=== PATIENT | male | born 1955 | race Caucasian/White ===

== ENCOUNTER 2019-10-12 15:25 | Observation (INO) | payer OTHER, SELFPAY ==
--- NOTE | ~2019-10-12 | US_ITS ---
EXAMINATION: US renal BI DATE: 10/13/2019 16:32 INDICATION: Urinary retention. Indeterminate left renal lesion on prior CT. TECHNIQUE: Multiple ultrasound grayscale images of the kidneys were obtained. COMPARISON: CT dated 10/12/2019 FINDINGS: The right kidney measures 12.6 x 5.8 x 6.0 cm. The left kidney measures 12.2 x 5.2 x 5.7 cm. The kidn eys demonstrate normal echogenicity. The left renal lesion of concern corresponds to a 2.0 cm simple appearing anechoic cyst. There is no hydronephrosis in either kidney. No stones identified. The blad segundo is clearly visualized, likely decompressed around a Wu catheter.. IMPRESSION: 1. Left renal lesion of concern corresponds to a 2.0 cm anechoic cyst. Otherwise normal kidneys with out hydronephrosis. Reviewed, dictated and finalized at location A. UNICATIONS DEPARTMENT CHAIRPERSON IMPRESSION: 1. Left renal lesion of concern corresponds to a 2.0 cm anechoic cyst. Otherwi se normal kidneys without hydronephrosis.
--- NOTE | ~2019-10-12 | CT_ITS ---
EXAMINATION: CT abdomen pelvis w con DATE: 10/12/2019 19:53 INDICATION: Right flank pain TECHNIQUE: Computed tomography (CT) of the abdomen and pelvis was performed with 100 mL Omnipaque-350 intravenous contrast. Automated exposure control and iterative reconstruction technique were employe d. The dose-length product was 811.91 mGy-cm. COMPARISON: None FINDINGS: Lung bases are clear. Heart size is normal. No pericardial or pleural effusion. Small sliding-type hi atal hernia. Liver, gallbladder, spleen, pancreas and bilateral adrenal glands are normal. A couple s ubcentimeter low-attenuation likely cyst in the right kidney which are too small to definitively bright acterize. 2.1 cm exophytic lesion at the interpolar region of the left kidney most likely proteinaceo us/hemorrhagic cyst although solid neoplasm cannot be absolutely excluded. Bladder is normal. Prostat omegaly. There are few scattered colonic diverticula predominantly along the proximal sigmoid colon w ithout adjacent inflammatory change to suggest diverticulitis. Small bowel and appendix are normal. B ilateral small fat-containing inguinal hernias. No free intraperitoneal gas or fluid. No pathological ly enlarged abdominal or pelvic lymphadenopathy. Moderate lower lumbar spondylosis. IMPRESSION: 1. No acute intra-abdominal/pelvic process. 2. 2.1 cm indeterminate exophytic left renal lesion most likely proteinaceous/hemorrhagic cyst althou gh solid neoplasm cannot be excluded. Could consider further evaluation with either ultrasound or pre and postcontrast CT or MRI. 3. Bilateral small fat-containing inguinal hernias. 4. Prostatomegaly. 5. Small sliding-type hiatal hernia. Reviewed, dictated and finalized at location A. OMER EXPERIENCE MANAGER IMPRESSION: 1. No acute intra-abdominal/pelvic process. 2. 2.1 cm indeterminate exophytic left renal lesion most likely proteinaceous/h emorrhagic cyst although solid neoplasm cannot be excluded. Could consider furt her evaluation with either ultrasound or pre and postcontrast CT or MRI. 3. Bilateral small fat-containing inguinal hernias. 4. Prostatomegaly. 5. Small sliding-type hiatal hernia.
[2019-10-12 15:52] VITALS: BP 152/81; PULSE 104; RESP 18; TEMP 37.9; O2SAT 95
[2019-10-12 16:11] LABS: Basophils Percent Auto 0.2 % (0.2-1.2); Eosinophils Absolute Auto 0.1 K/mm3 (0-0.3); Eosinophils Percent Auto 0.4 % (0-4.4); Hematocrit 46.3 % (42.0-52.0); Hemoglobin 15.5 g/dL (14.0-18.0); Immature Granulocyte Absolute 0.05 K/mm3 (0.00-0.031); Immature Granulocyte Percent A 0.3 % (0-0.5); Lymphocytes Absolute Auto 1.68 K/mm3 (0.9-3.2); Lymphocytes Percent Auto 10.8 % (18.3-44.2); Mean Corpuscular HGB Conc 33.5 g/dl (32-36); Mean Corpuscular Hemoglobin 30.3 pg (26-34); Mean Corpuscular Volume 90.6 fl (80-100); Mean Platelet Volume 9.4 fl (7.4-10.4); Monocytes Absolute Auto 1.5 K/mm3 (0.1-0.6); Monocytes Percent Auto 9.6 % (2.6-8.5); Neutrophils Absolute Auto 12.3 K/mm3 (1.3-6.7); Neutrophils Percent Auto 78.7 % (45.5-73.1); Platelet Count Result 312 k/mm3 (150-375); Red Blood Count 5.11 M/mm3 (4.6-6.20); Red Cell Distribution Width 12.3 % (11.5-14.5); White Blood Count 15.6 K/mm3 (4.5-10.0)
[2019-10-12 16:24] LABS: Blood Urea Nitrogen 18 mg/dL (9-20); Calcium 9.2 mg/dL (8.4-10.2); Carbon Dioxide 28 mmol/L (22-30); Chloride 97 mmol/L (98-107); Estimated CRCL calculation 71 ml/min; Estimated Glomerular Filt Rate > 60; Glucose 103 mg/dL (75-110); Potassium 4.3 mmol/L (3.4-5.0); Sodium 135 mmol/L (137-145)
[2019-10-12 16:31] LABS: Add Urine Microscopic? YES; Appearance Urine Clear (Clear); Bacteria Urine Trace /hpf; Bilirubin Urine Negative (Negative); Blood Urine 1+ (Negative); Color Urine Yellow (Yellow); Glucose Urine UA Negative (Negative); Ketones Urine Trace mg/dL (Negative); Leukocyte Esterase Ur 2+ LEU/UL (Negative); Mucus Urine Moderate /lpf; Nitrate Urine Negative (Negative); Protein Urine 1+ mg/dL (Negative); Specific Grav Ur 1.016 (1.001-1.035); WBC Urine >75 /hpf
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
[2019-10-12 18:03] LABS: Lactic Acid Reflex 1.2 mmol/L (0.7-2.1)
[2019-10-12] MEDS: SODIUM CHLORIDE 0.9% IV 1,000 ML 999 ML IV CONT (19:02)
[2019-10-12 20:15] VITALS: BP 138/63; PULSE 118; RESP 20; TEMP 38.2; O2SAT 99; BMI 26.7
[2019-10-12 20:53] VITALS: BMI 27.0
--- NOTE | 2019-10-12 20:57 | ADMGEN ---
This patient, Varghese Wild, was admitted to [facility] Surg Room 323-01. Patient/family oriented to hospital policies and general routines including ID bracelet, bed and alarms, visiting hours, pain management, procedures, bathroom and other care routines, personal items, smoking policy, room service/diet, and visiting hours. Valuables list has been completed. Information on how to activate the Rapid Response Team has been discussed. Patient/Family are encouraged to report perceived risks to care and to ask questions if they do not understand what they are told or what they should do.
[2019-10-13] VITALS (7 sets, daily range): BP systolic 109–118; BP diastolic 49–71; PULSE 88–136; RESP 18–20; TEMP 36.6–37.4; O2SAT 95–98
[2019-10-13] MEDS: SODIUM CHLORIDE 0.9% IV 1,000 ML 125 ML IV CONT ×3 (05:27→21:57)
--- NOTE | 2019-10-13 07:58 | ECG_ITS ---
Measurements Intervals [place] Rate: 136 P: 232 IA: 139 QRS: 78 QRSD: 95 T: 38 QT: 287 QTc: 433 Interpretive Statements SINUS TACHYCARDIA BORDERLINE R WAVE PROGRESSION, ANTERIOR LEADS BASELINE ARTIFACT- V4, V6 ABNORMAL ECG Electronically Signed On 10-13-2019 9:32:53 WIRE ROPE FABRICATION SUPERVISOR by Pedro Brenner D.O.
[2019-10-13] MEDS: CHOLECALCIFEROL 1,000 UNIT TABLET 5000 UNITS PO (08:00)
[2019-10-13] MEDS: FOLIC ACID 0.4 MG TABLET PO (08:11)
[2019-10-13] MEDS: METOPROLOL SUCCINATE EXT REL 25 MG TABCR PO (08:12)
[2019-10-13] MEDS: CYANOCOBALAMIN 500 MCG TABLET PO (08:12)
[2019-10-13] MEDS: THIAMINE HCL 100 MG TABLET PO (08:13)
[2019-10-13] MEDS: ASPIRIN 325 MG TABLET PO (08:13)
[2019-10-13] MEDS: ENOXAPARIN 40 MG/0.4 ML SYRINGE SUB-Q (08:13)
[2019-10-13 08:42] LABS: Troponin I < 0.012 ng/mL (0.000-0.034)
[2019-10-13] MEDS: TAMSULOSIN HCL 0.4 MG CAPSULE PO (10:34)
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
[2019-10-13] MEDS: DILTIAZEM HCL 30 MG TABLET PO ×3 (14:22→23:49)
[2019-10-13 15:43] LABS: Basophils Percent Auto 0.2 % (0.2-1.2); Eosinophils Absolute Auto 0.1 K/mm3 (0-0.3); Eosinophils Percent Auto 0.7 % (0-4.4); Hematocrit 39.5 % (42.0-52.0); Hemoglobin 12.8 g/dL (14.0-18.0); Immature Granulocyte Absolute 0.04 K/mm3 (0.00-0.031); Immature Granulocyte Percent A 0.3 % (0-0.5); Lymphocytes Percent Auto 15.4 % (18.3-44.2); Mean Corpuscular HGB Conc 32.4 g/dl (32-36); Mean Corpuscular Hemoglobin 29.8 pg (26-34); Mean Corpuscular Volume 92.1 fl (80-100); Mean Platelet Volume 9.3 fl (7.4-10.4); Monocytes Absolute Auto 1.4 K/mm3 (0.1-0.6); Monocytes Percent Auto 10.8 % (2.6-8.5); Neutrophils Absolute Auto 9.4 K/mm3 (1.3-6.7); Neutrophils Percent Auto 72.6 % (45.5-73.1); Platelet Count Result 236 k/mm3 (150-375); Red Blood Count 4.29 M/mm3 (4.6-6.20); Red Cell Distribution Width 12.4 % (11.5-14.5)
[2019-10-13 16:06] LABS: Blood Urea Nitrogen 11 mg/dL (9-20); Calcium 6.9 mg/dL (8.4-10.2); Carbon Dioxide 23 mmol/L (22-30); Chloride 111 mmol/L (98-107); Estimated CRCL calculation 114 ml/min; Estimated Glomerular Filt Rate > 60; Glucose 81 mg/dL (75-110); Potassium 3.4 mmol/L (3.4-5.0); Sodium 140 mmol/L (137-145)
[2019-10-13] MEDS: ACETAMINOPHEN 325 MG TABLET 650 MG PO (23:52)
[2019-10-14] VITALS: PULSE 86
[2019-10-14 04:00] VITALS: PULSE 72
[2019-10-14] MEDS: SODIUM CHLORIDE 0.9% IV 1,000 ML 80 ML IV CONT (05:20)
[2019-10-14 05:48] VITALS: BP 106/66; PULSE 77; RESP 16; TEMP 36.5; O2SAT 96
--- NOTE | 2019-10-14 05:58 | PC.NURSE ---
Blood cultures drawn at this time by causticiser. Will administer ordered antibiotic now.
[2019-10-14] MEDS: DILTIAZEM HCL 30 MG TABLET PO ×2 (06:04→11:45)
[2019-10-14] MEDS: AMPICILLIN 1 GM/NS 50 ML 1 GM/50 ML BAG IVPB ×2 (06:04→11:48)
[2019-10-14 06:33] LABS: Basophils Percent Auto 0.2 % (0.2-1.2); Eosinophils Absolute Auto 0.2 K/mm3 (0-0.3); Eosinophils Percent Auto 1.3 % (0-4.4); Hematocrit 39.5 % (42.0-52.0); Immature Granulocyte Absolute 0.06 K/mm3 (0.00-0.031); Immature Granulocyte Percent A 0.5 % (0-0.5); Lymphocytes Absolute Auto 1.82 K/mm3 (0.9-3.2); Lymphocytes Percent Auto 14.2 % (18.3-44.2); Mean Corpuscular HGB Conc 32.9 g/dl (32-36); Mean Corpuscular Hemoglobin 30.2 pg (26-34); Mean Corpuscular Volume 91.6 fl (80-100); Mean Platelet Volume 9.6 fl (7.4-10.4); Monocytes Absolute Auto 1.4 K/mm3 (0.1-0.6); Monocytes Percent Auto 11.3 % (2.6-8.5); Neutrophils Absolute Auto 9.3 K/mm3 (1.3-6.7); Neutrophils Percent Auto 72.5 % (45.5-73.1); Platelet Count Result 279 k/mm3 (150-375); Red Blood Count 4.31 M/mm3 (4.6-6.20); Red Cell Distribution Width 12.3 % (11.5-14.5); White Blood Count 12.8 K/mm3 (4.5-10.0)
[2019-10-14 06:46] LABS: Blood Urea Nitrogen 16 mg/dL (9-20); Calcium 8.6 mg/dL (8.4-10.2); Carbon Dioxide 23 mmol/L (22-30); Chloride 105 mmol/L (98-107); Estimated CRCL calculation 88 ml/min; Estimated Glomerular Filt Rate > 60; Glucose 99 mg/dL (75-110); Potassium 3.9 mmol/L (3.4-5.0); Sodium 138 mmol/L (137-145)
[2019-10-14 08:00] VITALS: PULSE 77; PULSE 81; RESP 16; O2SAT 96
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
[2019-10-14] MEDS: FOLIC ACID 0.4 MG TABLET PO (09:19)
[2019-10-14] MEDS: ASPIRIN 325 MG TABLET PO (09:19)
[2019-10-14] MEDS: CHOLECALCIFEROL 1,000 UNIT TABLET 5000 UNITS PO (09:19)
[2019-10-14] MEDS: ENOXAPARIN 40 MG/0.4 ML SYRINGE SUB-Q (09:20)
[2019-10-14] MEDS: CYANOCOBALAMIN 500 MCG TABLET PO (09:20)
[2019-10-14] MEDS: METOPROLOL SUCCINATE EXT REL 25 MG TABCR PO (09:21)
[2019-10-14] MEDS: TAMSULOSIN HCL 0.4 MG CAPSULE PO (09:21)
[2019-10-14] MEDS: THIAMINE HCL 100 MG TABLET PO (09:22)
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
--- NOTE | 2019-10-14 11:26 | PM.DS ---
DS: Diagnosis Admitting Diagnosis Admitting Diagnosis: Sepsis, unspecified organism Discharge Diagnosis (1) Sepsis: Qualifiers: Sepsis acute organ dysfunction status: unspecified Sepsis type: sepsis due to unspecified organism Qualified Code(s): A41.9 - Sepsis, unspecified organism Code(s): A41.9 - Sepsis, unspecified organism Status: Acute Assessment and Plan: The patient meets criteria for sepsis with tachycardia, low-grade fever, leukocytosis, and source of infection is a urinary tract infection. The patient was started on IV fluids, IV antibiotics for UTI. Today the patient's vitals are much improved. He has not had any more fever since yesterday, blood pressure is normal, heart rate is in the 70s, respiratory rate and oxygenation is normal on room air. Continue on antibiotics for UTI. (2) UTI (urinary tract infection): Qualifiers: Hematuria presence: without hematuria Urinary tract infection type: site unspecified Qualified Code(s): N39.0 - Urinary tract infection, site not specified Code(s): N39.0 - Urinary tract infection, site not specified Status: Acute Assessment and Plan: UTI as shown by urine analysis on arrival. Most likely secondary to BPH. This morning the patient's urine culture came back positive for Enterococcus species. It was zhang sensitive to both ampicillin and Macrobid. The patient was initially started on IV ampicillin this morning before sensitivities was back. Will continue the patient on oral antibiotics for Enterococcus UTI, with Macrobid 100 mg q.12hr for 7 days. Recommend a probiotic. Wu catheter was placed for urinary retention and have him follow-up with urology as an outpatient. (3) Prostatitis: Qualifiers: Prostatitis type: unspecified Qualified Code(s): N41.9 - Inflammatory disease of prostate, unspecified Code(s): N41.9 - Inflammatory disease of prostate, unspecified Status: Acute Assessment and Plan: On CT abdomen pelvis it showed prostatomegaly. Most likely releated to BPH. Started the patient on Flomax Urology was consulted and he will follow up with them as an outpatient. (4) Sinus tachycardia: Code(s): R00.0 - Tachycardia, unspecified Status: Acute Assessment and Plan: Could be secondary to acute infection with UTI, urinary retention or possible atrial flutter. Yesterday morning, he reported feeling palpitations and his heart rate was found to be in the 130s. He was placed on telemetry and an EKG was taken which showed sinus tachycardia heart rate 136 b. p.m. with no acute ST T-wave changes. The patient receive his metoprolol succinate 25 mg and was started on Cardizem 30 mg q6hrs of cardizem. Today, his Telemetry shows NSR, rate 76 bpm with few PVCs with one episode of sinus tachycardia >126 for almost 4 seconds then converted back to normal. Troponin was negative. Dr. Smiley evaluated the patient and recommended starting him on Cardizem 120 mg daily and follow up in his office in 1 week for furhter evaluation and medication changes if necessary. Explained to the patient about risk of bradycardia once UTI is treated correctly and to discontinue medication, Cardizem if his HR is below 60 bpm or if he is symptomatic after taking the medication and immediately call Dr. Cabrera office at that time for further evaluation. He understands and agrees with the plan. All questions answered. (5) History of atrial flutter: Code(s): Z86.79 - Personal history of other diseases of the circulatory system Status: Chronic Assessment and Plan: The patient recently had a cardioversion completed by Dr. Fredo HARDY coil assembler at [facility] July 2019 Since his cardio
--- NOTE | 2019-10-22 14:09 | PC.NURSE ---
Blood cx are negative.
== END 2019-10-14 13:30 | disposition home or self-care (01) ==
LOC: ANHED 18:51 → ANH3MEDSUR 18:59
PROVIDERS: Physician Assistant; Admitting Provider Internal Medicine; Emergency Provider Emergency Medicine; PCP Family Medicine; Visit Provider Internal Medicine
DX: A41.9 Sepsis, unspecified organism (principal); N39.0 Urinary tract infection, site not specified; B95.2 Enterococcus as the cause of diseases classified elsewhere; N41.9 Inflammatory disease of prostate, unspecified; N28.1 Cyst of kidney, acquired; Z79.82 Long term (current) use of aspirin; Z79.899 Other long term (current) drug therapy; Z86.79 Personal history of other diseases of the circulatory system; Z87.891 Personal history of nicotine dependence
CPT/HCPCS: 36415; 74177; 76775; 80048; 81001; 83605; 84484; 85025; 87040; 87077; 87086; 87088; 87186; 93005; 96360; 96361; 96365; 96372; 96374; 96376; 99285; A9270; G0378; J0290; J0696; J1650; J7030; Q9967

== ENCOUNTER 2022-02-11 09:19 | Outpatient (CLI) | payer OTHER, SELFPAY ==
--- NOTE | ~2022-02-11 | MR_ITS ---
EXAMINATION: MR pelvis wo/w con DATE: 02/11/2022 10:25 INDICATION: Malignant neoplasm of prostate. TECHNIQUE: Magnetic resonance imaging (MRI) of the pelvis was performed without and with 18 mL MultiH ance intravenous contrast. COMPARISON: CT abdomen and pelvis 10/12/2019 FINDINGS: The prostate is mildly enlarged. There is a 2.7 x 2.0 cm fluid collection between the rectum and pros posada, likely a hematoma. There are bilateral inguinal hernias containing fat. There are no pathologic ally enlarged lymph nodes. There is no free intraperitoneal fluid. There is no osseous malignancy. IMPRESSION: 1. Mildly enlarged prostate. No evidence of metastatic disease. Reviewed, dictated and finalized at location A.
[2022-02-11 09:46] LABS: Estimated Glomerular Filt Rate > 60
== END 2022-02-11 09:20 | disposition home or self-care (01) ==
LOC: ANHIMG 09:21
PROVIDERS: PCP Family Medicine; Visit Provider Radiology Radiation Oncology
DX: C61 Malignant neoplasm of prostate (principal)
CPT/HCPCS: 72197; A9577

== ENCOUNTER 2022-05-24 08:44 | Outpatient (CLI) | payer OTHER, SELFPAY ==
--- NOTE | ~2022-05-24 | US_ITS ---
EXAMINATION: US aorta [facility] DATE: 05/24/2022 09:33 CDT INDICATION: Screening for cardiovascular disease. Hypertension. Smoking history. High cholesterol. TECHNIQUE: Grayscale, color Doppler, and pulsed Doppler images of the aorta and common iliac arteries were obtained. COMPARISON: CT dated 10/12/2019. FINDINGS: The proximal aorta measures 2.8 cm greatest sagittal dimension. The mid aorta measures 2.2 cm greates t sagittal dimension. The distal aorta measures 1.8 cm greatest sagittal dimension. The right common internal iliac artery measures 1.3 cm. The left common iliac artery measures 1.3 cm. IMPRESSION: 1. Normal caliber aorta without evidence for aneurysm. Reviewed, dictated and finalized at location A.
== END 2022-05-24 08:45 | disposition home or self-care (01) ==
PROVIDERS: PCP Family Medicine; Visit Provider Physician Assistant
DX: Z13.6 Encounter for screening for cardiovascular disorders (principal)
CPT/HCPCS: 76706

== ENCOUNTER 2022-12-01 01:27 | Day surgery (SDC) | payer OTHER, SELFPAY ==
[2022-11-19 13:22] VITALS: BMI 27.9
--- NOTE | 2022-11-30 17:51 | PM.HPGS ---
History of Present Illness History of Present Illness Consent: Risks, benefits, and alternatives have been discussed and questions answered. Patient agrees to proceed with procedure. Chief complaint: neoplasm screening Narrative: Varghese Wild is a 67 year old male referred for colon cancer screening. Review of Systems Review of Systems: All systems reviewed & are unremarkable except as noted in HPI and below PMFSH Past Medical History Medical History BPH (benign prostatic hyperplasia) History of atrial flutter s/p ablation 07/2019 Overweight (BMI 25.0-29.9) Pre-diabetes Prostate cancer Sebaceous cyst Right upper shoulder Shingles about 5 years ago to left upper back, without residual issues Surgical History Surgical History History of tonsillectomy S/P ablation of atrial flutter 07/2019 [facility] S/P colonoscopy Status post radiation therapy Family History Family History Mother Patient's mother is Family history of lung cancer Father Patient's father is Heart attack 40's Heart disease Hypertension Social History Social History Social History: The patient had 2 sons and 1 in a motor vehicle accident. His Mirian Wild is his durable power privacy attorney for healthcare. The patient wishes to be a full code. 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 Patient started smoking when he was 12 years old and smoked for about 30 years. Smoking packs per day: 1 Smoking cigarettes per day: 20.0 Years smoked: 20 Smoking pack-years: 20.00 Smoking status: Former smoker Tobacco type: cigarettes Second hand tobacco smoke exposure: Yes Smoking end date: 09/05/90 Alcohol intake: current Alcohol use details: 2-3 drinks per month Substance use: never Substance use type: does not use Lack of Transportation: No Lack of Food: Never True Current Housing: I Have Housing Concerned About Future Housing: No Difficulty Paying Gas/Electric Bills: No Difficulty Paying for Meds: No Currently Unemployed: No Education: High School Diploma/GED Difficulty w/ Childcare or Family Care: No Living arrangements: with family Occupation/Education: retired Gender identity (if verbalized by the patient): Male Spiritual care concerns: No Agree to blood products: Yes Meds Home Medications and Allergies Home Medications Medication Instructions Recorded Confirmed Type cholecalciferol (vitamin D3) 125 5,000 unit PO DAILY 07/25/19 12/01/22 History mcg (5,000 unit) capsule cyanocobalamin (vitamin B-12) 500 500 mcg PO DAILY 07/25/19 12/01/22 History mcg tablet folic acid 400 mcg tablet 0.4 mg PO DAILY 07/25/19 12/01/22 History thiamine HCl (vitamin B1) 100 mg 100 mg PO DAILY 07/25/19 12/01/22 History tablet aspirin 325 mg tablet 325 mg PO DAILY 10/12/19 12/01/22 History diltiazem HCl 120 mg 120 mg PO DAILY #30 caps 10/14/19 12/01/22 Rx capsule,extended release 24 hr (Cardizem CD) metoprolol succinate 25 mg 25 mg PO DAILY #90 tabs 09/30/22 12/01/22 Rx tablet,extended release 24 hr rosuvastatin 5 mg tablet 5 mg PO DAILY 11/08/22 12/01/22 History tamsulosin 0.4 mg capsule 0.4 mg PO DAILY 11/19/22 12/01/22 History Allergies Allergy/AdvReac Type Severity Reaction Status Date / Time No Known Allergies Allergy Verified 12/01/22 07:47 Exam Const: General: alert Orientation/consciousness: patient oriented x3 Resp: Auscultation: clear to auscultation bilaterally Cardio: Rhythm: regular rhythm GI: GI Palp: Yes Soft to palpation and No Tenderness to palpation present (GI) Neuro: General: patient oriented x3 Assessment and Plan Assessment a
[2022-12-01 07:48] VITALS: BP 140/77; PULSE 78; RESP 16; TEMP 36.4; O2SAT 96; BMI 27.9
[2022-12-01] MEDS: LACTATED RINGERS 1,000 ML 150 ML IV CONT (07:57)
--- NOTE | 2022-12-01 08:30 | WPDANESEPPF ---
Anes - Initial Pre Proc Eval Procedure: Operation Date: 12/01/22 09:00 Proposed Procedures p Screening Colonoscopy - Randy Cazares MD Date/Time: 12/01/22 08:30 Surgeon: Randy Cazares MD Pre Op Diagnosis: neoplasm screening Patient Data Age: 67 Gender: M Height: 1.8 m Weight: 91 kg Last Vital Signs Temp 97.6 F 12/01/22 07:48 Pulse 78 12/01/22 07:48 Resp 16 12/01/22 07:48 BP 140/77 12/01/22 07:48 Pulse Ox 96 12/01/22 07:48 O2 Del Method Room Air 12/01/22 07:48 Allergies Allergy/AdvReac Type Severity Reaction Status Date / Time No Known Allergies Allergy Verified 12/01/22 07:47 Home Medications Medication Instructions Recorded Confirmed Type cholecalciferol (vitamin D3) 125 5,000 unit PO DAILY 07/25/19 12/01/22 History mcg (5,000 unit) capsule cyanocobalamin (vitamin B-12) 500 500 mcg PO DAILY 07/25/19 12/01/22 History mcg tablet folic acid 400 mcg tablet 0.4 mg PO DAILY 07/25/19 12/01/22 History thiamine HCl (vitamin B1) 100 mg 100 mg PO DAILY 07/25/19 12/01/22 History tablet aspirin 325 mg tablet 325 mg PO DAILY 10/12/19 12/01/22 History diltiazem HCl 120 mg 120 mg PO DAILY #30 caps 10/14/19 12/01/22 Rx capsule,extended release 24 hr (Cardizem CD) metoprolol succinate 25 mg 25 mg PO DAILY #90 tabs 09/30/22 12/01/22 Rx tablet,extended release 24 hr rosuvastatin 5 mg tablet 5 mg PO DAILY 11/08/22 12/01/22 History tamsulosin 0.4 mg capsule 0.4 mg PO DAILY 11/19/22 12/01/22 History Patient hx anesthesia problems: none Family hx anesthesia problems: none Results Review: All pre-operative results and documents have been reviewed as part of the pre-operative evaluation. [facility] Past Medical History Medical History BPH (benign prostatic hyperplasia) History of atrial flutter s/p ablation 07/2019 Overweight (BMI 25.0-29.9) Pre-diabetes Prostate cancer Sebaceous cyst Right upper shoulder Shingles about 5 years ago to left upper back, without residual issues Surgical History Surgical History History of tonsillectomy S/P ablation of atrial flutter 07/2019 by [facility] S/P colonoscopy Status post radiation therapy Family History Family History Mother Patient's mother is Family history of lung cancer Father Patient's father is Heart attack 40's Heart disease Hypertension Social History Social History Social History: The patient had 2 sons and 1 in a motor vehicle accident. His Mirian Wild is his durable power state's attorney for healthcare. The patient wishes to be a full code. 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 Patient started smoking when he was 12 years old and smoked for about 30 years. Smoking packs per day: 1 Smoking cigarettes per day: 20.0 Years smoked: 20 Smoking pack-years: 20.00 Smoking status: Former smoker Tobacco type: cigarettes Second hand tobacco smoke exposure: Yes Smoking end date: 09/05/90 Alcohol intake: current Alcohol use details: 2-3 drinks per month Substance use: never Substance use type: does not use Lack of Transportation: No Lack of Food: Never True Current Housing: I Have Housing Concerned About Future Housing: No Difficulty Paying Gas/Electric Bills: No Difficulty Paying for Meds: No Currently Unemployed: No Education: High School Diploma/GED Difficulty w/ Childcare or Family Care: No Living arrangements: with family Occupation/Education: retired Gender identity (if verbalized by the patient): Male Spiritual care concerns: No Agree to blood products: Yes Anes - Eval Final PreProcedure Day of Procedure 12/01/22 0
[2022-12-01 09:11] VITALS: BP 119/68; PULSE 74; RESP 14; O2SAT 92
[2022-12-01 09:21] VITALS: BP 120/76; PULSE 76; RESP 16; O2SAT 96
[2022-12-01 09:31] VITALS: BP 155/82; PULSE 70; RESP 20; O2SAT 98
== END 2022-12-01 09:42 | disposition home or self-care (01) ==
PROVIDERS: PCP Family Medicine; Visit Provider Internal Medicine Gastroenterology
PROC: 0DJD8ZZ Inspection of Lower Intestinal Tract, Via Natural or Artificial Opening Endoscopic (ICD-10-PCS; CPT 45378; principal; 2022-12-01 09:00)
DX: Z12.11 Encounter for screening for malignant neoplasm of colon (principal); K64.8 Other hemorrhoids; N40.0 Benign prostatic hyperplasia without lower urinary tract symptoms; Z79.82 Long term (current) use of aspirin; Z85.46 Personal history of malignant neoplasm of prostate; Z92.3 Personal history of irradiation; Z87.891 Personal history of nicotine dependence; E66.9 Obesity, unspecified; Z68.28 Body mass index [BMI] 28.0-28.9, adult
CPT/HCPCS: G0121; J2704; J7120

== ENCOUNTER 2023-03-25 08:07 | Outpatient (CLI) | payer OTHER, SELFPAY ==
[2023-03-29 08:48] LABS: Testosterone Total 480 ng/dL (250-1100)
== END 2023-03-25 08:08 | disposition home or self-care (01) ==
LOC: ANHGOSHLAB 08:09
PROVIDERS: PCP Family Medicine; Visit Provider Urology
DX: C61 Malignant neoplasm of prostate (principal)
CPT/HCPCS: 36415; 84153; 84403

== ENCOUNTER 2023-07-04 07:56 | Outpatient (CLI) | payer OTHER, SELFPAY ==
[2023-07-04 13:30] LABS: Alanine Aminotransferase 23 U/L (6-50); Albumin Level 4.3 g/dL (3.5-5.1); Alkaline Phosphatase 62 U/L (38-126); Anion Gap 3 mmol/L (8-16); Aspartate Amino Transferase 26 U/L (17-59); Bilirubin,Total 0.5 mg/dL (0.2-1.3); Blood Urea Nitrogen 20 mg/dL (9-20); Calcium 9.8 mg/dL (8.4-10.2); Carbon Dioxide 31 mmol/L (22-30); Chloride 102 mmol/L (98-107); Cholesterol 162 mg/dL (0-200); Estimated Glomerular Filt Rate > 60; Glucose 97 mg/dL (65-110); HDL Direct 58 mg/dL; Potassium 4.2 mmol/L (3.4-5.0); Sodium 136 mmol/L (137-145); Triglycerides 85 mg/dL (<150)
[2023-07-04 13:47] LABS: Hemoglobin A1C 5.4 % (<5.7)
[2023-07-04 13:49] LABS: LDL Cholesterol Direct 77 mg/dL
== END 2023-07-04 07:57 | disposition home or self-care (01) ==
PROVIDERS: PCP Family Medicine; Visit Provider Family Medicine
DX: E11.9 Type 2 diabetes mellitus without complications (principal); E78.5 Hyperlipidemia, unspecified
CPT/HCPCS: 36415; 80053; 80061; 83036

== ENCOUNTER 2023-09-27 07:55 | Outpatient (CLI) | payer OTHER, SELFPAY ==
[2023-09-27 14:54] LABS: Alanine Aminotransferase 17 U/L (6-50); Albumin Level 4.2 g/dL (3.5-5.1); Alkaline Phosphatase 65 U/L (38-126); Anion Gap 4 mmol/L (8-16); Aspartate Amino Transferase 50 U/L (17-59); Bilirubin,Total 0.7 mg/dL (0.2-1.3); Blood Urea Nitrogen 17 mg/dL (9-20); Calcium 9.6 mg/dL (8.4-10.2); Carbon Dioxide 33 mmol/L (22-30); Chloride 102 mmol/L (98-107); Cholesterol 149 mg/dL (0-200); Estimated Glomerular Filt Rate > 60; Glucose 76 mg/dL (65-110); HDL Direct 52 mg/dL; Potassium 4.4 mmol/L (3.4-5.0); Sodium 139 mmol/L (137-145); Triglycerides 99 mg/dL (<150)
[2023-09-27 15:06] LABS: LDL Cholesterol Direct 72 mg/dL
[2023-09-27 15:25] LABS: Prostate Specific Antigen 1.7 ng/mL (< OR = 4.0)
[2023-09-27 15:30] LABS: Hepatitis C Virus Antibody Negative (Negative)
[2023-09-27 16:39] LABS: Hemoglobin A1C 5.8 % (<5.7)
[2023-10-01 12:19] LABS: Testosterone Total 588 ng/dL (250-1100)
== END 2023-09-27 07:56 | disposition home or self-care (01) ==
LOC: ANHGOSHLAB 08:00
PROVIDERS: PCP Family Medicine
DX: E78.5 Hyperlipidemia, unspecified (principal); Z11.59 Encounter for screening for other viral diseases; C61 Malignant neoplasm of prostate
CPT/HCPCS: 36415; 80053; 80061; 83036; 84153; 84403; 86803

== ENCOUNTER 2023-12-02 09:26 | Outpatient (CLI) | payer MEDICARE, SELFPAY ==
--- NOTE | ~2023-12-02 | XR_ITS ---
XR abdomen/kub 1V 12/02/2023 09:37 INDICATION: Flank pain TECHNIQUE: KUB COMPARISON: None FINDINGS: Bowel gas pattern is normal. There is no evidence of free air, mass, organomegaly, ascites or obstruction. No abnormal calculi are seen. The bones appear intact. IMPRESSION: 1: No acute abdominal abnormality identified. Reviewed, dictated and finalized at location B.
== END 2023-12-02 09:27 | disposition home or self-care (01) ==
LOC: ANHIMG 09:28
PROVIDERS: PCP Family Medicine; Visit Provider Family Medicine
DX: K59.00 Constipation, unspecified (principal)
CPT/HCPCS: 74018

== ENCOUNTER 2024-01-02 07:55 | Outpatient (CLI) | payer MEDICARE, SELFPAY ==
[2024-01-02 19:43] LABS: Alanine Aminotransferase 17 U/L (6-50); Albumin Level 4.2 g/dL (3.5-5.1); Alkaline Phosphatase 65 U/L (38-126); Anion Gap 5 mmol/L (4-12); Aspartate Amino Transferase 31 U/L (17-59); Bilirubin,Total 0.4 mg/dL (0.2-1.3); Blood Urea Nitrogen 18 mg/dL (9-20); Calcium 9.5 mg/dL (8.4-10.2); Carbon Dioxide 29 mmol/L (22-30); Chloride 105 mmol/L (98-107); Estimated Glomerular Filt Rate > 60; Glucose 89 mg/dL (65-110); Potassium 4.1 mmol/L (3.4-5.0); Sodium 139 mmol/L (137-145)
[2024-01-02 20:00] LABS: Hemoglobin A1C 5.5 % (<5.7)
== END 2024-01-02 07:56 | disposition home or self-care (01) ==
PROVIDERS: PCP Family Medicine; Visit Provider Nurse Practitioner Family
DX: R73.03 Prediabetes (principal); R73.9 Hyperglycemia, unspecified; Z92.3 Personal history of irradiation
CPT/HCPCS: 36415; 80053; 83036

== ENCOUNTER 2025-01-15 08:08 | Outpatient (CLI) | payer MEDICARE, OTHER, SELFPAY ==
--- OUTSIDE RECORDS SUMMARY | 2025-01-15 08:16 | XMS_ITS | Encounter Summary ---
Author Organization [facility] Address [address] [place] [id number] Care Team Providers Care Dev Technical Mgr Name Role Phone Jonathan Mtaamoros MD Primary Care Provider [phone] Rajesh Gonzalez MD Unavailable [phone] Rowdy Smiley MD Unavailable [phone] Keaton Yoo MD Unavailable Unavailable Encounter Details Date Type Department Care Team (Late st Contact Info) Description 08/06/2020 Prep for Procedure [facility]-Ad[facility] Testing 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 No / Unsure 08/06/2020 10:11 AM BULLET SWAGING MACHINE OPERATOR documented as of this encounter Plan of Treatment Not on file documented as of this encounter Results * PRE-SURGICAL/PRE-PROCEDURE CORONAVIRUS (COVID 19) (08/11/2020 9:02 AM BULLET SWAGING MACHINE OPERATOR) CORONAVIRUS SARS COV 2 PCR (RESP) NOT DETECTED NOT DETECTED 08/12/2020 9:57 PM BULLET SWAGING MACHINE OPERATOR [facility] Comment: A Not Detected (negative) test result for this test means that SARS- CoV-2 RNA was not present in the specimen above the limit of detection. A negative result does not rule out the possibility of COVID-19 and should not be used as the sole basis for treatment or patient management decisions. If COVID-19 is still suspected, based on exposure history together with other clinical findings, re-testing should be considered in consultation with public health authorities. Laboratory test results should always be considered in the context of clinical observations and epidemiological data in making a final diagnosis and patient management decisions. Please review the Fact Sheets and FDA authorized labeling available for health care providers and patients using the following websites: https://www.[employer].PENRITH/home/Covid-19/HCP/[facility]/fact- sheet.html https://www.[employer].PENRITH/home/Covid-19/Patients/ Quest[employer]/fact-sheet.html This test has been authorized by the FDA under an Emergency Use Authorization (EUA) for use by authorized laboratories. Due to the current public health emergency, [facility] is receiving a high volume of samples from a wide variety of swabs and media for COVID-19 testing. In order to serve patients during this public health crisis, samples from appropriate clinical sources are being tested. Negative test results derived from specimens received in non-commercially manufactured viral collection and transport media, or in media and sample collection kits not yet authorized by FDA for COVID-19 testing should be cautiously evaluated and the patient potentially subjected to extra precautions such as additional clinical monitoring, including collection of an additional specimen. Methodology: Nucleic Acid Amplification Test (NAAT) includes RT-PCR or TMA Additional information about COVID-19 can be found at the [facility] website: www.Storyz.com/Covid19. Test performed at [facility] [address] [place] [address] Director: CATHERINE SPEARS DO,MPH FIRST TEST YES 08/11/2020 10:23 AM BULLET SWAGING MACHINE OPERATOR [facility] EMPLOYED IN HEALTHCARE NO 08/11/2020 10:23 AM BULLET SWAGING MACHINE OPERATOR [facility] SYMPTOMATIC DEFINED BY CDC NO 08/11/2020 10:23 AM BULLET SWAGING MACHINE OPERATOR [facility] DATE OF SYMPTOM ONSET NO 08/11/2020 10:45 AM [facility] HOSPITALIZATION STATUS NO 08/11/2020 10:23 AM BULLET SWAGING MACHINE OPERATOR [facility] PATIENT IN ICU NO 08/11/2020 10:23 AM BULLET SWAGING MACHINE OPERATOR [facility] RESIDENT OF [facility] NO 08/11/2020 10:23 AM BULLET SWAGING MACHINE OPERATOR [facility] NO 08/11/2020 10:45 AM [facility] PATIENT'S RACE WHITE OR 08/11/2020 10:23 AM [facility] ETHNICITY NONHISPANIC 08/11/2020 10:23 AM [facility] SOURCE (QST) NASOPHARYNGEAL SWAB 08/11/2020 10:23 AM [facility] NASOPHARYNGEAL SWAB / Unknown 08/11/2020 9:02 AM BULLET SWAGING MACHINE OPERATOR us Rajesh Gonzalez MD MICROBIOLOGY - GENERAL JOSIE MERINO Final Result [facility] [address] [place] [address], [facility] [address] [place] [address], documented in this encounter Visit Diagnoses Diagnosis Preop examination- Primary Preoperative examination, unspecified documented in this encounter Additional Health Concerns Infection Onset Date Last Indicated Resolved Time COVID-19 Rule Out 08/11/2020 08/11/2020 08/12/2020 9:57 PM BULLET SWAGING MACHINE OPERATOR documented as of this encounter Care Teams Dev Technical Mgr Relationship Specialty Start Date End Date Jonathan Matamoros MD PCP - General FAMILY PRACTICE 08/06/20 Rajesh Gonzalez MD [address] [place] [phone] Consulting Physician UROLOGY 08/06/20 Rowdy Smiley MD [address] [place] [address] Consulting Physician CARDIOVASCULAR DISEASE 08/06/20 Keaton Yoo MD [address] [place] [address] CARDIOLOGY 08/06/20 documented as of this encounter
--- OUTSIDE RECORDS SUMMARY | 2025-01-15 08:16 | XMS_ITS | Referral Summary ---
Author Organization [facility] [address] [facility] [address] Address [address] [place] [address] Care Team Providers Care Operations And Maintenance Technican Name Role Phone Jonathan Matamoros MD Primary Care Provider [phone] Jonathan Matamoros MD Unavailable [phone] Allergies No known active allergies Medications cholecalciferol (VITAMIN D-3) 5,000 unit tablet 5,000 Units 9 Active cyanocobalamin (Vitamin B-12) 500 mcg tablet Every 24 Hours 9 Active folic acid (FOLVITE) 400 mcg tablet Daily 9 Active metoprolol XL (TOPROL-XL) 25 mg 24 hr tablet Take 25 mg by mouth daily 9 Active thiamine HCl (VITAMIN B-1 ORAL) Take by mouth Active aspirin 325 mg tablet Take 325 mg by mouth daily 0 Active dilTIAZem CD/XR/XT (Cartia XT) 120 mg 24 hr capsule Cartia XT 120 mg capsule,extended release Active finasteride (PROSCAR) 5 mg tablet finasteride 5 mg tablet 1 qd Active tamsulosin (FLOMAX) 0.4 mg extended release capsule tamsulosin 0.4 mg capsule Active benzonatate (TESSALON) 200 mg capsuleIndicati ons:Bronchitis Take 1 capsule (200 mg total) by mouth 3 (three) times a day as needed for cough 30 capsule 1 Active albuterol HFA (PROVENTIL HFA,VENTOLIN HFA,PROAIR HFA) 90 mcg/actuation inhalerIndicati ons:Bronchitis Inhale 2 puffs every 4 (four) hours as needed for wheezing or shortness of breath 1 each 1 Active Active Problems Problem Noted Date Diagnosed Date Atrial flutter 09/13/2019 Overview (09/13/2019): Typical successfully ablated. No evidence of recurrence. Assessment & Plan (03/12/2020 8:41 AM CDT): Successful ablation. No indication for further workup. Assessment & Plan (09/13/2019 2:30 PM SEWER LINE REPAIRER): Typical. Successfully ablated mid July. No indication for antiarrhythmics repeat EP study center Paroxysmal atrial fibrillation 09/13/2019 Assessment & Plan (03/12/2020 8:42 AM CDT): No episodes current Марина. Chads score 0. No further treatment. Continue Toprol Assessment & Plan (09/13/2019 2:31 PM SEWER LINE REPAIRER): About 1/3 of patients with flutter ablation will have PAF. Episodes are extremely aerobic rare well tolerated would not recommend PVI. Anticoagulation management encounter 09/13/2019 Assessment & Plan (03/12/2020 8:42 AM CDT): Agree with discontinuation given Daniel score 0 Assessment & Plan (09/13/2019 2:31 PM SEWER LINE REPAIRER): Discussed with patient. Annual risk of stroke less than 2% but doing well so on Xarelto reasonable to continue. Social History Tobacco Use Types Packs/Day Years Used Date Smoking Tobacco: Former Cigarettes 1 1 - 2004 Smokeless Tobacco: Never Personal Safety Answer Date Recorded Getting School Help Needed Not on file 11/05 Sex and Gender Information Value Date Recorded Sex Assigned at Not on file Legal Sex Male 5:34 PM SEWER LINE REPAIRER Gender Identity Not on file Sexual Orientation Not on file Last Filed Vital Signs Vital Sign Reading Time Taken Comments Blood Pressure 159/80 08/30/2021 5:09 PM SEWER LINE REPAIRER Pulse 79 08/30/2021 5:09 PM SEWER LINE REPAIRER Temperature 36.9 C (98.5 F) 08/30/2021 5:09 PM SEWER LINE REPAIRER Respiratory Rate 20 08/30/2021 5:09 PM SEWER LINE REPAIRER Oxygen Saturation 95% 08/30/2021 5:09 PM SEWER LINE REPAIRER Inhaled Oxygen Concentration - - Weight 105.2 kg (232 lb) 08/30/2021 5:09 PM SEWER LINE REPAIRER Height 177.8 cm (5' 10 ) 08/30/2021 5:09 PM SEWER LINE REPAIRER Body Mass Index 33.29 08/30/2021 5:09 PM SEWER LINE REPAIRER Plan of Treatment Not on file Insurance [facility] Care Teams Operations And Maintenance Technican Relationship Specialty Start Date End Date Jonathan Matamoros MD PCP - General 07/19/19 Jonathan Matamoros MD Family Medicine 07/19/19
--- OUTSIDE RECORDS SUMMARY | 2025-01-15 08:16 | XMS_ITS | Clinical Summary ---
Author Organization [facility] [address] [facility] [address] Address [address] [place] [address] Care Team Providers Care Scenario Writer Name Role Phone Jonathan Matamoros MD Primary Care Provider [phone] Jonathan Matamoros MD Unavailable [phone] Allergies No known active allergies Medications cholecalciferol [...] workup. Assessment & Plan (09/13/2019 2:30 PM STEAM SHOVEL ENGINEER): Typical. Successfully ablated mid July. No indication for antiarrhythmics repeat EP study center Paroxysmal atrial fibrillation 09/13/2019 Assessment & Plan (03/12/2020 8:42 AM CDT): No episodes current Марина. Chads score 0. No further treatment. Continue Toprol Assessment & Plan (09/13/2019 2:31 PM STEAM SHOVEL ENGINEER): About 1/3 of patients with flutter ablation will have PAF. Episodes are extremely aerobic rare well tolerated would not recommend PVI. Anticoagulation management encounter 09/13/2019 Assessment & Plan (03/12/2020 8:42 AM CDT): Agree with discontinuation given Daniel score 0 Assessment & Plan (09/13/2019 2:31 PM STEAM SHOVEL ENGINEER): Discussed with patient. Annual risk of stroke less than 2% but doing well so on Xarelto reasonable to continue. Surgical History Surgery Date Site/Laterality Comments ABLATION Family History Medical History Relation Name Comments Heart failure Father Lung cancer Mother Relation Name Status Comments Father Mother Social History Tobacco Use Types Packs/Day Years Used Date Smoking Tobacco: Former Cigarettes 1 - 2004 Smokeless Tobacco: Never Personal Safety Answer Date Recorded Getting School Help Needed Not on file 11/05 Sex and Gender Information Value Date Recorded Sex Assigned at Not on file Legal Sex Male 5:34 PM STEAM SHOVEL ENGINEER Gender Identity Not on file Sexual Orientation Not on file Obstetrics History Last Filed Vital Signs Vital Sign Reading Time Taken Comments Blood Pressure 159/80 08/30/2021 5:09 PM STEAM SHOVEL ENGINEER Pulse 79 08/30/2021 5:09 PM STEAM SHOVEL ENGINEER Temperature 36.9 C (98.5 F) 08/30/2021 5:09 PM STEAM SHOVEL ENGINEER Respiratory Rate 20 08/30/2021 5:09 PM STEAM SHOVEL ENGINEER Oxygen Saturation 95% 08/30/2021 5:09 PM STEAM SHOVEL ENGINEER Inhaled Oxygen Concentration - - Weight 105.2 kg (232 lb) 08/30/2021 5:09 PM STEAM SHOVEL ENGINEER Height 177.8 cm (5' 10 ) 08/30/2021 5:09 PM STEAM SHOVEL ENGINEER Body Mass Index 33.29 08/30/2021 5:09 PM STEAM SHOVEL ENGINEER Plan of Treatment Not on file Insurance [employer] Care Teams Scenario Writer Relationship Specialty Start Date End Date Jonathan Matamoros MD PCP - General 07/19/19 Jonathan Matamoros MD Family Medicine 07/19/19
--- OUTSIDE RECORDS SUMMARY | 2025-01-15 08:16 | XMS_ITS | Continuity of Care Document ---
Author Organization [facility] Address [address] [place] [address] [place] [address] Phone Care Team Providers Care Frontend Engineer Name Role Phone Oh Macedo DO Unavailable Unavailable Advance Directives Directive Yes / No Effective Date File Name No Information Encounters Encounter Description Practice Location Reason(s) For Visit Diagnoses Date Provider Providers Copied on Encounter [facility], [id number] [place] [address] [address], [place], [place], [id number], [place] tel:[phone] [facility] No Information Hellen Jacobson. [address] [place], [address], [place]. tel: [phone] Family History Family Member Type Diagnosis Age At Onset No Information Payers Payer name Insurance type Covered libertarian ID Authoriza tithais(s) [employer] SOI CI [id number] Social History Type Description Quantity Date Captured [...]
--- OUTSIDE RECORDS SUMMARY | 2025-01-15 08:16 | XMS_ITS | Clinical Summary ---
Author Organization [facility] Address [address] [place] [address] Care Team Providers Care Elementary [employer] Director Name Role Phone Jonathan Matamoros MD Primary Care Provider [phone] Rajesh Gonzalez MD Unavailable [phone] Rowdy Smiley MD Unavailable [phone] Keaton Yoo MD Unavailable Unavailable Allergies No known active allergies Medications EQ ASPIRIN 325 MG tablet Take 325 mg by mouth daily. 06/13/2020 Active dilTIAZem CD (CARTIA XT) 120 MG 24 hr capsule Take 1 capsule by mouth daily. Active finasteride 5 MG tablet Take 1 tablet by mouth daily. Active metoprolol succinate ER 25 MG 24 hr tablet Take 25 mg by mouth daily. 06/13/2020 Active tamsulosin 0.4 MG Cap Take 0.4 mg by mouth daily. 07/23/2020 Active folic acid 400 MCG tablet Take 400 mcg by mouth daily. Active vitamin D3, cholecalciferol , 5000 UNITS capsule Take 1 capsule by mouth daily. Active vitamin B-12 500 MCG tablet Take 500 mcg by mouth daily. Active vitamin B-1 100 MG tablet Take 100 mg by mouth daily. Active Family History Medical History Relation Comments Heart Disease Father mi Cancer Mother lung Diabetes Paternal Aunt Relation Status Comments Father Mother Paternal Aunt Social History Tobacco Use Types Packs/Day Years Used Date Smoking Tobacco: Former Cigarettes 1 15 1 10/07/1984 - 08/06/2000 Smokeless Tobacco: Never Alcohol Use Standard Drinks/Week Comments Not Currently 0 (1 standard drink = 0.6 oz pur e alcohol) Sex and Gender Information Value Date Recorded Sex Assigned at Not on file Legal Sex Male 3:10 PM HEARING AID REPAIR TECHNICIAN Gender Identity Not on file Sexual Orientation Not on file Last Filed Vital Signs Vital Sign Reading Time Taken Comments Blood Pressure 139/80 08/06/2020 10:00 AM HEARING AID REPAIR TECHNICIAN Pulse 76 08/06/2020 10:00 AM HEARING AID REPAIR TECHNICIAN Temperature - - Respiratory Rate 16 08/06/2020 10:00 AM HEARING AID REPAIR TECHNICIAN Oxygen Saturation 98% 08/06/2020 10:00 AM HEARING AID REPAIR TECHNICIAN Inhaled Oxygen Concentration - - Weight 90.4 kg (199 lb 6.4 oz) 08/06/2020 10:00 AM HEARING AID REPAIR TECHNICIAN Height 180.3 cm (5' 11 ) 08/06/2020 10:00 AM HEARING AID REPAIR TECHNICIAN Body Mass Index 27.81 08/06/2020 10:00 AM HEARING AID REPAIR TECHNICIAN Plan of Treatment Health Maintenance Due Date Last Done Comments Colorectal Cancer Screening Colonoscopy (10 Years) 1955 Hepatitis C 1974 DTaP, Tdap and Td Vaccines ( 1 - Tdap) 1975 Pneumococcal Vaccine: 50+ Ye ars (1 of 1 - PCV) 2006 Zoster Vaccines (1 of 2) 2006 RSV Immunization or 60+ Years (1 - Risk 60-74 years 1-dose series) 2016 COVID-19 Vaccine ( - 2023-2 5 season) 2024 Meningococcal B Vaccine Aged Out No l onger eligible based on patient's age to complete this topic Meningococcal Vaccine Aged Out No brodie ale eligible based on patient's age to complete this topic RSV Immunizations Under 20 Months Aged Out No longer eligible based on patient's age to complete this topic Insurance [facility] Care Teams Elementary [employer] Director Relationship Specialty Start Date End Date Jonathan Matamoros MD PCP - General FAMILY PRACTICE 08/06/20 Rajesh Gonzalez MD [address] [place] [phone] Consulting Physician UROLOGY 08/06/20 Rowdy Smiley MD [address] [place], [place] [id number] Consulting Physician CARDIOVASCULAR DISEASE 08/06/20 Keaton Yoo MD [address] [place] [address] CARDIOLOGY 08/06/20
[2025-01-15 13:10] LABS: Basophils Percent Auto 0.5 % (0.2-1.2); Eosinophils Absolute Auto 0.1 K/mm3 (0-0.3); Eosinophils Percent Auto 2.5 % (0-4.4); Hematocrit 48.3 % (42.0-52.0); Hemoglobin 15.6 g/dL (14.0-18.0); Immature Granulocyte Absolute 0.01 K/mm3 (0.00-0.031); Immature Granulocyte Percent A 0.2 % (0-0.5); Lymphocytes Absolute Auto 1.72 K/mm3 (0.9-3.2); Lymphocytes Percent Auto 31.2 % (18.3-44.2); Mean Corpuscular HGB Conc 32.3 g/dl (32-36); Mean Corpuscular Hemoglobin 30.5 pg (26-34); Mean Corpuscular Volume 94.5 fl (80-100); Mean Platelet Volume 9.6 fl (7.4-10.4); Monocytes Absolute Auto 0.7 K/mm3 (0.1-0.6); Monocytes Percent Auto 12.7 % (2.6-8.5); Neutrophils Absolute Auto 2.9 K/mm3 (1.3-6.7); Neutrophils Percent Auto 52.9 % (45.5-73.1); Platelet Count Result 268 k/mm3 (150-375); Red Blood Count 5.11 M/mm3 (4.6-6.20); Red Cell Distribution Width 12.9 % (11.5-14.5); White Blood Count 5.5 K/mm3 (4.5-10.0)
[2025-01-15 13:42] LABS: Vitamin D 25 Hydroxy 90.5 ng/mL
[2025-01-15 13:47] LABS: Hemoglobin A1C 5.4 % (<5.7)
[2025-01-15 13:56] LABS: Alanine Aminotransferase 15 U/L (6-50); Albumin Level 4.4 g/dL (3.5-5.1); Alkaline Phosphatase 70 U/L (38-126); Anion Gap 7 mmol/L (4-12); Aspartate Amino Transferase 44 U/L (17-59); Bilirubin,Total 0.5 mg/dL (0.2-1.3); Blood Urea Nitrogen 14 mg/dL (9-20); Calcium 9.2 mg/dL (8.4-10.2); Carbon Dioxide 28 mmol/L (22-30); Chloride 103 mmol/L (98-107); Cholesterol 181 mg/dL (0-200); Estimated Glomerular Filt Rate > 60; Glucose 82 mg/dL (65-110); HDL Direct 79 mg/dL; Potassium 4.4 mmol/L (3.4-5.0); Sodium 138 mmol/L (137-145); Triglycerides 96 mg/dL (<150)
[2025-01-15 14:09] LABS: LDL Cholesterol Direct 67 mg/dL
[2025-01-15 14:28] LABS: Prostate Specific Antigen 0.6 ng/mL (< OR = 4.0)
== END 2025-01-15 08:09 | disposition home or self-care (01) ==
PROVIDERS: PCP Family Medicine; Visit Provider Family Medicine
DX: E78.5 Hyperlipidemia, unspecified (principal); N41.9 Inflammatory disease of prostate, unspecified; E53.8 Deficiency of other specified B group vitamins; E55.9 Vitamin D deficiency, unspecified; I48.92 Unspecified atrial flutter; R73.03 Prediabetes; Z12.5 Encounter for screening for malignant neoplasm of prostate
CPT/HCPCS: 36415; 80053; 80061; 82306; 82607; 83036; 84153; 85025; G0103

== ENCOUNTER 2025-07-10 09:26 | Inpatient (IN) | payer MEDICARE, OTHER, SELFPAY ==
--- OUTSIDE RECORDS SUMMARY | 2002-11-15 02:00 | XMS_ITS | Continuity of Care Document ---
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 [address] [place], [address], [place]. tel: [phone] Family History Family Member Type Diagnosis Age At Onset No Information Payers Payer name Insurance type Covered republican ID Authoriza tithais(s) [employer] SOI CI [id number] Social History Type Description Quantity Date Captured Comments Sex Male Smoking Status No Information Chief Complaint And Reason For Visit No Information Reason For Referral Reason For Referral No Information History Of Present Illness Encounter Date Complaint History Of Prese nt Illness No Information Functional Status Date Functional Assessmen t No Information Instructions Date Instruction Additional Infor mation No Information Assessments Type Assessment Date No Information Patient Care Teams Name Effective Dates (start - stop) Status Members No Information
[2025-07-10] VITALS (34 sets, daily range): BP systolic 120–153; BP diastolic 66–82; PULSE 69–102; RESP 11–24; TEMP 36.6–36.9; O2SAT 88–98; BMI 28.7
--- NOTE | ~2025-07-10 | CT_ITS ---
CT brain without contrast HISTORY: Seizure-like activity COMPARISON: None. TECHNIQUE: Multiplanar images were obtained of the head without intravenous contrast. FINDINGS: ICH: No acute intracranial hemorrhage, mass effect or midline shift. No extra- axial fluid collections. Mass(es): There is no mass or mass effect seen. CVA: No evidence of acute infarct is seen. CSF Spaces: There is no evidence of hydrocephalus. The CSF spaces are appear normal. Skull: The calvarium is intact. Sinuses/Mastoids: There is near complete opacification of the right maxillary sinus and one of the anterior right ethmoids. There is some degree of mucosal thickening in the nasal cavity. The Mastoid air cells are clear. IMPRESSION: No acute brain findings. Sinus disease as described. All CT scans at this facility are performed using low dose modulation techniques as appropriate to perform exam including the following: automated exposure control; use of iterative reconstruction technique; adjustment of the mA and/or kV according to patient size (this includes techniques or standardized protocols for targeted exams where dose is matched to indication/reason for exam). Reviewed, dictated and finalized at location A. ERVATION ENFORCEMENT OFFICER IMPRESSION: No acute brain findings. Sinus disease as described. All CT scans at this facility are performed using low dose modulation techniqu es as appropriate to perform exam including the following: automated exposure c ontrol; use of iterative reconstruction technique; adjustment of the mA and/or kV according to patient size (this includes techniques or standardized protocol s for targeted exams where dose is matched to indication/reason for exam).
--- NOTE | ~2025-07-10 | XR_ITS ---
Clinical history:Hypoxia. Syncope versus seizure EXAM:X-ray chest 2 views TECHNIQUE:Frontal and lateral images of the chest were obtained. Comparisons:07/16/2019 FINDINGS: Cardiomediastinal silhouette is enlarged, unchanged. No pneumothorax. No pleural effusion. No free air the diaphragm. Small opacities in the lower lungs. Probable moderate-sized hiatal hernia. IMPRESSION: 1. Small opacities in the mid and lower lungs which represents atelectasis/scarring or infiltrates. If symptoms persist or worsen, consider a short-term follow-up study or additional imaging for further assessment. Reviewed, dictated and finalized at location Q. CHOOL DISABILITY TEACHER IMPRESSION: 1. Small opacities in the mid and lower lungs which represents atelectasis/scar ring or infiltrates. If symptoms persist or worsen, consider a short-term follow-up study or additio nal imaging for further assessment.
--- NOTE | ~2025-07-10 | US_ITS ---
EXAMINATION: US carotid duplex BI DATE: 07/11/2025 20:43 INDICATION: Loss of consciousness TECHNIQUE: Grayscale, color Doppler, and pulsed Doppler images of the cervical carotid arteries were obtained. The degree of vessel stenosis is placed in one of the following categories: normal, <50%, 50-69%, >=70% but less than near- occlusion, near-occlusion, or total occlusion. Note that percent stenosis relative to normal distal artery lumen diameter is indirectly measured from velocity measurements as described by Christopher, et al. Radiology 2003; 229:340-346. Notes: Normal: Peak systolic velocity <125 centimeters/sec and no plaque <50%. Peak systolic velocity <125 (EDV <40; ICA/CCA PSV ratio <2.0; used these factors only a tandem lesions or low cardiac output or contralateral disease) 50-69 %: PSV 125-230 (EDV 40-100; ratio 2-4) >= 70% but less than near occlusion: PSV greater than 230 (EDV > 100; ratio> 4.0) Near Occlusion: PSV that is variable; markedly narrowed lumen Occlusion: Absent flow on color/spectral Doppler and no lumen on franklin scale. COMPARISON: None. FINDINGS: RIGHT: The right common carotid artery (CCA) peak systolic velocity (PSV) is 125 cm/s. The right internal carotid artery (ICA) PSV is 72 cm/s. The right ICA end- diastolic velocity (EDV) is 18 cm/s. The right ICA/CCA PSV ratio is 0.6. The external carotid artery (ECA) PSV is 55 cm/s. There is antegrade flow in the right vertebral artery. LEFT: The left CCA PSV is 86 cm/s. The left ICA PSV is 76 cm/s. The left ICA EDV is 13 cm/s. The left ICA/CCA PSV ratio is 0.9. The ECA PSV is 80 cm/s. There is antegrade flow in the left vertebral artery. IMPRESSION: 1. Less than 50% stenosis in the right internal carotid artery by sonographic criteria. 2. Less than 50% stenosis in the left internal carotid artery by sonographic criteria. Reviewed, dictated and finalized at location O. D SERVICES DIRECTOR IMPRESSION: 1. Less than 50% stenosis in the right internal carotid artery by sonographic [place]. 2. Less than 50% stenosis in the left internal carotid artery by sonographic aric klein.
--- NOTE | ~2025-07-10 | MR_ITS ---
EXAM/PROCEDURE: MR brain/brain stem wo/w con HISTORY: seizure-like activity COMPARISON: None available. TECHNIQUE: Pre and postcontrast enhanced brain MRI performed. Contrast: 20 mL MultiHance FINDINGS: No mass, mass effect or bleed. No restricted diffusion or acute ischemic event. On postcontrast series no abnormal enhancing lesions or masses. Minimal volume loss and mild chronic appearing microvascular ischemic white matter changes. Brainstem and cerebellum are unremarkable. Paranasal calvarial structures with complete opacification of the right maxillary sinus but otherwise normal. IMPRESSION: 1. No discrete lesion, acute ischemic event or hemorrhage. 2. Mild chronic microvascular ischemic white matter changes. 3. Complete opacification of the right maxillary sinus consistent with paranasal sinus disease. Reviewed, dictated and finalized at location A. RIOR SURFACE INSULATION WORKER IMPRESSION: 1. No discrete lesion, acute ischemic event or hemorrhage. 2. Mild chronic microvascular ischemic white matter changes. 3. Complete opacification of the right maxillary sinus consistent with paranasa l sinus disease.
--- NOTE | 2025-07-10 09:37 | ECG_ITS ---
Test Date: 2025-07-10 09:40:42 Measurements Intervals [place] Rate: 91 P: 47 IN: 188 QRS: 81 QRSD: 150 T: 35 QT: 392 QTc: 485 Interpretive Statements SINUS RHYTHM RIGHT BUNDLE BRANCH BLOCK [120+ ms QRS DURATION, UPRIGHT V1, 40+ ms S IN I/aVL/V4/V5/V6] ABNORMAL ECG No previous ECG available for comparison Electronically Signed On 07-10-2025 14:40:04 JIGMAN by Rajesh Travis M.D.
[2025-07-10 10:06] LABS: Hematocrit 45.7 % (42.0-52.0); Hemoglobin 15.5 g/dL (14.0-18.0); Immature Granulocyte Percent A 0.4 % (0-0.5); Lymphocytes Absolute Auto 1.28 K/mm3 (0.9-3.2); Mean Corpuscular HGB Conc 33.9 g/dl (32-36); Mean Corpuscular Hemoglobin 31.1 pg (26-34); Mean Corpuscular Volume 91.6 fl (80-100); Nucleated Red Blood Cells Absolute Auto 0.000 K/mm3 (0.0-0.012); Nucleated Red Blood Cells Perc 0.0 % (0.0-0.2); Platelet Count Result 256 k/mm3 (150-375); Red Blood Count 4.99 M/mm3 (4.6-6.20); White Blood Count 6.9 K/mm3 (4.5-10.0)
--- NOTE | 2025-07-10 10:18 | ED.SEIZURE ---
HPI - Seizure General Chief Complaint: Seizure <Therese Choudhury PA-C - Last Filed: 07/10/25 17:37> Stated Complaint: seizure <Therese Choudhury PA-C - Last Filed: 07/10/25 17:37> Time Seen by Provider: 07/10/25 09:37 <Therese Choudhury PA-C - Last Filed: 07/10/25 17:37> Source: patient <COURTNEY Montoya Last Filed: 07/10/25 17:37> Mode of arrival: EMS <COURTNEY Montoya Last Filed: 07/10/25 17:37> Limitations: other (patient does not remember incident) <COURTNEY Montoya Last Filed: 07/10/25 17:37> History of Present Illness HPI Narrative: This is a 70 year old male that presents to the ER after a possible seizure. He was at his dentist office and remembers having numbing gel on his gum. He was given an injection and was reported to have a couple of minutes of seizure like activity. Reports feeling weak currently. No prodromal symptoms. Denies chest pain, shortness of breath, focal numbness, weakness. <Therese Choudhury PA-C - Last Filed: 07/10/25 17:37> Related Data Home Medications: Home Medications ?Medication ?Instructions ?Recorded ?Confirmed ?Last Taken ?Type cholecalciferol (vitamin D3) 125 5,000 unit PO DAILY 07/25/19 07/10/25 07/10/25 History mcg (5,000 unit) capsule cyanocobalamin (vitamin B-12) 500 500 mcg PO DAILY 07/25/19 07/10/25 07/10/25 History mcg tablet folic acid 400 mcg tablet 0.4 mg PO DAILY 07/25/19 07/10/25 07/10/25 History thiamine HCl (vitamin B1) 100 mg 100 mg PO DAILY 07/25/19 07/10/25 07/10/25 History tablet aspirin 325 mg tablet 325 mg PO DAILY 10/12/19 07/10/25 07/10/25 History docusate sodium 100 mg capsule 100 mg PO DAILY 01/06/24 07/10/25 07/10/25 History (Colace) <Therese Choudhury PA-C - Last Filed: 07/10/25 17:37> Allergies/Adverse Reactions: Allergies Allergy/AdvReac Type Severity Reaction Status Date / Time No Known Allergies Allergy Verified 07/10/25 18:22 <Therese Choudhury PA-C - Last Filed: 07/10/25 17:37> Review of Systems Review of Systems: All systems reviewed & are unremarkable except as noted in HPI and below <Therese Choudhury PA-C - Last Filed: 07/10/25 17:37> [facility] Past Medical History Medical History: Medical History HTN (hypertension) Hyperlipidemia LDL goal <100 BPH (benign prostatic hyperplasia) History of atrial flutter s/p ablation 07/2019 Status post radiation therapy Prostate cancer Overweight (BMI 25.0-29.9) Pre-diabetes Shingles about 5 years ago to left upper back, without residual issues Sebaceous cyst Right upper shoulder <Therese Choudhury PA-C - Last Filed: 07/10/25 17:37> Surgical History Surgical History: Surgical History S/P colonoscopy History of tonsillectomy S/P ablation of atrial flutter 07/2019 by [facility] <Therese Choudhury PA-C - Last Filed: 07/10/25 17:37> Family History Family History: Family History Mother Patient's mother is Family history of lung cancer Father Patient's father is Heart attack 40's Heart disease Hypertension <COURTNEY Montoya Last Filed: 07/10/25 17:37> Social History Social History: Social History Social History: The patient had 2 sons and 1 in a motor vehicle accident. His Mirian Wild is his durable power criminal attorney for healthcare. The patient wishes to be a full code. 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 Patient started smoking when he was 12 years old and smoked for about 30 years. Smoking packs per day: 1 Smoking cigarettes per day: 20.0 Years smoked: 20 Smoking pack-years: 20.00 Smoking status: Former smoker Tobacco type: cigarettes Second hand tobacco smoke exposure: Yes Smoking end date: 09/05/90 Alcohol intake: never Alcohol use details: 2-3 drinks per month Substance use: never Substance use type: does not use Lack of Transportation: No Lack of Food: Never True Current Housing: I Have Housing Concerned About Future Housing: No Difficulty Paying Gas/Electric Bills: No Difficulty Paying for Meds: No Currently Unemployed: No Education: High School Diploma/GED Difficulty w/ Childcare or Family Care: No Living arrangements: with family Occupation/Education: retired Gender identity (if verbalized by the patient): Male Spiritual care concerns: No Agree to blood products: Yes <Therese Choudhury PA-C - Last Filed: 07/10/25 17:37> Exam Narrative: GENERAL: Well-appearing, well-nourished, and in no acute distress. HEAD: Normocephalic, atraumatic. EYES: PERRLA and EOMI. ENT: Nares clear, no rhinorrhea or epistaxis. Mucous membranes moist. Oropharynx without tonsillar hypertrophy exudate or other lesions. Bilateral TMs pearly franklin non-bulging NECK: Supple. No adenopathy or masses. CHEST: Clear to auscultation. No respiratory distress. No wheezes rales or rhonchi HEART: Regular rate and rhythm. No murmur heard. Normal peripheral pulses. ABDOMEN: Soft, nontender, nondistended, normal active bowel sounds. EXTREMITIES: Normal range of motion. No edema. Strength equal in bilateral upper and lower extremities (5/5) SKIN: Warm, dry, no rash. NEURO: No focal deficits. Alert and oriented x3. Cranial nerves 2-12 grossly intact PSYCH: Normal mood and affect <Therese Choudhury PA-C - Last Filed: 07/10/25 17:37> Course MEDICAL LAB ASSISTANT/PA Physician Supervision I was notified (EMS radio report) that this patient would be presenting. Reportedly seizure activity with no history although while at dentist office so iniital suspicion for possible syncope /vasovagal event with myoclonic jerk. Vitals available for consultation while this patient was in the emergency department but did not personally evaluate them and was not directly involved in their care. <Bren Goodman MD - Last Filed: 07/10/25 19:36> Vital Signs Vital signs: Vital Signs Temperature 98.4 F 07/10/25 09:27 Pulse Rate 99 07/10/25 09:27 Respiratory Rate 21 H 07/10/25 09:27 Blood Pressure 132/79 07/10/25 09:27 Pulse Oximetry 96 07/10/25 09:27 Oxygen Delivery Room Air 07/10/25 09:27 Temperature 98.1 F 07/10/25 18:15 Pulse Rate 79 07/10/25 18:15 Respiratory Rate 20 07/10/25 18:15 Blood Pressure 145/77 H 07/10/25 18:15 Pulse Oximetry 98 07/10/25 18:15 Oxygen Delivery Room Air 07/10/25 18:47 Oxygen Flow Rate 1 07/10/25 12:00 <Therese Choudhury PA-C - Last Filed: 07/10/25 17:37> Vital Signs Temperature 98.4 F 07/10/25 09:27 Pulse Rate 99 07/10/25 09:27 Respiratory Rate 21 H 07/10/25 09:27 Blood Pressure 132/79 07/10/25 09:27 Pulse Oximetry 96 07/10/25 09:27 Oxygen Delivery Room Air 07/10/25 09:27 Temperature 98.1 F 07/10/25 18:15 Pulse Rate 79 07/10/25 18:15 Respiratory Rate 20 07/10/25 18:15 Blood Pressure 145/77 H 07/10/25 18:15 Pulse Oximetry 98 07/10/25 18:15 Oxygen Delivery Room Air 07/10/25 18:47 Oxygen Flow Rate 1 07/10/25 12:00 <Bren Goodman MD - Last Filed: 07/10/25 19:36> MDM - Seizure MDM Narrative Medical decision making narrative: Patient presents the emergency department for seizure versus syncope. Reported seizure-like activity at the dentist after receiving injection some numbing medication. He was not incontinent. He did not bite his tongue. No notable postictal period. He is neurologically intact. Hypoxic into the upper 80s on room air. Placed on oxygen via nasal cannula. Cbc without leukocytosis. Metabolic panel without concerning findings. Urine with evidence of infection. Drug screen is negative. D-dimer is not elevated. Influenza, RSV and COVID screens are negative. Chest x-ray showing opacities in the mid and lower lung zones. Blood cultures obtained, patient started on IV antibiotics. CT brain shows sinus disease. Spoke with hospitalist about patient and workup who accepts admission. Spoke with Neurology who will consult <Therese Choudhury PA-C - Last Filed: 07/10/25 17:37> Differential Diagnosis Differential diagnosis: Likely new onset seizure, epileptic seizure and other (syncope, pneumonia, upper respiratory infection, electrolyte derangement, dehydration) <COURTNEY Montoya Last Filed: 07/10/25 17:37> Lab Data Attestation: I reviewed the patient's lab results. <COURTNEY Montoya Last Filed: 07/10/25 17:37> Result diagrams: 07/10/25 09:59 07/10/25 09:59 <COURTNEY Montoya Last Filed: 07/10/25 17:37> Labs: Lab Results 07/10/25 07/10/25 07/10/25 Range/Units 09:57 09:59 10:29 WBC 6.9 (4.5-10.0) K/mm3 RBC 4.99 (4.6-6.20) M/mm3 Hgb 15.5 (14.0-18.0) g/dL Hct 45.7 (42.0-52.0) % MCV 91.6 (80-100) fl MCH 31.1 (26-34) pg MCHC 33.9 (32-36) g/dl RDW 12.3 (11.5-14.5) % Plt Count 256 (150-375) k/mm3 MPV 8.6 (7.4-10.4) fl Immature Gran % (Auto) 0.4 (0-0.5) % Neut % (Auto) 70.5 (45.5-73.1) % Lymph % (Auto) 18.5 (18.3-44.2) % Williamson % (Auto) 8.7 H (2.6-8.5) % Eos % (Auto) 1.6 (0-4.4) % Baso % (Auto) 0.3 (0.2-1.2) % Lymph # (Auto) 1.28 (0.9-3.2) K/mm3 Williamson # (Auto) 0.6 (0.1-0.6) K/mm3 Eos # (Auto) 0.1 (0-0.3) K/mm3 Baso # (Auto) 0.0 (0.0-0.1) K/mm3 Abs Immat Gran (auto) 0.03 (0.00-0.031) K/mm3 Absolute Neuts (auto) 4.9 (1.3-6.7) K/mm3 Absolute Nucleated RBC 0.000 (0.0-0.012) K/mm3 Nucleated RBC % 0.0 (0.0-0.2) % D-Dimer (<0.48) ug/mL Sodium 133 L (137-145) mmol/L Potassium 4.5 (3.4-5.0) mmol/L Chloride 101 (98-107) mmol/L Carbon Dioxide 23 (22-30) mmol/L Anion Gap 9 (4-12) mmol/L BUN 15 (9-20) mg/dL Creatinine 0.87 (0.7-1.3) mg/dL Estim Creat Clear Calc 75 ml/min Estimated GFR > 60 (59 - ) Glucose 115 H (65-110) mg/dL POC Capillary Glucose 127 H (65-105) mg/dl Lactic Acid 3.1 H (0.7-2.0) mmol/L Calcium 9.0 (8.4-10.2) mg/dL Total Bilirubin 0.6 (0.2-1.3) mg/dL AST 22 (17-59) U/L ALT 20 (6-50) U/L Alkaline Phosphatase 68 (38-126) U/L Total Creatine Kinase 83 (55-170) U/L Troponin I < 0.012 (0.000-0.034) ng/mL Total Protein 7.0 (6.3-8.2) g/dL Albumin 4.3 (3.5-5.1) g/dL Urine Color Yellow (Yellow) Urine Appearance Clear (Clear) Urine pH 6.0 (5.0-9.0) Ur Specific [place] 1.015 (1.001-1.035) Urine Protein Negative (Negative) mg/dL Urine Glucose (UA) Negative (Negative) mg/dL Urine Ketones Trace H (Negative) mg/dL Ur Blood (Man) Negative (Negative) Urine Nitrate Negative (Negative) Urine Bilirubin Negative (Negative) Urine Urobilinogen 1.0 (<2.0) mg/dL Leukocyte Esterase Rfl Negative (Negative) PADMINI/UL Urine Opiates Screen (Negative) Urine Methadone Screen (Negative) Ur Barbiturates Screen (Negative) Ur Phencyclidine Scrn (Negative) Ur Amphetamine Screen (Negative) U Benzodiazepines Scrn (Negative) Urine Cocaine Screen (Negative) U Cannabinoids Screen (Negative) Ethyl Alcohol < 10 (<10) mg/dL Influenza A (RT-PCR) (Negative) Influenza B (RT-PCR) (Negative) RSV (RT-PCR) (Negative) SARS-CoV-2 RNA (RT-PCR) (Negative) 07/10/25 07/10/25 07/10/25 Range/Units 10:32 10:33 14:01 WBC (4.5-10.0) K/mm3 RBC (4.6-6.20) M/mm3 Hgb (14.0-18.0) g/dL Hct (42.0-52.0) % MCV (80-100) fl MCH (26-34) pg MCHC (32-36) g/dl RDW (11.5-14.5) % Plt Count (150-375) k/mm3 MPV (7.4-10.4) fl Immature Gran % (Auto) (0-0.5) % Neut % (Auto) (45.5-73.1) % Lymph % (Auto) (18.3-44.2) % Williamson % (Auto) (2.6-8.5) % Eos % (Auto) (0-4.4) % Baso % (Auto) (0.2-1.2) % Lymph # (Auto) (0.9-3.2) K/mm3 Williamson # (Auto) (0.1-0.6) K/mm3 Eos # (Auto) (0-0.3) K/mm3 Baso # (Auto) (0.0-0.1) K/mm3 Abs Immat Gran (auto) (0.00-0.031) K/mm3 Absolute Neuts (auto) (1.3-6.7) K/mm3 Absolute Nucleated RBC (0.0-0.012) K/mm3 Nucleated RBC % (0.0-0.2) % D-Dimer < 0.27 (<0.48) ug/mL Sodium (137-145) mmol/L Potassium (3.4-5.0) mmol/L Chloride (98-107) mmol/L Carbon Dioxide (22-30) mmol/L Anion Gap (4-12) mmol/L BUN (9-20) mg/dL Creatinine (0.7-1.3) mg/dL Estim Creat Clear Calc ml/min Estimated GFR (59 - ) Glucose (65-110) mg/dL POC Capillary Glucose (65-105) mg/dl Lactic Acid 1.2 (0.7-2.0) mmol/L Calcium (8.4-10.2) mg/dL Total Bilirubin (0.2-1.3) mg/dL AST (17-59) U/L ALT (6-50) U/L Alkaline Phosphatase (38-126) U/L Total Creatine Kinase (55-170) U/L Troponin I (0.000-0.034) ng/mL Total Protein (6.3-8.2) g/dL Albumin (3.5-5.1) g/dL Urine Color (Yellow) Urine Appearance (Clear) Urine pH (5.0-9.0) Ur Specific [place] (1.001-1.035) Urine Protein (Negative) mg/dL Urine Glucose (UA) (Negative) mg/dL Urine Ketones (Negative) mg/dL Ur Blood (Man) (Negative) Urine Nitrate (Negative) Urine Bilirubin (Negative) Urine Urobilinogen (<2.0) mg/dL Leukocyte Esterase Rfl (Negative) PADMINI/UL Urine Opiates Screen Negative (Negative) Urine Methadone Screen Negative (Negative) Ur Barbiturates Screen Negative (Negative) Ur Phencyclidine Scrn Negative (Negative) Ur Amphetamine Screen Negative (Negative) U Benzodiazepines Scrn Negative (Negative) Urine Cocaine Screen Negative (Negative) U Cannabinoids Screen Negative (Negative) Ethyl Alcohol (<10) mg/dL Influenza A (RT-PCR) Negative (Negative) Influenza B (RT-PCR) Negative (Negative) RSV (RT-PCR) Negative (Negative) SARS-CoV-2 RNA (RT-PCR) Negative (Negative) <Therese Choudhury PA-C - Last Filed: 07/10/25 17:37> Lab Results 07/10/25 07/10/25 07/10/25 Range/Units 09:57 09:59 10:29 WBC 6.9 (4.5-10.0) K/mm3 RBC 4.99 (4.6-6.20) M/mm3 Hgb 15.5 (14.0-18.0) g/dL Hct 45.7 (42.0-52.0) % MCV 91.6 (80-100) fl MCH 31.1 (26-34) pg MCHC 33.9 (32-36) g/dl RDW 12.3 (11.5-14.5) % Plt Count 256 (150-375) k/mm3 MPV 8.6 (7.4-10.4) fl Immature Gran % (Auto) 0.4 (0-0.5) % Neut % (Auto) 70.5 (45.5-73.1) % Lymph % (Auto) 18.5 (18.3-44.2) % Williamson % (Auto) 8.7 H (2.6-8.5) % Eos % (Auto) 1.6 (0-4.4) % Baso % (Auto) 0.3 (0.2-1.2) % Lymph # (Auto) 1.28 (0.9-3.2) K/mm3 Williamson # (Auto) 0.6 (0.1-0.6) K/mm3 Eos # (Auto) 0.1 (0-0.3) K/mm3 Baso # (Auto) 0.0 (0.0-0.1) K/mm3 Abs Immat Gran (auto) 0.03 (0.00-0.031) K/mm3 Absolute Neuts (auto) 4.9 (1.3-6.7) K/mm3 Absolute Nucleated RBC 0.000 (0.0-0.012) K/mm3 Nucleated RBC % 0.0 (0.0-0.2) % D-Dimer (<0.48) ug/mL Sodium 133 L (137-145) mmol/L Potassium 4.5 (3.4-5.0) mmol/L Chloride 101 (98-107) mmol/L Carbon Dioxide 23 (22-30) mmol/L Anion Gap 9 (4-12) mmol/L BUN 15 (9-20) mg/dL Creatinine 0.87 (0.7-1.3) mg/dL Estim Creat Clear Calc 75 ml/min Estimated GFR > 60 (59 - ) Glucose 115 H (65-110) mg/dL POC Capillary Glucose 127 H (65-105) mg/dl Lactic Acid 3.1 H (0.7-2.0) mmol/L Calcium 9.0 (8.4-10.2) mg/dL Total Bilirubin 0.6 (0.2-1.3) mg/dL AST 22 (17-59) U/L ALT 20 (6-50) U/L Alkaline Phosphatase 68 (38-126) U/L Total Creatine Kinase 83 (55-170) U/L Troponin I < 0.012 (0.000-0.034) ng/mL Total Protein 7.0 (6.3-8.2) g/dL Albumin 4.3 (3.5-5.1) g/dL Urine Color Yellow (Yellow) Urine Appearance Clear (Clear) Urine pH 6.0 (5.0-9.0) Ur Specific [place] 1.015 (1.001-1.035) Urine Protein Negative (Negative) mg/dL Urine Glucose (UA) Negative (Negative) mg/dL Urine Ketones Trace H (Negative) mg/dL Ur Blood (Man) Negative (Negative) Urine Nitrate Negative (Negative) Urine Bilirubin Negative (Negative) Urine Urobilinogen 1.0 (<2.0) mg/dL Leukocyte Esterase Rfl Negative (Negative) PADMINI/UL Urine Opiates Screen (Negative) Urine Methadone Screen (Negative) Ur Barbiturates Screen (Negative) Ur Phencyclidine Scrn (Negative) Ur Amphetamine Screen (Negative) U Benzodiazepines Scrn (Negative) Urine Cocaine Screen (Negative) U Cannabinoids Screen (Negative) Ethyl Alcohol < 10 (<10) mg/dL Influenza A (RT-PCR) (Negative) Influenza B (RT-PCR) (Negative) RSV (RT-PCR) (Negative) SARS-CoV-2 RNA (RT-PCR) (Negative) 07/10/25 07/10/25 07/10/25 Range/Units 10:32 10:33 14:01 WBC (4.5-10.0) K/mm3 RBC (4.6-6.20) M/mm3 Hgb (14.0-18.0) g/dL Hct (42.0-52.0) % MCV (80-100) fl MCH (26-34) pg MCHC (32-36) g/dl RDW (11.5-14.5) % Plt Count (150-375) k/mm3 MPV (7.4-10.4) fl Immature Gran % (Auto) (0-0.5) % Neut % (Auto) (45.5-73.1) % Lymph % (Auto) (18.3-44.2) % Williamson % (Auto) (2.6-8.5) % Eos % (Auto) (0-4.4) % Baso % (Auto) (0.2-1.2) % Lymph # (Auto) (0.9-3.2) K/mm3 [place] # (Auto) (0.1-0.6) K/mm3 Eos # (Auto) (0-0.3) K/mm3 Baso # (Auto) (0.0-0.1) K/mm3 Abs Immat Gran (auto) (0.00-0.031) K/mm3 Absolute Neuts (auto) (1.3-6.7) K/mm3 Absolute Nucleated RBC (0.0-0.012) K/mm3 Nucleated RBC % (0.0-0.2) % D-Dimer < 0.27 (<0.48) ug/mL Sodium (137-145) mmol/L Potassium (3.4-5.0) mmol/L Chloride (98-107) mmol/L Carbon Dioxide (22-30) mmol/L Anion Gap (4-12) mmol/L BUN (9-20) mg/dL Creatinine (0.7-1.3) mg/dL Estim Creat Clear Calc ml/min Estimated GFR (59 - ) Glucose (65-110) mg/dL POC Capillary Glucose (65-105) mg/dl Lactic Acid 1.2 (0.7-2.0) mmol/L Calcium (8.4-10.2) mg/dL Total Bilirubin (0.2-1.3) mg/dL AST (17-59) U/L ALT (6-50) U/L Alkaline Phosphatase (38-126) U/L Total Creatine Kinase (55-170) U/L Troponin I (0.000-0.034) ng/mL Total Protein (6.3-8.2) g/dL Albumin (3.5-5.1) g/dL Urine Color (Yellow) Urine Appearance (Clear) Urine pH (5.0-9.0) Ur Specific [place] (1.001-1.035) Urine Protein (Negative) mg/dL Urine Glucose (UA) (Negative) mg/dL Urine Ketones (Negative) mg/dL Ur Blood (Man) (Negative) Urine Nitrate (Negative) Urine Bilirubin (Negative) Urine Urobilinogen (<2.0) mg/dL Leukocyte Esterase Rfl (Negative) PADMINI/UL Urine Opiates Screen Negative (Negative) Urine Methadone Screen Negative (Negative) Ur Barbiturates Screen Negative (Negative) Ur Phencyclidine Scrn Negative (Negative) Ur Amphetamine Screen Negative (Negative) U Benzodiazepines Scrn Negative (Negative) Urine Cocaine Screen Negative (Negative) U Cannabinoids Screen Negative (Negative) Ethyl Alcohol (<10) mg/dL Influenza A (RT-PCR) Negative (Negative) Influenza B (RT-PCR) Negative (Negative) RSV (RT-PCR) Negative (Negative) SARS-CoV-2 RNA (RT-PCR) Negative (Negative) <Bren Goodman MD - Last Filed: 07/10/25 19:36> Imaging Data Radiologist's impression: ITS Impressions Head CT 07/10/25 10:30 IMPRESSION: No acute brain findings. Sinus disease as described. All CT scans at this facility are performed using low dose modulation techniques as appropriate to perform exam including the following: automated exposure control; use of iterative reconstruction technique; adjustment of the mA and/or kV according to patient size (this includes techniques or standardized protocols for targeted exams where dose is matched to indication/reason for exam). Chest X-Ray 07/10/25 10:35 IMPRESSION: 1. Small opacities in the mid and lower lungs which represents atelectasis/scarring or infiltrates. If symptoms persist or worsen, consider a short-term follow-up study or additional imaging for further assessment. <Therese Choudhury PA-C - Last Filed: 07/10/25 17:37> Critical Care Time Critical Care Time Critical Care Time: No <Therese Choudhury PA-C - Last Filed: 07/10/25 17:37> Discharge Plan Discharge Clinical Impression: Acute hypoxemic respiratory failure, Seizure-like activity Pneumonia Qualifiers: Pneumonia type: due to unspecified organism Laterality: bilateral Lung location: lower lobe of lung Qualified Code(s): J18.9 - Pneumonia, unspecified organism <Therese Choudhury PA-C - Last Filed: 07/10/25 17:37> Patient Disposition: Still a Patient <Therese Choudhury PA-C - Last Filed: 07/10/25 17:37> Condition: Stable <Therese Choudhury PA-C - Last Filed: 07/10/25 17:37>
[2025-07-10 10:23] LABS: Alanine Aminotransferase 20 U/L (6-50); Albumin Level 4.3 g/dL (3.5-5.1); Alkaline Phosphatase 68 U/L (38-126); Anion Gap 9 mmol/L (4-12); Aspartate Amino Transferase 22 U/L (17-59); Bilirubin,Total 0.6 mg/dL (0.2-1.3); Blood Urea Nitrogen 15 mg/dL (9-20); Calcium 9.0 mg/dL (8.4-10.2); Carbon Dioxide 23 mmol/L (22-30); Chloride 101 mmol/L (98-107); Creatine Kinase 83 U/L (55-170); Estimated CRCL calculation 75 ml/min; Estimated Glomerular Filt Rate > 60; Glucose 115 mg/dL (65-110); Potassium 4.5 mmol/L (3.4-5.0); Sodium 133 mmol/L (137-145); Total Protein 7.0 g/dL (6.3-8.2)
[2025-07-10 10:32] LABS: Troponin I < 0.012 ng/mL (0.000-0.034)
[2025-07-10 10:47] LABS: Add Urine Microscopic? NO; Appearance Urine Clear (Clear); Glucose Urine UA Negative (Negative); Leukocyte Esterase Ur Negative LEU/UL (Negative); Nitrate Urine Negative (Negative); Specific Grav Ur 1.015 (1.001-1.035)
[2025-07-10] MEDS: SODIUM CHLORIDE 0.9% IV 1,000 ML 999 ML IV CONT (10:51)
[2025-07-10 11:10] LABS: Cannabinoid Screen Urine Negative (Negative)
[2025-07-10 11:23] LABS: Influenza A QL RT-PCR Negative (Negative); Influenza B QL RT-PCR Negative (Negative); RSV RNA, RT-PCR Negative (Negative); SARS-CoV-2 RNA PCR Negative (Negative)
[2025-07-10] MEDS: AZITHROMYCIN IV 500 MG in SODIUM CHLORIDE 0.9% IV 250 ML IVPB (14:23)
[2025-07-10] MEDS: cefTRIAXone 1 GM in SODIUM CHLORIDE 0.9% IV 50 ML 100 ML IVPB (14:23)
--- NOTE | 2025-07-10 18:00 | PM.IMHP ---
H&P: HPI History of Present Illness Date/Time: 07/10/25 18:00 Chief Complaint: Seizure-like Activity Narrative: 70 y/o M with PMH of HTN, HLD, atrial flutters s/p ablation, prediabetes, prostate cancer (2021), and BPH presents here with seizure-like activity. The patient presents here from [facility] office via EMS for further evaluation of seizure-like activity. HPI obtained through patient report, patient's spouse report who spoke with dental office, and EMS report. The patient reports he was at the dentist office for dental work. He was in the chair and the hygienist had just placed the needle in his gumline to numb him with Articaine. She was only able to inject a very small amount when his left arm raised which prompted her to stop injecting. She then removed the needle when the patient started having abnormal muscle movements that appeared seizure-like. High Aguilar reported to EMS and the patient's that the patient seized for around 2-3 minutes. Patient did not have any loss of bowel or bladder during these events. No confusion upon coming to. He reports prior to having the dental work he did not eat but did consume caffeine. No previous history of difficulty with receiving medical care/needle/injections. No previous history of seizure-like activity or syncope. He did report during the ambulance ride he became slightly nauseous which resolved with Zofran. He reports no recollection of events after they stuck the needle in but does remember being in the office and the ambulance ride. Patient additionally reports congestion, rhinorrhea, and a productive cough that has been ongoing for some months. He denies any fever, chills, body aches, vomiting, diarrhea, chest pain, shortness of breath, or palpitations. Initial VS at presentation: 98.4? F, HR 99, R 21, 132/79, and 96% on RA. ED workup showed: WBC 6.9, no anemia, sodium 133, creatinine 0.87 and GFR >60, glucose 115, initial troponin negative, UA showed trace ketones otherwise unremarkable. UDS negative. Viral PCR negative. Head CT showed no acute findings, sinus disease noted (near complete opacification the right maxillary sinus and 1 in the anterior right ethmoids, some degree of mucosal thickening in the nasal cavity). CXR showed small opacities in the mid and lower lung zones which could represent atelectasis/scarring or infiltrates. Review of Systems Review of Systems: All systems reviewed & are unremarkable except as noted in HPI and below PMFSH Past Medical History Medical History HTN (hypertension) Hyperlipidemia LDL goal <100 BPH (benign prostatic hyperplasia) History of atrial flutter s/p ablation 07/2019 Status post radiation therapy Prostate cancer Overweight (BMI 25.0-29.9) Pre-diabetes Shingles about 5 years ago to left upper back, without residual issues Sebaceous cyst Right upper shoulder Surgical History Surgical History S/P colonoscopy History of tonsillectomy S/P ablation of atrial flutter 07/2019 by [facility] Family History Family History Mother Patient's mother is Family history of lung cancer Father Patient's father is Heart attack 40's Heart disease Hypertension Social History Social History Social History: The patient had 2 sons and 1 in a motor vehicle accident. His Mirian Wild is his durable power finance attorney for healthcare. The patient wishes to be a full code. 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 Patient started smoking when he was 12 years old and smoked for about 30 years. Smoking packs per day: 1 Smoking cigarettes per day: 20.0 Years smoked: 20 Smoking pack-years: 20.00 Smoking status: Former smoker Tobacco type: cigarettes Second hand tobacco smoke exposure: Yes Smoking end date: 09/05/90 Alcohol intake: never Alcohol use details: 2-3 drinks per month Substance use: never Substance use type: does not use Lack of Transportation: No Lack of Food: Never True Current Housing: I Have Housing Concerned About Future Housing: No Difficulty Paying Gas/Electric Bills: No Difficulty Paying for Meds: No Currently Unemployed: No Education: High School Diploma/GED Difficulty w/ Childcare or Family Care: No Living arrangements: with family Occupation/Education: retired Gender identity (if verbalized by the patient): Male Spiritual care concerns: No Agree to blood products: Yes Meds Home Medications and Allergies Home Medications ?Medication ?Instructions ?Recorded ?Confirmed ?Type cholecalciferol (vitamin D3) 125 5,000 unit PO DAILY 07/25/19 07/10/25 History mcg (5,000 unit) capsule cyanocobalamin (vitamin B-12) 500 500 mcg PO DAILY 07/25/19 07/10/25 History mcg tablet folic acid 400 mcg tablet 0.4 mg PO DAILY 07/25/19 07/10/25 History thiamine HCl (vitamin B1) 100 mg 100 mg PO DAILY 07/25/19 07/10/25 History tablet aspirin 325 mg tablet 325 mg PO DAILY 10/12/19 07/10/25 History docusate sodium 100 mg capsule 100 mg PO DAILY 01/06/24 07/10/25 History (Colace) diltiazem HCl 120 mg 120 mg PO DAILY #90 caps 12/04/24 07/10/25 Rx capsule,extended release 24 hr (Cardizem CD) tamsulosin 0.4 mg capsule 0.4 mg PO DAILY #90 caps 02/11/25 07/10/25 Rx metoprolol succinate 25 mg See Rx Instructions .Route 04/01/25 07/10/25 Rx tablet,extended release 24 hr .COMPLEX #90 tabs rosuvastatin 5 mg tablet 5 mg PO DAILY #90 tabs 05/30/25 07/10/25 Rx Allergies Allergy/AdvReac Type Severity Reaction Status Date / Time No Known Allergies Allergy Verified 07/10/25 18:22 Vital Signs Vital Signs - 24 hr 07/10/25 09:27 07/10/25 09:35 07/10/25 09:36 Temperature 98.4 F Pulse Rate 99 100 Respiratory Rate 21 H 21 H Blood Pressure 132/79 132/79 Pulse Oximetry 96 91 Oxygen Delivery Room Air Room Air Oxygen Flow Rate 07/10/25 09:36 07/10/25 09:46 07/10/25 10:00 Temperature Pulse Rate 98 93 87 Respiratory Rate 22 H 17 Blood Pressure 150/79 H Pulse Oximetry 88 L 95 Oxygen Delivery Oxygen Flow Rate 07/10/25 10:32 07/10/25 10:33 07/10/25 10:45 Temperature Pulse Rate 82 82 84 Respiratory Rate 22 H 24 H 18 Blood Pressure 134/78 Pulse Oximetry 95 95 96 Oxygen Delivery Oxygen Flow Rate 07/10/25 10:46 07/10/25 11:00 07/10/25 11:15 Temperature Pulse Rate 85 81 83 Respiratory Rate 14 19 17 Blood Pressure 148/78 H Pulse Oximetry 97 97 97 Oxygen Delivery Oxygen Flow Rate 07/10/25 11:30 07/10/25 11:31 07/10/25 12:00 Temperature Pulse Rate 79 80 Respiratory Rate 16 17 Blood Pressure 146/82 H Pulse Oximetry 97 96 96 Oxygen Delivery Nasal Cannula Oxygen Flow Rate 1 07/10/25 13:02 07/10/25 13:03 07/10/25 13:05 Temperature Pulse Rate 82 84 84 Respiratory Rate 18 13 20 Blood Pressure 139/78 139/78 Pulse Oximetry 98 98 98 Oxygen Delivery Oxygen Flow Rate 07/10/25 13:15 07/10/25 13:30 07/10/25 13:45 Temperature Pulse Rate 90 84 86 Respiratory Rate 20 16 16 Blood Pressure Pulse Oximetry 97 98 96 Oxygen Delivery Oxygen Flow Rate 07/10/25 13:46 07/10/25 14:05 07/10/25 14:16 Temperature Pulse Rate 87 83 83 Respiratory Rate 15 17 18 Blood Pressure 146/72 H 153/77 H 150/82 H Pulse Oximetry 94 95 89 L Oxygen Delivery Oxygen Flow Rate 07/10/25 14:17 07/10/25 14:27 07/10/25 15:01 Temperature Pulse Rate 84 95 Respiratory Rate 17 22 H Blood Pressure 138/66 Pulse Oximetry 94 96 95 Oxygen Delivery Oxygen Flow Rate 07/10/25 15:30 07/10/25 15:45 07/10/25 16:00 Temperature Pulse Rate 102 H 90 92 Respiratory Rate 18 14 11 L Blood Pressure Pulse Oximetry 93 93 96 Oxygen Delivery Oxygen Flow Rate 07/10/25 16:15 07/10/25 17:30 Temperature Pulse Rate 92 81 Respiratory Rate 17 18 Blood Pressure 135/78 Pulse Oximetry 95 96 Oxygen Delivery Oxygen Flow Rate Exam Const: General: comfortable and no acute distress Other: , male, nontoxic appearance HENMT: Face/Nose/Sinus: Normal nares present Mouth: Yes moist mucous membranes Other: congestion noted Eyes: General: appearance normal, both eyes and all related structures Sclera: sclerae normal Pupils: Equal, round and reactive pupils present EOM: EOMs intact bilaterally Resp: Effort & Inspection: normal respiratory effort Auscultation: clear to auscultation bilaterally Cardio: Rate: regular rate Rhythm: regular rhythm Other: S1-S2 present without murmur, rub, ectopy GI: Other: Abdomen soft, nondistended, nontender. Normoactive bowel sounds in all quadrants. Skin: General skin exam: normal color and no rashes or lesions noted Wounds: no wounds Neuro: Speech: normal speech Motor exam (neuro): 5/5 motor strength present throughout Sensory Exam: normal sensation Other: A&O x4. No nystagmus noted. No tremor. Extrem: General: normal to inspection Psych: Mental Status: mental status grossly normal Affect: normal affect Other: Good insight and judgment, very pleasant H&P: Results Labs Labs: Short CBC 07/10/25 Range/Units 09:59 WBC 6.9 (4.5-10.0) K/mm3 Hgb 15.5 (14.0-18.0) g/dL Hct 45.7 (42.0-52.0) % Plt Count 256 (150-375) k/mm3 BMP 07/10/25 09:59 Sodium 133 L Potassium 4.5 Chloride 101 Carbon Dioxide 23 BUN 15 Creatinine 0.87 Glucose 115 H Calcium 9.0 Cardiac Enzymes 07/10/25 Range/Units 09:59 Total Creatine Kinase 83 (55-170) U/L Troponin I < 0.012 (0.000-0.034) ng/mL Liver Function 07/10/25 Range/Units 09:59 Total Bilirubin 0.6 (0.2-1.3) mg/dL AST 22 (17-59) U/L ALT 20 (6-50) U/L Alkaline Phosphatase 68 (38-126) U/L Albumin 4.3 (3.5-5.1) g/dL Urine 07/10/25 Range/Units 10:29 Urine Color Yellow (Yellow) Urine Appearance Clear (Clear) Urine pH 6.0 (5.0-9.0) Ur Specific [place] 1.015 (1.001-1.035) Urine Protein Negative (Negative) mg/dL Urine Glucose (UA) Negative (Negative) mg/dL Assessment and Plan Assessment and plan (1) Seizure-like activity: Code(s): R56.9 - Unspecified convulsions Status: Acute Assessment and Plan: Patient was receiving dental care and had just had the needle inserted to begin numbing him for his procedure when his left arm raised and then he proceeded to have seizure-like activity for 2-3 minutes. Hygienist who was performing injection was only witness. No loss of bowel or bladder during episode. No postictal phase/confusion. No previous history of seizure-like activity. Did not eat prior to dental work and had consumed caffeine. New onset seizures verses vasovagal response. In favor of a vasovagal response as he had not eaten, was receiving an injection, and had consumed caffeine prior to event. Patient was also not postictal. Lactic was elevated at 3.1, however he has concurrent pneumonia. To rule out seizure-like activity, will obtain EEG and brain MRI. Neurology has been consulted. Seizure precautions in interim. Awaiting UA. - EEG - brain MRI - neurology consulted - seizure precautions (2) Pneumonia: Qualifiers: Laterality: bilateral Lung location: lower lobe of lung Pneumonia type: due to unspecified organism Qualified Code(s): J18.9 - Pneumonia, unspecified organism Code(s): J18.9 - Pneumonia, unspecified organism Status: Acute Assessment and Plan: Patient reports congestion, rhinorrhea, and productive cough that have been ongoing for months. CXR showed small opacities in the mid and lower lung zones which could represent atelectasis/scarring or infiltrates. At 1 point during his ED stay he was 89% on room air and was placed on 2 L nasal cannula. Has since been titrated to 1 L nasal cannula and is 98%. Will trial patient on room air this evening. Constellation of symptoms and brief oxygen requirement in favor of pneumonia versus atelectasis picture. Patient started on broad-spectrum antibiotics. - viral PCR negative on 07/10 - started on ceftriaxone and azithromycin on 07/10, continued patient - supportive care: Mucinex, Tessalon Perles, Tylenol - encourage IS - monitor oxygen saturation (3) HTN (hypertension): Qualifiers: Hypertension type: primary hypertension Qualified Code(s): I10 - Essential (primary) hypertension Code(s): I10 - Essential (primary) hypertension Status: Chronic Assessment and Plan: - chronic, currently 145/77, stable - continue home medications: Metoprolol - monitor (4) Atrial flutter: Qualifiers: Atrial flutter type: unspecified Qualified Code(s): I48.92 - Unspecified atrial flutter Code(s): I48.92 - Unspecified atrial flutter Status: Chronic Assessment and Plan: History of atrial flutter s/p cardioversion. EKG completed in the ED on 07/10, reviewed and showed sinus rhythm/RBBB and rate 91. - continue diltiazem ER 120 mg daily and metoprolol ER 25 mg daily Plan Diet: Heart healthy GI Prophylaxis: N/a DVT Prophylaxis: SCDs IV fluids: 1 L bolus Lines/Tubes: Peripheral IV Code Status: Full code Quality VTE Prophylaxis VTE prophylaxis: mechanical ordered Hospitalist MIPS Advance Care Plan I have confirmed that the patient's Advanced Care Plan is present, code status is documented, or surrogate decision maker is listed in patient medical record.: Yes Medication Reconciliation I have utilized all available resources to obtain, update and review the patients current medications (includes all prescriptions, OTC, herbals, cannabis, and nutritional supplements).: Yes
--- NOTE | 2025-07-10 18:19 | ADMGEN ---
This patient, Varghese Wild, was admitted to Medical Room 244-. Patient/family oriented to hospital policies and general routines including ID bracelet, bed and alarms, visiting hours, pain management, procedures, bathroom and other care routines, personal items, smoking policy, room service/diet, and visiting hours. Information on how to activate the Rapid Response Team has been discussed. Patient/Family are encouraged to report perceived risks to care and to ask questions if they do not understand what they are told or what they should do.
[2025-07-10] MEDS: guaiFENesin 12 HR 600 MG TABCR PO (20:36)
[2025-07-11] VITALS (13 sets, daily range): BP systolic 127–136; BP diastolic 61–74; PULSE 55–93; RESP 16–17; TEMP 36.5–36.7; O2SAT 95–97
[2025-07-11 05:27] LABS: Hematocrit 41.6 % (42.0-52.0); Hemoglobin 13.8 g/dL (14.0-18.0); Immature Granulocyte Percent A 0.3 % (0-0.5); Lymphocytes Absolute Auto 1.46 K/mm3 (0.9-3.2); Mean Corpuscular HGB Conc 33.2 g/dl (32-36); Mean Corpuscular Hemoglobin 31.1 pg (26-34); Mean Corpuscular Volume 93.7 fl (80-100); Nucleated Red Blood Cells Absolute Auto 0.000 K/mm3 (0.0-0.012); Nucleated Red Blood Cells Perc 0.0 % (0.0-0.2); Platelet Count Result 239 k/mm3 (150-375); Red Blood Count 4.44 M/mm3 (4.6-6.20); White Blood Count 6.1 K/mm3 (4.5-10.0)
[2025-07-11 05:51] LABS: Anion Gap 6 mmol/L (4-12); Blood Urea Nitrogen 17 mg/dL (9-20); Calcium 8.5 mg/dL (8.4-10.2); Carbon Dioxide 28 mmol/L (22-30); Chloride 102 mmol/L (98-107); Estimated CRCL calculation 66 ml/min; Estimated Glomerular Filt Rate > 60; Glucose 99 mg/dL (65-110); Potassium 4.1 mmol/L (3.4-5.0); Sodium 136 mmol/L (137-145)
[2025-07-11] MEDS: CHOLECALCIFEROL (VITAMIN D3) 125 MCG (5,000 UNITS) TABLET PO (08:02)
[2025-07-11] MEDS: guaiFENesin 12 HR 600 MG TABCR PO ×2 (08:03→20:08)
[2025-07-11] MEDS: CYANOCOBALAMIN 500 MCG TABLET PO (08:03)
[2025-07-11] MEDS: DOCUSATE SODIUM 100 MG CAPSULE PO (08:03)
[2025-07-11] MEDS: ROSUVASTATIN 5 MG TABLET PO (08:03)
[2025-07-11] MEDS: TAMSULOSIN HCL 0.4 MG CAPSULE PO (08:03)
[2025-07-11] MEDS: FOLIC ACID 0.4 MG TABLET PO (08:03)
[2025-07-11] MEDS: ASPIRIN 325 MG TABLET PO (08:03)
[2025-07-11] MEDS: THIAMINE HCL 100 MG TABLET PO (08:03)
[2025-07-11] MEDS: METOPROLOL SUCCINATE EXT REL 25 MG TABCR PO (08:05)
[2025-07-11] MEDS: dilTIAZem HCL CD 120 MG CAP.24HR PO (08:05)
--- NOTE | 2025-07-11 08:09 | P.PNIM_ITS ---
Progress Note: A&P Assessment and Plan (1) Seizure-like activity: Code(s): R56.9 - Unspecified convulsions Status: Acute Assessment and Plan: - EEG pending - brain MRI no acute pathology - neurology consulted - seizure precautions (2) Pneumonia: Qualifiers: Laterality: bilateral Lung location: lower lobe of lung Pneumonia type: due to unspecified organism Qualified Code(s): J18.9 - Pneumonia, unspecified organism Code(s): J18.9 - Pneumonia, unspecified organism Status: Acute Assessment and Plan: Pneumonia versus atelectasis - viral PCR negative on 07/10 - started on ceftriaxone and azithromycin on 07/10, continued patient - supportive care: Mucinex, Tessalon Perles, Tylenol - encourage IS - monitor oxygen saturation UA negative for infection (3) HTN (hypertension): Qualifiers: Hypertension type: primary hypertension Qualified Code(s): I10 - Essential (primary) hypertension Code(s): I10 - Essential (primary) hypertension Status: Chronic Assessment and Plan: - chronic, currently 145/77, stable - continue home medications: Metoprolol - monitor (4) Atrial flutter: Qualifiers: Atrial flutter type: unspecified Qualified Code(s): I48.92 - Unspecified atrial flutter Code(s): I48.92 - Unspecified atrial flutter Status: Chronic Assessment and Plan: EKG showed sinus rhythm/RBBB and rate 91. - continue diltiazem ER 120 mg daily and metoprolol ER 25 mg daily Plan Diet: Heart healthy GI Prophylaxis: N/a DVT Prophylaxis: SCDs IV fluids: 1 L bolus Lines/Tubes: Peripheral IV Code Status: Full code Time Spent With Patient Time with patient: Greater than 35 minutes Subjective Date/time seen: 07/11/25 08:09 Interval history: 70 y/o M with PMH of HTN, HLD, atrial flutters s/p ablation, prediabetes, prostate cancer (2021), and BPH presents here with seizure-like activity Patient being treated for pneumonia on Rocephin azithromycin Plan for MRI and EEG today, neurology consulted Patient has no complaints at this time. MRI shows no acute process. Review of Systems Review of Systems: All systems reviewed & are unremarkable except as noted in HPI and below Exam Narrative: General: well appearing, appears stated age. HEENT: normocephalic, atraumatic. Mucous membranes moist. EOMI, PERRLA, bilateral sclera anicteric, no conjunctival injection. Neck supple without JVD, lymphadenopathy, or bruit. Respiratory: clear bilaterally. No rales/rhonic/wheezes. Cardiovascular: Regular rate and rhythm, normal S1-S2. No murmurs, rubs, or clicks. PMI is nondisplaced, capillary refill less than 3 second. Abdomen: Soft, round, no pulsatile masses, nondistended and nontender. No rebound, no guarding. Bowel sounds present to all four quadrants. No high pitch or tinkling sounds, resonant to percussion. Extremities: No cyanosis, clubbing, or edema present. Pulses are palpable 2/2. Active ROM to all four extremities. Neuro: Alert and orientated x 4. PERRLA. Cranial nerves 2-12 intact without focal deficit. Skin: Warm, dry, and intact, without rash, erythema, or lesion. Psych: pleasant, cooperative, normal speech, normal affect, no hallucinations, no dysarthia Objective Data Vital Signs Vital Signs: Vital Signs - 24 hr 07/10/25 09:27 07/10/25 09:35 07/10/25 09:36 Temperature 98.4 F Pulse Rate 99 100 Respiratory Rate 21 H 21 H Blood Pressure 132/79 132/79 Pulse Oximetry 96 91 Oxygen Delivery Room Air Room Air Oxygen Flow Rate 07/10/25 09:36 07/10/25 09:46 07/10/25 10:00 Temperature Pulse Rate 98 93 87 Respiratory Rate 22 H 17 Blood Pressure 150/79 H Pulse Oximetry 88 L 95 Oxygen Delivery Oxygen Flow Rate 07/10/25 10:32 07/10/25 10:33 07/10/25 10:45 Temperature Pulse Rate 82 82 84 Respiratory Rate 22 H 24 H 18 Blood Pressure 134/78 Pulse Oximetry 95 95 96 Oxygen Delivery Oxygen Flow Rate 07/10/25 10:46 07/10/25 11:00 07/10/25 11:15 Temperature Pulse Rate 85 81 83 Respiratory Rate 14 19 17 Blood Pressure 148/78 H Pulse Oximetry 97 97 97 Oxygen Delivery Oxygen Flow Rate 07/10/25 11:30 07/10/25 11:31 07/10/25 12:00 Temperature Pulse Rate 79 80 Respiratory Rate 16 17 Blood Pressure 146/82 H Pulse Oximetry 97 96 96 Oxygen Delivery Nasal Cannula Oxygen Flow Rate 1 07/10/25 13:02 07/10/25 13:03 07/10/25 13:05 Temperature Pulse Rate 82 84 84 Respiratory Rate 18 13 20 Blood Pressure 139/78 139/78 Pulse Oximetry 98 98 98 Oxygen Delivery Oxygen Flow Rate 07/10/25 13:15 07/10/25 13:30 07/10/25 13:45 Temperature Pulse Rate 90 84 86 Respiratory Rate 20 16 16 Blood Pressure Pulse Oximetry 97 98 96 Oxygen Delivery Oxygen Flow Rate 07/10/25 13:46 07/10/25 14:05 07/10/25 14:16 Temperature Pulse Rate 87 83 83 Respiratory Rate 15 17 18 Blood Pressure 146/72 H 153/77 H 150/82 H Pulse Oximetry 94 95 89 L Oxygen Delivery Oxygen Flow Rate 07/10/25 14:17 11/05/25 14:27 07/10/25 15:01 Temperature Pulse Rate 84 95 Respiratory Rate 17 22 H Blood Pressure 138/66 Pulse Oximetry 94 96 95 Oxygen Delivery Oxygen Flow Rate 07/10/25 15:30 07/10/25 15:45 07/10/25 16:00 Temperature Pulse Rate 102 H 90 92 Respiratory Rate 18 14 11 L Blood Pressure Pulse Oximetry 93 93 96 Oxygen Delivery Oxygen Flow Rate 07/10/25 16:15 07/10/25 17:30 07/10/25 18:15 Temperature 98.1 F Pulse Rate 92 81 79 Respiratory Rate 17 18 20 Blood Pressure 135/78 145/77 H Pulse Oximetry 95 96 98 Oxygen Delivery Oxygen Flow Rate 07/10/25 18:47 07/10/25 20:00 07/10/25 20:00 Temperature Pulse Rate 78 Respiratory Rate Blood Pressure Pulse Oximetry Oxygen Delivery Room Air Room Air Oxygen Flow Rate 07/10/25 20:56 07/11/25 00:00 07/11/25 04:00 Temperature 97.8 F Pulse Rate 69 59 L 55 L Respiratory Rate 16 Blood Pressure 120/76 Pulse Oximetry 95 Oxygen Delivery Oxygen Flow Rate 07/11/25 05:28 07/11/25 08:05 Temperature 97.8 F Pulse Rate 66 75 Respiratory Rate 16 Blood Pressure 127/61 Pulse Oximetry 96 Oxygen Delivery Oxygen Flow Rate Intake/Output Intake/Output: Intake & Output 07/08/25 07/09/25 07/10/25 07/11/25 23:59 23:59 23:59 23:59 Intake Total 1300 350 Balance 1300 350 Meds/Results Medications: Active Medications Generic Name Dose Route Start Last Admin Trade Name Freq PRN Reason Stop Dose Admin Acetaminophen 650 mg 07/10/25 14:47 Acetaminophen 325 Mg Tablet PO Q6H PRN Pain Rated 1-3, Fever Aspirin 325 mg 07/11/25 09:00 07/11/25 08:03 Aspirin 325 Mg Tablet PO 325 mg DAILY ALBERTINA Administration Benzonatate 100 mg 07/10/25 14:47 Benzonatate 100 Mg Capsule PO TID PRN Cough Cyanocobalamin 500 mcg 07/11/25 09:00 07/11/25 08:03 Cyanocobalamin 500 Mcg Tablet PO 500 mcg DAILY ALBERTINA Administration Diltiazem HCl 120 mg 07/11/25 09:00 07/11/25 08:05 Diltiazem Hcl Cd 120 Mg Cap.24hr PO 120 mg DAILY ALBERTINA Administration Docusate Sodium 100 mg 07/11/25 09:00 07/11/25 08:03 Docusate Sodium 100 Mg Capsule PO 100 mg DAILY ALBERTINA Administration Folic Acid 0.4 mg 07/11/25 09:00 07/11/25 08:03 Folic Acid 0.4 Mg Tablet PO 0.4 mg DAILY ALBERTINA Administration Guaifenesin 600 mg 07/10/25 21:00 07/11/25 08:03 Guaifenesin 12 Hr 600 Mg Tabcr PO 600 mg Q12HR ALBERTINA Administration Ceftriaxone Sodium 1 gm/ 50 mls @ 100 mls/hr 07/11/25 13:00 Sodium Chloride IVPB Q24H ALBERTINA Azithromycin 500 mg/ Sodium 250 mls @ 250 mls/hr 07/11/25 14:00 Chloride IVPB 07/14/25 14:59 Q24H ALBERTINA Metoprolol Succinate 25 mg 07/11/25 09:00 07/11/25 08:05 Metoprolol Succinate Ext Rel 25 Mg Tabcr PO 25 mg DAILY ALBERTINA Administration Rosuvastatin Calcium 5 mg 07/11/25 09:00 07/11/25 08:03 Rosuvastatin 5 Mg Tablet PO 5 mg DAILY ALBERTINA Administration Tamsulosin HCl 0.4 mg 07/11/25 09:00 07/11/25 08:03 Tamsulosin Hcl 0.4 Mg Capsule PO 0.4 mg DAILY ALBERTINA Administration Thiamine HCl 100 mg 07/11/25 09:00 07/11/25 08:03 Thiamine Hcl 100 Mg Tablet PO 100 mg DAILY ALBERTINA Administration Vitamin D 125 mcg 07/11/25 09:00 07/11/25 08:02 Cholecalciferol (Vitamin D3) 125 Mcg (5,000 Units) Tablet PO 125 mcg DAILY ALBERTINA Administration Radiology Results: ITS Impressions Head CT 07/10/25 10:30 IMPRESSION: No acute brain findings. Sinus disease as described. All CT scans at this facility are performed using low dose modulation techniques as appropriate to perform exam including the following: automated exposure control; use of iterative reconstruction technique; adjustment of the mA and/or kV according to patient size (this includes techniques or standardized protocols for targeted exams where dose is matched to indication/reason for exam). Chest X-Ray 07/10/25 10:35 IMPRESSION: 1. Small opacities in the mid and lower lungs which represents atelectasis/scarring or infiltrates. If symptoms persist or worsen, consider a short-term follow-up study or additional imaging for further assessment. Labs Labs: Laboratory Results - last 24 hr 07/10/25 07/10/25 07/10/25 09:57 09:59 10:29 WBC 6.9 RBC 4.99 Hgb 15.5 Hct 45.7 MCV 91.6 MCH 31.1 MCHC 33.9 RDW 12.3 Plt Count 256 MPV 8.6 Immature Gran % (Auto) 0.4 Neut % (Auto) 70.5 Lymph % (Auto) 18.5 [place] % (Auto) 8.7 H Eos % (Auto) 1.6 Baso % (Auto) 0.3 Lymph # (Auto) 1.28 [place] # (Auto) 0.6 Eos # (Auto) 0.1 Baso # (Auto) 0.0 Abs Immat Gran (auto) 0.03 Absolute Neuts (auto) 4.9 Absolute Nucleated RBC 0.000 Nucleated RBC % 0.0 D-Dimer Sodium 133 L Potassium 4.5 Chloride 101 Carbon Dioxide 23 Anion Gap 9 BUN 15 Creatinine 0.87 Estim Creat Clear Calc 75 Estimated GFR > 60 Glucose 115 H POC Capillary Glucose 127 H Lactic Acid 3.1 H Calcium 9.0 Total Bilirubin 0.6 AST 22 ALT 20 Alkaline Phosphatase 68 Total Creatine Kinase 83 Troponin I < 0.012 Total Protein 7.0 Albumin 4.3 Urine Color Yellow Urine Appearance Clear Urine pH 6.0 Ur Specific [place] 1.015 Urine Protein Negative Urine Glucose (UA) Negative Urine Ketones Trace H Ur Blood (Man) Negative Urine Nitrate Negative Urine Bilirubin Negative Urine Urobilinogen 1.0 Leukocyte Esterase Rfl Negative Urine Opiates Screen Urine Methadone Screen Ur Barbiturates Screen Ur Phencyclidine Scrn Ur Amphetamine Screen U Benzodiazepines Scrn Urine Cocaine Screen U Cannabinoids Screen Ethyl Alcohol < 10 Influenza A (RT-PCR) Influenza B (RT-PCR) RSV (RT-PCR) SARS-CoV-2 RNA (RT-PCR) 07/10/25 07/10/25 07/10/25 10:32 10:33 14:01 WBC RBC Hgb Hct MCV MCH MCHC RDW Plt Count MPV Immature Gran % (Auto) Neut % (Auto) Lymph % (Auto) [place] % (Auto) Eos % (Auto) Baso % (Auto) Lymph # (Auto) [place] # (Auto) Eos # (Auto) Baso # (Auto) Abs Immat Gran (auto) Absolute Neuts (auto) Absolute Nucleated RBC Nucleated RBC % D-Dimer < 0.27 Sodium Potassium Chloride Carbon Dioxide Anion Gap BUN Creatinine Estim Creat Clear Calc Estimated GFR Glucose POC Capillary Glucose Lactic Acid 1.2 Calcium Total Bilirubin AST ALT Alkaline Phosphatase Total Creatine Kinase Troponin I Total Protein Albumin Urine Color Urine Appearance Urine pH Ur Specific [place] Urine Protein Urine Glucose (UA) Urine Ketones Ur Blood (Man) Urine Nitrate Urine Bilirubin Urine Urobilinogen Leukocyte Esterase Rfl Urine Opiates Screen Negative Urine Methadone Screen Negative Ur Barbiturates Screen Negative Ur Phencyclidine Scrn Negative Ur Amphetamine Screen Negative U Benzodiazepines Scrn Negative Urine Cocaine Screen Negative U Cannabinoids Screen Negative Ethyl Alcohol Influenza A (RT-PCR) Negative Influenza B (RT-PCR) Negative RSV (RT-PCR) Negative SARS-CoV-2 RNA (RT-PCR) Negative 07/11/25 04:31 WBC 6.1 RBC 4.44 L Hgb 13.8 L Hct 41.6 L MCV 93.7 MCH 31.1 MCHC 33.2 RDW 12.4 Plt Count 239 MPV 9.1 Immature Gran % (Auto) 0.3 Neut % (Auto) 61.7 Lymph % (Auto) 23.9 [place] % (Auto) 11.3 H Eos % (Auto) 2.5 Baso % (Auto) 0.3 Lymph # (Auto) 1.46 [place] # (Auto) 0.7 H Eos # (Auto) 0.2 Baso # (Auto) 0.0 Abs Immat Gran (auto) 0.02 Absolute Neuts (auto) 3.8 Absolute Nucleated RBC 0.000 Nucleated RBC % 0.0 D-Dimer Sodium 136 L Potassium 4.1 Chloride 102 Carbon Dioxide 28 Anion Gap 6 BUN 17 Creatinine 0.99 Estim Creat Clear Calc 66 Estimated GFR > 60 Glucose 99 POC Capillary Glucose Lactic Acid Calcium 8.5 Total Bilirubin AST ALT Alkaline Phosphatase Total Creatine Kinase Troponin I Total Protein Albumin Urine Color Urine Appearance Urine pH Ur Specific [place] Urine Protein Urine Glucose (UA) Urine Ketones Ur Blood (Man) Urine Nitrate Urine Bilirubin Urine Urobilinogen Leukocyte Esterase Rfl Urine Opiates Screen Urine Methadone Screen Ur Barbiturates Screen Ur Phencyclidine Scrn Ur Amphetamine Screen U Benzodiazepines Scrn Urine Cocaine Screen U Cannabinoids Screen Ethyl Alcohol Influenza A (RT-PCR) Influenza B (RT-PCR) RSV (RT-PCR) SARS-CoV-2 RNA (RT-PCR) Quality VTE Prophylaxis VTE prophylaxis: mechanical ordered
--- OUTSIDE RECORDS SUMMARY | 2025-07-11 09:40 | XMS_ITS | Clinical Summary ---
Author Organization [facility] Address Counts include [address] beds at the [facility] [place] [address] Care Team Providers Care Jet Piercer Operator Name Role Phone Jonathan Matamoros MD Primary Care Provider [phone] Rajesh Gonzalez MD Unavailable [phone] Rowdy Smiley MD Unavailable [phone] Keaton Yoo MD Unavailable Unavailable Allergies No [...] on file Legal Sex Male 3:10 PM [employer] Gender Identity Not on file Sexual Orientation Not on file Last Filed Vital Signs Vital Sign Reading Time Taken Comments Blood Pressure 139/80 08/06/2020 10:00 AM [employer] Pulse 76 08/06/2020 10:00 AM [employer] Temperature - - Respiratory Rate 16 08/06/2020 10:00 AM [employer] Oxygen Saturation 98% 08/06/2020 10:00 AM [employer] Inhaled Oxygen Concentration - - Weight 90.4 kg (199 lb 6.4 oz) 08/06/2020 10:00 AM [employer] Height 180.3 cm (5' 11) 08/06/2020 10:00 AM [employer] TE[employer] Body Mass Index 27.81 08/06/2020 10:00 AM [employer] TE[employer] Plan of Treatment Health Maintenance Due Date Last Done Comments Colorectal Cancer Screening Colonoscopy (10 Years) 1955 Hepatitis C 1974 DTaP, Tdap and Td Vaccines ( 1 - Tdap) 1975 Pneumococcal Vaccine: 50+ Ye ars (1 of 1 - PCV) 2006 Zoster Vaccines (1 of 2) 2006 COVID-19 Vaccine (1 - 2024-2 6 season) 2025 Influenza Adult (#1) 2025 RSV Immunization or 60+ Years (1 - 1-dose 75+ series) 2031 Hepatitis A Vaccines Aged Out No long er eligible based on patient's age to complete this topic Meningococcal B Vaccine Aged Out No l onger eligible based on patient's age to complete this topic Meningococcal Vaccine Aged Out No brodie ale eligible based on patient's age to complete this topic RSV Immunizations Under 20 Months Aged Out No longer eligible based on patient's age to complete this topic Insurance [facility] Care Teams Jet Piercer Operator Relationship Specialty Start Date End Date Jonathan Matamoros MD PCP - General FAMILY PRACTICE 08/06/20 Rajesh Gonzalez MD [address] [place] [phone] Consulting Physician UROLOGY 08/06/20 Rowdy Smiley MD [address] [place] [place], [place] [id number] Consulting Physician CARDIOVASCULAR DISEASE 08/06/20 Keaton Yoo MD [address] [place] [address] CARDIOLOGY 08/06/20
--- OUTSIDE RECORDS SUMMARY | 2025-07-11 09:40 | XMS_ITS | Data Portability ---
Author Organization [place] - [facility] OFFICE Address [address] [place] [id number] Care Team Providers Care Product Management Intern Name Role Phone CARRIE LI Primary Care Provider Assessment Encounter Date Assessment Date Assessment LastModified by Organization Details LastModified Time 02/16/2022 02/16/2022 Patient Examined by FER Berger, Also interviewed /Documentation reviewed and approved by supervising physician osorio Not available 02/16/2022 09:36:56 09/22/2023 09/22/2023 Patient Examined by FER Berger, Also Documentation reviewed and approved by supervising physician osorio Not available 09/22/2023 14:54:22 Plan of Treatment Reminders Order Date Submit Date Provider Last Modified By Organization Details Last Modified Time Details Appointments ESTABLI SHED PATIENT DETAILE D 2025 04:00P M Rowdy Camacho i, MD Not available Not available Not available Lab None recorde d. Referral None recorde d. Procedures None recorde d. Surgeries None recorde d. Imaging None recorde d. Medication Orders rosuvas tatin [address] [facility] [address] [place], [address], 09/22/2023 14:59:20 diltiaz em CD 120 mg capsule ,extend ed release [address] [facility] [address] [place], [address], 04/28/2022 16:30:50 Crestor 5 mg tablet 2021 022 [email or web address] [facility] [address] [place], [address], 04/28/2022 16:30:19 Patient TargetsNo targets recorded. Patient Instructions Encounter Date Encounter Id Patient Instructions Last Modified By Organization Details Last Modified Time 02/16/2022 [id number] high cholesterol: care instructions eyassin Not available 02/16/2022 09:40:04 learning about high cholesterol eyassin Not available 02/16/2022 09:40:04 Exercise advised Low cholesterol diet advised Low sodium diet advised. eyassin Not available 02/16/2022 09:41:26 08/17/2022 [id number] Exercise advised Low cholesterol diet advised Low sodium diet advised. [email or web address] Not available 08/17/2022 09:24:43 09/22/2023 [id number] Exercise advised Low cholesterol diet advised Low sodium diet advised. eyassin Not available 09/22/2023 14:58:33 04/14/2024 [id number] Exercise advised Low cholesterol diet advised Low sodium diet advised. [email or web address] Not available 04/14/2024 09:11:58 Reason for Referral None Reported. Results Created Date Observation Date Name Description Value Unit Range Abnormal Flag Note LastModifiedBy Organization Detail LastModifiedTime 02/25/2002/16/2022 elect rocar diogr am No observ ation record ed. [email or web address] Not Available 2021 10:32:16 08/18/20 22 08/17/2022 elect rocar diogr am No observ ation record ed. [email or web address] Not Available 2021 11:17:54 09/05/1909/01/2022 , [facility] ardio gram No observ ation record ed. [facility] [address], [place], [address], 09/06/2022 15:15:13 09/27/19 24 09/22/2023 elect rocar diogr am No observ ation record ed. [email or web address] Not Available 2023 10:36:40 11/28/19 24 11/15/2023 exerc ise stres s test No observ ation record ed. [email or web address] Not Available 2023 10:19:35 05/21/20 25 05/16/2025 [place] olmosgr am No observ ation record ed. [email or web address] Not Available 2024 12:14:14 06/03/20 25 05/22/2025 US, echoc ardio gram No observ ation record ed. [email or web address] Not Available 2024 10:00:43 Result Notes None recorded. Problems Name Problem SNOMED Code Status Onset Date Resolution Date Notes Provider Name and Address Organization Details Recorded Time Atrial fibrillation 23358942 Active 2018 [place], [place] - [facility] 2 15:37:08 Deep venous thrombosis 786573390 Active 2018 [place], [place] - [facility] 2 15:37:24 Obstructive sleep apnea syndrome 31342005 Active 2018 Arnav [place], [place] - [facility] 2 15:37:17 Vitamin D deficiency 83033825 Active 2018 Not Available [facility] 1 18:44:52 Allergic rhinitis 40590493 Active 2018 Not Available [facility] 18:44:52 Cardiac arrhythmia 951526361 Active 2018 Not Available [facility] 1 18:44:52 Atrial flutter 4872158 Active 2018 Arnav pretty [place] - [facility] 2 15:37:12 Prediabetes 216615779 Active 2018 Not Available [facility] 1 18:44:52 Atypical chest pain 756763892 Active 2019 Not Available [facility] 18:44:52 Carcinoma of prostate 637833669 Active 2021 Ar[place], [place] - [facility] 2 13:15:00 Hyperlipidemi a 97274309 Active 2021 Arnav [place] - [facility] 2 13:15:18 Notes:Vitamin B12 deficiency Some problems listed in Document: #[id number] could not be added to this patient's chart. Please review this document and add these problems to the patient's chart manually as needed. Problem Notes None recorded. Procedures Surgical History Date Name Laterality Status Provider Name and Address Organization Details Recorded Time tonsillectomy completed Arnav Prince [facility] 08/30/2019 12:48:47 Imaging Results None recorded. Procedure Notes None recorded. Medical Equipment None Reported. Allergies No known drug allergies Medications Name Sig Start Date Stop Date Status Note LastModified by Organization Details LastModified Time amoxicill in 500 mg capsule TAKE 1 CAPSULE BY MOUTH EVERY 8 HOURS 09/22 completed Not Available Not Available Not Available doxycycli ne hyclate 100 mg capsule 08/17 completed pt no longer takes 02/16/22 nj Not Available Not Available Not Available clindamyc in HCl 300 mg capsule TAKE 1 CAPSULE BY MOUTH THREE TIMES DAILY UNTIL GONE 08/17 completed pt no longer takes 02/16/22 nj Not Available Not Available Not Available aspirin 325 mg tablet Take 1 tablet by mouth once daily active Not Available Not Available No t Available alprazola m 1 mg tablet 08/17 completed pt no longer takes 02/16/22 nj Not Available Not Available Not Available benzonata te 200 mg capsule TAKE 1 CAPSULE BY MOUTH THREE TIMES DAILY NEEDED FOR COUGH 08/17 completed Not Available Not Available Not Available hydrocodo ne 5 mg-acetam inophen 325 mg tablet TAKE 1 TABLET BY MOUTH EVERY 4 TO 6 HOURS NEEDED FOR PAIN 09/22 completed Not Available Not Available Not Available prednison e 20 mg tablet TAKE 2 TABLETS BY MOUTH ONCE DAILY FOR 5 DAYS 08/17 completed pt no longer takes 02/16/22 nj Not Available Not Available Not Available penicilli n V potassium 500 mg tablet TAKE 1 TABLET BY MOUTH 4 TIMES DAILY UNTIL GONE 09/22 completed Not Available Not Available Not Available sulfameth oxazole 800 mg-trimet hoprim 160 mg tablet TAKE 1 TABLET BY MOUTH EVERY 12 HOURS 08/17 completed pt no longer takes 02/16/22 nj Not Available Not Available Not Available tamsulosi n 0.4 mg capsule TAKE 1 CAPSULE BY MOUTH ONCE DAILY IN THE MORNING active Not Available Not Available No t Available cephalexi n 500 mg capsule TAKE 1 CAPSULE BY MOUTH EVERY 8 HOURS 04/14 completed Not Available Not Available Not Available diltiazem CD 120 mg capsule,e xtended release 24 hr TAKE 1 CAPSULE BY MOUTH ONCE DAILY active Not Available Not Available No t Available metoprolo l succinate ER 25 mg tablet,ex tended release 24 hr TAKE 1 TABLET BY MOUTH ONCE DAILY active Not Available Not Available No t Available levofloxa maxwell 500 mg tablet TAKE 1 TABLET BY MOUTH ONCE DAILY. ONE TABLET MORNING OF PROCEDUR E AND MORNING AFTER PROCEDUR E. 08/17 completed Not Available Not Available Not Available albuterol sulfate HFA 90 mcg/actua tion aerosol inhaler INHALE 2 PUFFS BY MOUTH EVERY 4 HOURS NEEDED FOR WHEEZING FOR SHORTNES S OF BREATH 09/22 completed Not Available Not Available Not Available finasteri de 5 mg tablet TAKE 1 TABLET BY MOUTH ONCE DAILY 08/22 completed pt no longer taking 08/22/20 SP Not Available Not Available Not Available rosuvasta tin 5 mg tablet Take 1 tablet by mouth once daily 2024 active Not Available Not Available Not Avai lable nitrofura ntoin monohydra te/macroc rystals 100 mg capsule 08/22 completed pt not taking 01/15/20 Not Available Not Available Not Available vit B12-vit B6-vit B1-fluori de 08/22 completed pt not taking 01/15/20 Not Available Not Available Not Available folic acid 1 qd 09/21 completed Not Available Not Available Not Available docusate calcium 1 prn 09/21 completed Not Available Not Available Not Available Cartia XT 120/24 10/27 completed Not Available Not Available Not Available Vitamin B1 10/27 completed Not Available Not Available Not Available Vitamin B12 10/27 completed Not Available Not Available Not Available B12 500 mcg 1 qd 09/21 completed Not Available Not Available Not Available Vitamin D3 125 mcg (5,000 unit) tablet Take by oral route. active Not Available Not Available No t Available Xarelto 20 mg tablet Take 1 tablet every day by oral route. 08/22 completed Pt was to have stopped Xarelto and started full dose ASA looks like ASA was started. pt not taking 01/15/20 Not Available Not Available Not Available vit D3-folic acid-B2-B 6-B12 08/31 completed Not Available Not Available Not Available B1 0.5 mg-B2 0.6 mg-B3 7 mg-B6 0.7 mg-B12-de xpan-zinc -miguel oral elixir Take by oral route. 08/22 completed pt not taking 01/15/20 Not Available Not Available Not Available Probichew 08/22 completed pt not taking 01/15/20 Not Available Not Available Not Available Vitals Date Recorded Body height Body mass index (BMI) Body weight Heart rate Oxygen saturation Oxygen saturation in Arterial blood by Pulse oximetry Systolic And Diastolic Provider Name and Address Organization Details Last Updated DateTime 4 180.34 cm 29 kg/m2 26736.2 1 g 70 /min 93 % 93 % 135/76 mm[Hg] Velia Bruce [facility] [place] 4 14:30:15 Date Recorded Body height Body mass index (BMI) Body weight Heart rate Oxygen saturation Oxygen saturation in Arterial blood by Pulse oximetry Systolic And Diastolic Provider Name and Address Organization Details Last Updated DateTime 2 180.34 cm 27.8 kg/m2 39510.8 8 g 75 /min 96 % 96 % 142/80 mm[Hg] HALLIE CASTILLO [facility] [place] 2 09:11:55 Date Recorded Body height Body mass index (BMI) Body weight Heart rate Oxygen saturation Oxygen saturation in Arterial blood by Pulse oximetry Systolic And Diastolic Provider Name and Address Organization Details Last Updated DateTime 4 180.34 cm 28.6 kg/m2 21829.4 4 g 65 /min 96 % 96 % 126/80 mm[Hg] Lucila Jones [facility] [place] 4 08:53:21 Date Recorded Body weight Oxygen saturation Oxygen saturation in Arterial blood by Pulse oximetry Heart rate Systolic And Diastolic Provider Name and Address Organization Details Last Updated DateTime 5 90391.6 6 g 97 % 97 % 67 /min 132/62 mm[Hg] Lucila Jones [facility] [place] 5 17:00:54 Date Recorded Body height Body mass index (BMI) Body weight Heart rate Respiratory rate Oxygen saturation Oxygen saturation in Arterial blood by Pulse oximetry Systolic And Diastolic Provider Name and Address Organization Details Last Updated DateTime 2 180.34 cm 29 kg/m2 22583.2 1 g 82 /min 16 /min 97 % 97 % 122/70 mm[Hg] Chung Low [facility] 2 09:15:29 Social History Question Answer Notes LastModified by [employer] Details LastModified Time Tobacco Smoking Status Former Smoker quit smoking 20 years ago Not Available [employer] 07/08/2020 03:30:40 Which Illicit Or Recreational Drugs Have You Used? None [id number] Information not available 07/08/2020 Live Alone Or With Others? With Others With Family Information not available 08/30/2019 What Was The Date Of Your Most Recent Tobacco Screening? 07/16/2019 [id number] Information not available 07/08/2020 How Much Tobacco Do You Smoke? 1 PPD [id number] Information not available 07/08/2020 How Many Years Have You Smoked Tobacco? 30 [id number] Information not available 07/08/2020 Sex: Unknown Functional Status Question Answer Note LastModified by [employer] Details LastModified Time What is your level of alcohol consumption? Moderate 5 drink per week [id number] Information not available 07/08/2020 Do you or have you ever used smokeless tobacco? Former smokeless tobacco user [id number] Information not available 07/08/2020 What is your occupation? 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 Information not available 08/30/2019 Do you or have you ever used e-cigarettes or vape? Never used electronic cigarettes [id number] Information not available 07/08/2020 Mental Status None recorded. Family History Relationship Description Onset Age of this Age Resolved Age Notes LastModified by Organization Details LastModified Time Father Heart disease [email or web address] Not available 2018 12:48:30 Father Myocardial infarction hmesto Not available 08/30 12:49:13 Paternal Grandfather Heart disease hmesto Not available 2018 12:48:30 Mother Malignant neoplasm of lung hmesto Not available 2018 12:49:07 Son Son motor veicle accide nt hmesto Not available 08/30/2019 12:49:59 Medical History Condition Response Atrial Fibrillation Y Arrhythmia Y Deep Vein Thrombosis Y Sleep Apnea Y Past Encounters Encounter ID Performer Location Encounter Start Date Encounter Closed Date Diagnosis/Indication Diagnosis SNOMED-CT Code Diagnosis ICD10 Code Diagnosis IMO Codes Diagnosis Note [id number] Rowdy Smiley MD [place] [facility] [place] [address] 08/31/2019 11:33:49 09/02/2019 19:58:13 Atrial flutter 3940136 I48.92 Patient had ablation on 07/23/19. patient is SR today.Marta ent continues with xarelto 20 Treadmill Myoview Stress test, has high Deford Risk score. Has Known CAD, or CAD risk equivalent . To look for any ischemia. encouraged to decrease cups of caffeine coffee Obstructiv e sleep apnea syndrome 80282474 G47.33 Patient states that his PCP is wanting to set him up for home sleep studynot using a CPAP Atypical chest pain 1025 68496 R07.89 Treadmill Myoview Stress test, has high Deford Risk score. Has Known CAD, or CAD risk equivalent . To look for any ischemia. [id number] Rowdy Smiley MD [place] [facility] [place] [address] 09/21/2019 09:42:08 11/26/2019 10:34:15 Atrial flutter 6801677 I48.92 Patient had ablation on 07/23/19. Ok to stop the xarelto 20 and start full dose ASA. 09/12/19 Negative stress test, Normal LV systolic function, LVEF 65%, Below average exercise tolerance. Encouraged to decrease caffeine intake. Obstructiv e sleep apnea syndrome 75489334 G47.33 Patient states that his PCP is wanting to set him up for home sleep studynot using a CPAP [id number] Rowdy Smiley MD [place] [facility] [place] [address] 10/23/2019 10:50:25 11/30/2019 10:21:46 Atrial flutter 3673306 I48.92 Patient had ablation on 07/23/19. Ok to stop the xarelto 20 and start full dose ASA. 09/12/19 Negative stress test, Normal LV systolic function, LVEF 65%, Below average exercise tolerance. encouraged to decrease cups of caffeine coffee Obstructiv e sleep apnea syndrome 70774989 G47.33 Patient states that his PCP is wanting to set him up for home sleep studynot using a CPAP [id number] Rowdy Smiley MD [place] [facility] [address] [place] [address] 01/15/2020 12:40:53 01/15/2020 13:20:13 Atrial flutter 4016220 I48.92 Patient had ablation on 07/23/19. No recurrence of symptoms.O n full dose ASA now. 09/12/19 Negative stress test, Normal LV systolic function, LVEF 65%, Below average exercise tolerance. Obstructiv e sleep apnea syndrome 05307771 G47.33 Patient states that his PCP is wanting to set him up for home sleep studynot using a CPAP [id number] Rowdy Smiley MD [place] [facility] [address] [place] [address] 08/22/2020 09:43:44 08/22/2020 11:14:09 Atrial flutter 4224162 I48.92 s/p ablation 07/23/2019 in NSR 08/22/2020 on full dose ASA Echo 07/23/2019 : The LV ejection fraction is normal. The LV is normal size. Ejection fraction = 60-65%. RV size is normal. No left atrial mass or thrombus visualized . TDM 09/12/2019 : Negative stress test. Normal LV systolic function. LVEF 65%. Below average exercise tolerance. [id number] Rowdy Smiley MD [place] [facility] [address] [place] [address] 02/20/2021 08:51:05 02/20/2021 09:40:09 Atrial flutter 7808845 I48.92 s/p ablation 07/23/2019 in NSR 02/21/20on full dose ASARemains on metoprolol and diltiazem Echo 07/23/2019 : The LV ejection fraction is normal. The LV is normal size. Ejection fraction = 60-65%. RV size is normal. No left atrial mass or thrombus visualized . TDM 09/12/2019 : Negative stress test. Normal LV systolic function. LVEF 65%. Below average exercise tolerance. Hyperlipidemia 50563219 E78.5 LDL 125Patient would like to attempt diet and exercise to begin with, noting that he has been less active since quarantine and has followed a poor diet. Notes that he recently started exercising again and watching his diet. Will check FLP in three months of diet and exercise; [place]. [id number] Rowdy Smiley MD [place] [facility] [address] [place] [address] 08/18/2021 08:51:25 08/18/2021 09:41:52 Atrial flutter 5185661 I48.92 Doing well , will check blood cholestero l today otherwise not change. s/p ablation 07/23/2019 in NSR 02/21/20on full dose ASARemains on metoprolol and diltiazem Echo 07/23/2019 : The LV ejection fraction is normal. The LV is normal size. Ejection fraction = 60-65%. RV size is normal. No left atrial mass or thrombus visualized . TDM 09/12/2019 : Negative stress test. Normal LV systolic function. LVEF 65%. Below average exercise tolerance. Hyperlipidemia 32444687 E78.5 LDL 125 last visit will check today if still high will start low dose of statin. Patient would like to attempt diet and exercise to begin with, noting that he has been less active since quarantine and has followed a poor diet. Notes that he recently started exercising again and watching his diet. Will check FLP in three months of diet and exercise; script given. [id number] Rowdy Smiley MD [place] [facility] [address] [place] [address] 02/16/2022 08:53:49 02/16/2022 09:43:43 Atrial flutter 5647824 I48.92 Doing well , will start low dose of crestor and recheck lipid in 6 months s/p ablation 07/23/2019 in NSR 02/21/20on full dose ASARemains on metoprolol and diltiazem Echo 07/23/2019 : The LV ejection fraction is normal. The LV is normal size. Ejection fraction = 60-65%. RV size is normal. No left atrial mass or thrombus visualized . TDM 09/12/2019 : Negative stress test. Normal LV systolic function. LVEF 65%. Below average exercise tolerance. Hyperlipidemia 74687086 E78.5 Doing well , will start low dose of crestor and recheck lipid in 6 months start crestor 5 mg daily Carcinoma of prostate 25 9106794 C61 new diagnosis 02/2022he is starting radiation next week [id number] Rowdy Smiley MD [place] [facility] [address] [place] [address] 08/17/2022 08:59:52 08/17/2022 09:27:18 Atrial flutter 4826726 I48.92 Doing well , will start low dose of crestor and recheck lipid in 6 months s/p ablation 07/23/2019 in NSR 02/21/20 full dose ASARemains on metoprolol and diltiazem Obtain echo to evaluate for structural /functiona l disease. Hyperlipidemia 26734942 E78.5 Doing well , will start low dose of crestor and recheck lipid in 6 months start crestor 5 mg daily Carcinoma of prostate 25 9246404 C61 new diagnosis 02/2022 [id number] Rowdy Smiley MD [place] [facility] [place] [address] 09/22/2023 14:23:07 09/22/2023 15:08:27 Atrial flutter 4959922 I48.92 s/p ablation 07/23/2019 in NSR 02/21/20 full dose ASARemains on metoprolol and diltiazem US, echocardio gramECHO 09/01/22:L V chamber size is normal,the re is normal global systolic function and contractil ity,LVEF is 55-60%. Hyperlipidemia 66141332 E78.5 LDL was 62 done on tinue with crestor 5 mg daily Carcinoma of prostate 25 7015596 C61 new diagnosis 02/2022 Atrial fibrillation 4943 6004 I48.91 NSR [id number] Rowdy Smiley MD [place] [facility] [address] [place] [address] 04/14/2024 08:45:34 04/14/2024 09:13:56 Atrial flutter 2239115 I48.92 s/p ablation 07/23/2019 in NSR 02/21/20 full dose ASARemains on metoprolol and diltiazem US, echocardio gramECHO 09/01/22:L V chamber size is normal,the re is normal global systolic function and contractil ity,LVEF is 55-60%. Hyperlipidemia 98472371 E78.5 LDL was 62 done 3con tinue with crestor 5 mg daily Carcinoma of prostate 25 0064139 C61 new diagnosis 02/2022 Atrial fibrillation 4943 6004 I48.91 NSR [id number] Rowdy Smiley MD [place] [facility] [address] [place] [address] 05/16/2025 16:18:49 05/16/2025 17:19:57 Atrial flutter 2052871 I48.92 s/p ablation 07/23/2019 in NSR 02/21/20on full dose ASARemains on metoprolol and diltiazem Obtain echo to evaluate for structural /functiona l disease. Hyperlipidemia 70815530 E78.5 LDL was 62 done 3con tinue with crestor 5 mg daily Carcinoma of prostate 25 8557798 C61 new diagnosis 02/2022 Atrial fibrillation 4943 6004 I48.91 NSR now Health Concerns Section Related Observation LastModified by Organization Detai ls LastModified Time None Recorded Concern Status LastModified by Organization Details LastModified Time None Recorded Advance Directives Directive None Recorded Payers Insurance Date Sequence Insurance Name Policy Number Policy Devine Covered Member ID Devine Member ID Guarantor Name 05/16/2025 1 [employer] (MEDICARE REPLACEMENT/AD VANTAGE - HMO) [id number] Varghese Wild [id number] Varghese Wild 08/18/2021 1 [facility] [id number] [facility] [place] [id number] Varghese Wild 05/16/2025 1 [facility] (MEDICARE REPLACEMENT HMO) [id number] Varghese Wild [id number] Varghese Wild 05/16/2025 1 [employer] (HMO) [id number] Varghese Wild [id number] Varghese Wild 05/31/2025 1 [place] Varghese Wild [id number] Varghese Wild 05/18/2025 2 [facility] (MEDICARE SUPPLEMENT) Varghese Wild [id number] Varghese Wild Notes Date Note Type Note Provider Name and Address Organization Details Recorded Time 02/16/2022 text/html 02/16/12CC : Cardiac follow up a fib66 years-old Male with h/o Atrial fibrillation, Obstructive sleep apnea is here for follow up. He was last seen in the clinic on 08/18/21 , since then he is doing well except he recently diagnosed with prostate cancer and will start radiation next week. He denied chest pain and dyspnea on exertion. His last LDL was 132 done 09/2021. Pt dose not takes any statins. He denies ER visits and hospitalizations since he was last seen. Today reports:Denies chest pain.Denies shortness of breath at rest. Has mild dyspnea on exertion.No orthopnea. No PNDs.Denies heart palpitations.Denies dizziness. Denies syncope or near syncope.No ankle or leg edema.No major bleeding events.No reported side effects from medications. Taking medications as prescribed with no missed doses.Denies snoring, daytime somnolence and AM headache.*Last LDL was 124 done on 03/11/21 .Pt dose not takes any statins. 09/14/21 CMP: GL 103 BUN 18 CR 0.91 NA 141 K 4.6 CL 103 ALK 67 AST 14 ALT LIPID: CHOL 214 TRIG 130 HDL CHOL 59 LDL CHOL 132 CK 67 Previously:*Had atrial flutter ( s/p ablation 07-16-19 on Xarelto), and DELIA is here for 6 month follow up. He gain 10 pounds over the last 6 month and report eating more candy lately. I advise weight loss and healthy diet. Last LDL was 124 done on 03/11/21 .Pt dose not takes any statin . We will do blood work again to see improvement if not will start him in low dose statin. *Neg stress test 09/12/19. He is active, walks and golfs for exercise. Had one episode of palpitations, HR 68. Reports lightheadedness over past week, also with sinus congestion. He was in [facility] in 07/16/19 because of Atrial flutter with rapid ventricular response. S/P ablation 07-24-[address] Yoo with [facility]: 07-16-19 The left ventricular ejection fraction is normal. The left ventricle is normal in size.Ejection Fraction = 60-65%. Right atrial size is normal. No left atrial mass or thrombus visualized.Results from this visit, or from the past:lipid panel, blood :CPK 74,TC 206,TG 94,LDL 125,HDL 64.CMP, serum or plasma :Na 139,K 4.9,Cl 101,CO2 26,GLU 97,BUN 16,Cr 0.9,AST 14,ALT 8.10/14/19 BMP: NA 138, K 3.9, CL 105, CO2 23, GLU 99, BUN 16, CR 0.80 10/14/19 CBC: WBC 12.8, HGB 13.0, HCT 39.5, PLT 279 08/23/19 CBC: - WBC:7.7, HGB:15.3, HCT:485.3, PLT:303. 10/23/19 EKG: NSR. WNL EKG 08/31/19:Normal sinus rhythm within normal limits. 10/13/19 EKG: Sinus tachycardia. Borderline R wave progression, anterior leads. Baseline artifact - V4- V6. Abnormal EKG. EKG 08/31/19:Normal sinus rhythm within normal limits. 10/12/19 Renal US: Left renal lesion of concern corresponds to a 2.0 cm anechoic cyst. Otherwise normal kidneys without hydronephrosis. 09/12/19 TDM: Negative stress test. Normal LV systolic function. LVEF 65%. Below average exercise tolerance. Had TTE done in 07/23/19 showed Normal left ventricular systolic function , dilated left atrium but no intracardial thrombus left atrial appendage is clear. 07/23/19 Echo- The LV ejection fraction is normal. The LV is normal size. Ejection fraction=60-65%. RVsize is normal. No left atrial mass or thrombus visualized. Had ECHO done in 07/16/19 showed LVSF is low normal, estimated EF is 50%. There is mild mitral valve regurgitation. No pulmonary HTN, estimated pulmonary arterial systolic pressure is 35 mmHg. Mildly dilated inferior vena cava with <50% collapse upon inspiration consistent with elevated RA pressure. LV chamber dimension is normal. 09/12/19 TDM: Negative stress test. Normal LV systolic function. LVEF 65%. Below average exercise tolerance. Rowdy Smiley MD [facility] [place], [address], [facility] 04/28/2022 16:30:48 08/17/2022 text/html 08/17/22CC : Cardiac follow up67 years-old Male with h/o hyperlipidemia, Atrial fibrillation, Obstructive sleep apnea is here for 6 month follow up. He was last seen in the clinic on 01/16/22, since then he is doing wellHe denies ER visits and hospitalizations since he was last seen. Denies chest pain.Denies shortness of breath at rest. Has mild dyspnea on exertion.No orthopnea. No PNDs.Denies heart palpitations.Denies dizziness. Denies syncope or near syncope.No ankle or leg edema.No major bleeding events.No reported side effects from medications. Taking medications as prescribed with no missed doses.Denies snoring, daytime somnolence and AM headache.*Last LDL was 132 done on 09/13/21.Pt dose not takes any statins. He recently diagnosed with prostate cancer *Had atrial flutter ( s/p ablation 07-16-19 on Xarelto), and DELIA is here for 6 month follow up. *Had negative stress test on 09/12/19 He is active, walks and golfs for exercise. Had one episode of palpitations, HR 68. Reports light headedness over past week, also with sinus congestion. He was in [facility] in 07/16/19 because of Atrial flutter with rapid ventricular response. S/P ablation 07-24-[address] Yoo with TASHA TASHA: 07-16-19 The left ventricular ejection fraction is normal. The left ventricle is normal in size.Ejection Fraction = 60-65%. Right atrial size is normal. No left atrial mass or thrombus visualized.Results from this visit, or from the past:lipid panel, blood :CPK 74,TC 206,TG 94,LDL 125,HDL 64.CMP, serum or plasma :Na 139,K 4.9,Cl 101,CO2 26,GLU 97,BUN 16,Cr 0.9,AST 14,ALT 8.10/14/19 BMP: NA 138, K 3.9, CL 105, CO2 23, GLU 99, BUN 16, CR 0.80 10/14/19 CBC: WBC 12.8, HGB 13.0, HCT 39.5, PLT 279 08/23/19 CBC: - WBC:7.7, HGB:15.3, HCT:485.3, PLT:303. 2 EKG: NSR. WNL EKG 08/31/19:Normal sinus rhythm within normal limits. 10/13/19 EKG: Sinus tachycardia. Borderline R wave progression, anterior leads. Baseline artifact - V4- V6. Abnormal EKG. EKG 08/31/19:Normal sinus rhythm within normal limits. 10/12/19 Renal US: Left renal lesion of concern corresponds to a 2.0 cm anechoic cyst. Otherwise normal kidneys without hydronephrosis. 09/12/19 TDM: Negative stress test. Normal LV systolic function. LVEF 65%. Below average exercise tolerance. Had TTE done in 07/23/19 showed Normal left ventricular systolic function , dilated left atrium but no intracardial thrombus left atrial appendage is clear. 07/23/19 Echo- The LV ejection fraction is normal. The LV is normal size. Ejection fraction=60-65%. RVsize is normal. No left atrial mass or thrombus visualized. Had ECHO done in 07/16/19 showed LVSF is low normal, estimated EF is 50%. There is mild mitral valve regurgitation. No pulmonary HTN, estimated pulmonary arterial systolic pressure is 35 mmHg. Mildly dilated inferior vena cava with <50% collapse upon inspiration consistent with elevated RA pressure. LV chamber dimension is normal. 09/12/19 TDM: Negative stress test. Normal LV systolic function. LVEF 65%. Below average exercise tolerance. Rowdy Smiley MD [address] [place], [address], [place] - [facility] 08/17/2022 09:25:01 09/22/2023 text/html 09/22/23CC : Cardiac follow up dyspnea on [id number] years-old Male with h/o hyperlipidemia, Atrial fibrillation, is here for 1 year follow up with ECHO results. He was last seen in the clinic on 08/17/22, since then he is doing well. He denied chest pain but his EKG showed some changes. LDL was done 03/27 and he is taking crestor 5 mg daily.He denies ER visits and hospitalizations since he was last seen. Denies chest pain. no ccDenies shortness of breath at rest. Has mild dyspnea on exertion.No orthopnea. No PNDs.Denies heart palpitations.Denies dizziness. Denies syncope or near syncope.No ankle or leg edema.No major bleeding events.No reported side effects from medications. Taking medications as prescribed with no missed doses.Denies snoring, daytime somnolence and AM headache.*Last LDL was 132 done on 09/13/21.Pt takes rosuvastatin 5 mg daily. Previously:He recently diagnosed with prostate cancer *Had atrial flutter ( s/p ablation 07-16-19 on Xarelto), and DELIA is here for 6 month follow up. *Had negative stress test on 09/12/19 He is active, walks and golfs for exercise. Had one episode of palpitations, HR 68. Reports light headedness over past week, also with sinus congestion. He was in [facility] in 07/16/19 because of Atrial flutter with rapid ventricular response. S/P ablation 07-24-[address] Yoo with TASHA TASHA: 07-16-19 The left ventricular ejection fraction is normal. The left ventricle is normal in size.Ejection Fraction = 60-65%. Right atrial size is normal. No left atrial mass or thrombus visualized.Results from this visit, or from the past:lipid panel, blood :CPK 74,TC 206,TG 94,LDL 125,HDL 64.CMP, serum or plasma :Na 139,K 4.9,Cl 101,CO2 26,GLU 97,BUN 16,Cr 0.9,AST 14,ALT 8.10/14/19 BMP: NA 138, K 3.9, CL 105, CO2 23, GLU 99, BUN 16, CR 0.80 10/14/19 CBC: WBC 12.8, HGB 13.0, HCT 39.5, PLT 279 08/23/19 CBC: - WBC:7.7, HGB:15.3, HCT:485.3, PLT:303. 2 EKG: NSR. WNL EKG 08/31/19:Normal sinus rhythm within normal limits. 10/13/19 EKG: Sinus tachycardia. Borderline R wave progression, anterior leads. Baseline artifact - V4- V6. Abnormal EKG. EKG 08/31/19:Normal sinus rhythm within normal limits. 10/12/19 Renal US: Left renal lesion of concern corresponds to a 2.0 cm anechoic cyst. Otherwise normal kidneys without hydronephrosis. 09/12/19 TDM: Negative stress test. Normal LV systolic function. LVEF 65%. Below average exercise tolerance. Had TTE done in 07/23/19 showed Normal left ventricular systolic function , dilated left atrium but no intracardial thrombus left atrial appendage is clear. 07/23/19 Echo- The LV ejection fraction is normal. The LV is normal size. Ejection fraction=60-65%. RVsize is normal. No left atrial mass or thrombus visualized. Had ECHO done in 07/16/19 showed LVSF is low normal, estimated EF is 50%. There is mild mitral valve regurgitation. No pulmonary HTN, estimated pulmonary arterial systolic pressure is 35 mmHg. Mildly dilated inferior vena cava with <50% collapse upon inspiration consistent with elevated RA pressure. LV chamber dimension is normal. 09/12/19 TDM: Negative stress test. Normal LV systolic function. LVEF 65%. Below average exercise tolerance. STEPHANIE HICKEY [place], [place] - [facility] 09/22/2023 14:59:15 04/14/2024 text/html 04/14/24CC : Cardiac follow up68 years-old Male with h/o hyperlipidemia, Atrial fibrillation, is here for 1 year follow up with stress test results. He was last seen in the clinic on 09/22/23, since then he is doing well, staying activeHe denies ER visits and hospitalizations since he was last seen. Denies chest pain.Denies shortness of breath at rest. Has mild dyspnea on exertion.No orthopnea. No PNDs.Denies heart palpitations.Denies dizziness. Denies syncope or near syncope.No ankle or leg edema.No major bleeding events.No reported side effects from medications. Taking medications as prescribed with no missed doses.Denies snoring, daytime somnolence and AM headache.*Last LDL was 77 done on 07/03/23.Pt takes rosuvastatin 5 mg. *Had Negative stress test on 11/15/23 with Normal LV systolic function. Exercise tolerance: Average. LVEF: 75%. Previously:He recently diagnosed with prostate cancer *Had atrial flutter ( s/p ablation 07-16-19 on Xarelto), and DELIA is here for 6 month follow up. He was in [facility] in 07/16/19 because of Atrial flutter with rapid ventricular response. S/P ablation 07-24-[address] Yoo with [facility] TAS[facility]: 07-16-19 The left ventricular ejection fraction is normal. The left ventricle is normal in size.Ejection Fraction = 60-65%. Right atrial size is normal. No left atrial mass or thrombus visualized.Results from this visit, or from the past:lipid panel, blood :CPK 74,TC 206,TG 94,LDL 125,HDL 64.CMP, serum or plasma :Na 139,K 4.9,Cl 101,CO2 26,GLU 97,BUN 16,Cr 0.9,AST 14,ALT 8.10/14/19 BMP: NA 138, K 3.9, CL 105, CO2 23, GLU 99, BUN 16, CR 0.80 10/14/19 CBC: WBC 12.8, HGB 13.0, HCT 39.5, PLT 279 08/23/19 CBC: - WBC:7.7, HGB:15.3, HCT:485.3, PLT:303. 10/23/19 EKG: NSR. WNL EKG 08/31/19:Normal sinus rhythm within normal limits. 10/13/19 EKG: Sinus tachycardia. Borderline R wave progression, anterior leads. Baseline artifact - V4- V6. Abnormal EKG. EKG 08/31/19:Normal sinus rhythm within normal limits. 10/12/19 Renal US: Left renal lesion of concern corresponds to a 2.0 cm anechoic cyst. Otherwise normal kidneys without hydronephrosis. 09/12/19 TDM: Negative stress test. Normal LV systolic function. LVEF 65%. Below average exercise tolerance. Had TTE done in 07/23/19 showed Normal left ventricular systolic function , dilated left atrium but no intracardial thrombus left atrial appendage is clear. 07/23/19 Echo- The LV ejection fraction is normal. The LV is normal size. Ejection fraction=60-65%. RVsize is normal. No left atrial mass or thrombus visualized. Had ECHO done in 07/16/19 showed LVSF is low normal, estimated EF is 50%. There is mild mitral valve regurgitation. No pulmonary HTN, estimated pulmonary arterial systolic pressure is 35 mmHg. Mildly dilated inferior vena cava with <50% collapse upon inspiration consistent with elevated RA pressure. LV chamber dimension is normal. 09/12/19 TDM: Negative stress test. Normal LV systolic function. LVEF 65%. Below average exercise tolerance. Rowdy Smiley MD [address] [place], [address], [facility] 04/14/2024 09:12:12 05/16/2025 text/html 05/16/25CC : Cardiac follow up, dyspnea on [id number] years-old Male with h/o hyperlipidemia, Atrial fibrillation, is here for 1 year follow up. He was last seen in the clinic on 04/14/24, since then he is doing wellHe denies ER visits and hospitalizations since he was last seen. Denies chest pain.Denies shortness of breath at rest. Has mild dyspnea on exertion.No orthopnea. No PNDs.Denies heart palpitations.Denies dizziness. Denies syncope or near syncope.No ankle or leg edema.No major bleeding events.No reported side effects from medications. Taking medications as prescribed with no missed doses.Denies snoring, daytime somnolence and AM headache.*Last LDL was 77 done on 07/04/23.Pt takes rosuvastatin 5 mg. Previously:*Had Negative stress test on 11/15/23 with Normal LV systolic function. Exercise tolerance: Average. LVEF: 75%. He recently diagnosed with prostate cancer *Had atrial flutter ( s/p ablation 07-16-19 on Xarelto), and DELIA is here for 6 month follow up. He was in [facility] in 07/16/19 because of Atrial flutter with rapid ventricular response. S/P ablation 07-24-[address] Yoo with [facility] TAS[facility]: 07-16-19 The left ventricular ejection fraction is normal. The left ventricle is normal in size.Ejection Fraction = 60-65%. Right atrial size is normal. No left atrial mass or thrombus visualized.Results from this visit, or from the past:lipid panel, blood [id number]:CPK 74,TC 206,TG 94,LDL 125,HDL 64.CMP, serum or plasma :Na 139,K 4.9,Cl 101,CO2 26,GLU 97,BUN 16,Cr 0.9,AST 14,ALT 8.10/14/19 BMP: NA 138, K 3.9, CL 105, CO2 23, GLU 99, BUN 16, CR 0.80 10/14/19 CBC: WBC 12.8, HGB 13.0, HCT 39.5, PLT 279 08/23/19 CBC: - WBC:7.7, HGB:15.3, HCT:485.3, PLT:303. 10/23/19 EKG: NSR. WNL EKG 08/31/19:Normal sinus rhythm within normal limits. 10/13/19 EKG: Sinus tachycardia. Borderline R wave progression, anterior leads. Baseline artifact - V4- V6. Abnormal EKG. EKG 08/31/19:Normal sinus rhythm within normal limits. 10/12/19 Renal US: Left renal lesion of concern corresponds to a 2.0 cm anechoic cyst. Otherwise normal kidneys without hydronephrosis. 09/12/19 TDM: Negative stress test. Normal LV systolic function. LVEF 65%. Below average exercise tolerance. Had TTE done in 07/23/19 showed Normal left ventricular systolic function , dilated left atrium but no intracardial thrombus left atrial appendage is clear. 07/23/19 Echo- The LV ejection fraction is normal. The LV is normal size. Ejection fraction=60-65%. RVsize is normal. No left atrial mass or thrombus visualized. Had ECHO done in 07/16/19 showed LVSF is low normal, estimated EF is 50%. There is mild mitral valve regurgitation. No pulmonary HTN, estimated pulmonary arterial systolic pressure is 35 mmHg. Mildly dilated inferior vena cava with <50% collapse upon inspiration consistent with elevated RA pressure. LV chamber dimension is normal. 09/12/19 TDM: Negative stress test. Normal LV systolic function. LVEF 65%. Below average exercise tolerance. Rowdy Smiley MD [address] [place], [address], [place] - [facility] 05/16/2025 17:16:17
--- OUTSIDE RECORDS SUMMARY | 2025-07-11 09:40 | XMS_ITS | Encounter Summary ---
Author Organization [facility] Address [address] [place] [address] Care Team Providers Care Courtesy Driver Name Role Phone Jonathan Matamoros MD Primary Care Provider [phone] Rajesh Gonzalez MD Unavailable [phone] Rowdy Smiley MD Unavailable [phone] Keaton Yoo MD Unavailable Unavailable Encounter Details Date Type Department Care Team (Late st Contact Info) Description 08/06/2020 Prep for Procedure [place] Pre-Admission Testing [facility] [place] [address] Rajesh Gonzalez MD [address] [place] [id number] Social History Tobacco Use Types Packs/Day Years Used Date Smoking Tobacco: Former Cigarettes 1 15 1 10/07/1984 - 08/06/2000 Smokeless Tobacco: Never Alcohol Use Standard Drinks/Week Comments Not Currently 0 (1 standard drink = 0.6 oz pur e alcohol) Sex and Gender Information Value Date Recorded Sex Assigned at Not on file Legal Sex Male 3:10 PM PROPELLER ENGINEER Gender Identity Not on file Sexual Orientation Not on file COVID-19 Exposure Response Date Recorded In the last month, have you been in contact with someone who was confirmed or suspected to have Coronavirus / COVID-19? No / Unsure 08/06/2020 10:11 AM PROPELLER ENGINEER documented as of this encounter Plan of Treatment Not on file documented as of this encounter Results * PRE-SURGICAL/PRE-PROCEDURE CORONAVIRUS (COVID 19) (08/11/2020 9:02 AM PROPELLER ENGINEER) CORONAVIRUS SARS COV 2 PCR (RESP) NOT DETECTED NOT DETECTED 08/12/2020 9:57 PM PROPELLER ENGINEER [facility] Comment: A Not Detected (negative) test result [...] providers and patients using the following websites: https://www.Quantcast.NullPointer/home/Covid-19/HCP/[facility]/fact- sheet.html https://www.Quantcast.NullPointer/home/Covid-19/Patients/ [facility]/fact-sheet.html This test has been authorized by the FDA under an Emergency Use Authorization (EUA) for use by authorized laboratories. Due to the current public health emergency, [facility] is receiving a high volume of samples [...] about COVID-19 can be found at the [facility] website: www.Consumer Agent Portal (CAP).com/Covid19. Test performed at [facility] [address] [place] [address] Director: CATHERINE SPEARS DO,MPH FIRST TEST YES 08/11/2020 10:23 AM PROPELLER ENGINEER [facility] EMPLOYED IN HEALTHCARE NO 08/11/2020 10:23 AM PROPELLER ENGINEER [facility] SYMPTOMATIC DEFINED BY CDC NO 08/11/2020 10:23 AM PROPELLER ENGINEER [facility] DATE OF SYMPTOM ONSET NO 08/11/2020 10:45 AM [facility] HOSPITALIZATION STATUS NO 08/11/2020 10:23 AM PROPELLER ENGINEER [facility] PATIENT IN ICU NO 08/11/2020 10:23 AM PROPELLER ENGINEER [facility] RESIDENT OF [facility] NO 08/11/2020 10:23 AM PROPELLER ENGINEER [facility] NO 08/11/2020 10:45 AM [facility] PATIENT'S RACE WHITE OR 08/11/2020 10:23 AM [facility] ETHNICITY NONHISPANIC 08/11/2020 10:23 AM [facility] SOURCE (QST) NASOPHARYNGEAL SWAB 08/11/2020 10:23 AM [facility] NASOPHARYNGEAL SWAB / Unknown 08/11/2020 9:02 AM PROPELLER ENGINEER us Rajesh Gonzalez MD MICROBIOLOGY - GENERAL JOSIE MERINO Final Result [facility] [address] [place] [address], [facility] [address] [place] [address], documented in this encounter Visit Diagnoses Diagnosis Preop examination- Primary Preoperative examination, unspecified documented in this encounter Additional Health Concerns Infection Onset Date Last Indicated Resolved Time COVID-19 Rule Out 08/11/2020 08/11/2020 08/12/2020 9:57 PM PROPELLER ENGINEER documented as of this encounter Care Teams Courtesy Driver Relationship Specialty Start Date End Date Jonathan Matamoros MD PCP - General FAMILY PRACTICE 08/06/20 Rajesh Gonzalez MD [address] [place] [id number] Consulting Physician UROLOGY 08/06/20 Rowdy Smiley MD [address] [place] [address] Consulting Physician CARDIOVASCULAR DISEASE 08/06/20 Keaton Yoo MD [address] [place] [address] CARDIOLOGY 08/06/20 documented as of this encounter
--- OUTSIDE RECORDS SUMMARY | 2025-07-11 09:40 | XMS_ITS | Clinical Summary ---
Author Organization [facility] [facility] [address] [place] [address] Care Team Providers Care Data Integration Architect Name Role Phone Jnoathan Matamoros MD Primary Care Provider [phone] Jonathan Matamoros MD Unavailable [phone] Allergies No known active allergies Medications cholecalciferol [...] workup. Assessment & Plan (09/13/2019 2:30 PM CHILD MONITOR): Typical. Successfully ablated mid July. No indication for antiarrhythmics repeat EP study center Paroxysmal atrial fibrillation 09/13/2019 Assessment & Plan (03/12/2020 8:42 AM CDT): No episodes current Марина. Chads score 0. No further treatment. Continue Toprol Assessment & Plan (09/13/2019 2:31 PM CHILD MONITOR): About 1/3 of patients with flutter ablation will have PAF. Episodes are extremely aerobic rare well tolerated would not recommend PVI. Anticoagulation management encounter 09/13/2019 Assessment & Plan (03/12/2020 8:42 AM CDT): Agree with discontinuation given Daniel score 0 Assessment & Plan (09/13/2019 2:31 PM CHILD MONITOR): Discussed with patient. Annual risk of stroke [...] on file Legal Sex Male 5:34 PM CHILD MONITOR Gender Identity Not on file Sexual Orientation Not on file Last Filed Vital Signs Vital Sign Reading Time Taken Comments Blood Pressure 159/80 08/30/2021 5:09 PM CHILD MONITOR Pulse 79 08/30/2021 5:09 PM CHILD MONITOR Temperature 36.9 C (98.5 F) 08/30/2021 5:09 PM CHILD MONITOR Respiratory Rate 20 08/30/2021 5:09 PM CHILD MONITOR Oxygen Saturation 95% 08/30/2021 5:09 PM CHILD MONITOR Inhaled Oxygen Concentration - - Weight 105.2 kg (232 lb) 08/30/2021 5:09 PM CHILD MONITOR Height 177.8 cm (5' 10) 08/30/2021 5:09 PM CHILD MONITOR Body Mass Index 33.29 08/30/2021 5:09 PM CHILD MONITOR Plan of Treatment Not on file Insurance [employer] Care Teams Data Integration Architect Relationship Specialty Start Date End Date Jonathan Matamoros MD PCP - General 07/19/19 Jonathan Matamoros MD Family Medicine 07/19/19
[2025-07-11] MEDS: cefTRIAXone 1 GM in SODIUM CHLORIDE 0.9% IV 50 ML 100 ML IVPB (13:30)
[2025-07-11] MEDS: AZITHROMYCIN IV 500 MG in SODIUM CHLORIDE 0.9% IV 250 ML IVPB (13:59)
--- NOTE | 2025-07-11 16:52 | P.CONNEU_ITS ---
Assessment and Plan Assessment and plan (1) Seizure-like activity: Code(s): R56.9 - Unspecified convulsions Status: Acute Assessment and Plan: EEG is pending however MRI of the brain was performed which did not show any significant abnormal findings. Mild white matter changes were observed. There was evidence for maxillary sinusitis on the right side. (2) Vasovagal syncope: Code(s): R55 - Syncope and collapse Status: Acute Assessment and Plan: Patient did not have any tongue biting or incontinence of urine or any drowsiness or abnormal behavior after the spell. Although these are not evidence for this being not a seizure but that presentation may be from vasovagal syncope. Further investigations and progress. (3) Atrial flutter: Qualifiers: Atrial flutter type: unspecified Qualified Code(s): I48.92 - Unspecified atrial flutter Code(s): I48.92 - Unspecified atrial flutter Status: Chronic Assessment and Plan: patient cardiac ablation done for this in the past. (4) Sinusitis: Code(s): J32.9 - Chronic sinusitis, unspecified Status: Acute Plan An echocardiogram and EEG are pending. I have also order carotid Doppler studyHe is also on cardiac monitoring. He may follow-up with primary care provider however, I Shall be glad to see him office if necessary. previous LDL was 67 the patient on Rosuvastatin 5 mg a day. Consult date: 07/11/25 HPI: Varghese Wild is a 70 year old male Presented to the hospital with history that he was having anesthesia for dental procedure and suddenly his left hand went up and a he had some jerking of the body and apparently was unresponsive for a period of time. EMS was called was brought to the hospital. He did not have any tongue biting or incontinence of urine. He was not confused or sleepy. In the ambulance ride he remembers being sweaty and they had to turn some cool air for him. He has history of atrial flutter for which she had ablation done years ago. 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 His is also present the time of the evaluation. Initially a CT scan of brain was performed which did not show any abnormalities. MRI of the brain as per been performed which shows mild chronic microvascular ischemic changes however no acute abnormalities. Complete opacification of right maxillary sinus was noted Review of Systems 2 Review of Systems: All systems reviewed & are unremarkable except as noted in HPI and below PMFSH Past Medical History Medical History (Updated 07/11/25 @ 16:56 by Angélica Fleming MD) Vasovagal syncope HTN (hypertension) Hyperlipidemia LDL goal <100 BPH (benign prostatic hyperplasia) History of atrial flutter s/p ablation 07/2019 Status post radiation therapy Prostate cancer Overweight (BMI 25.0-29.9) Pre-diabetes Shingles about 5 years ago to left upper back, without residual issues Sebaceous cyst Right upper shoulder Surgical History Surgical History S/P colonoscopy History of tonsillectomy S/P ablation of atrial flutter 07/2019 by [facility] Family History Family History Mother Patient's mother is Family history of lung cancer Father Patient's father is Heart attack 40's Heart disease Hypertension Social History Social History Social History: The patient had 2 sons and 1 in a motor vehicle accident. His Mirian Wild is his durable power attorney recruiter for healthcare. The patient wishes to be a full code. 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 Patient started smoking when he was 12 years old and smoked for about 30 years. Smoking packs per day: 1 Smoking cigarettes per day: 20.0 Years smoked: 20 Smoking pack-years: 20.00 Smoking status: Former smoker Tobacco type: cigarettes Second hand tobacco smoke exposure: Yes Smoking end date: 09/05/90 Alcohol intake: never Alcohol use details: 2-3 drinks per month Substance use: never Substance use type: does not use Lack of Transportation: No Lack of Food: Never True Current Housing: I Have Housing Concerned About Future Housing: No Difficulty Paying Gas/Electric Bills: No Difficulty Paying for Meds: No Currently Unemployed: No Education: High School Diploma/GED Difficulty w/ Childcare or Family Care: No Living arrangements: with family Occupation/Education: retired Gender identity (if verbalized by the patient): Male Spiritual care concerns: No Agree to blood products: Yes Meds Home Medications and Allergies Home Medications ?Medication ?Instructions ?Recorded ?Confirmed ?Type cholecalciferol (vitamin D3) 125 5,000 unit PO DAILY 1 09/24/18 07/10/25 History mcg (5,000 unit) capsule cyanocobalamin (vitamin B-12) 500 500 mcg PO DAILY 07/10/25 History mcg tablet folic acid 400 mcg tablet 0.4 mg PO DAILY 07/25/1901/27 History thiamine HCl (vitamin B1) 100 mg 100 mg PO DAILY 07/2507/10/25 History tablet aspirin 325 mg tablet 325 mg PO DAILY 10/12/1901/27 History docusate sodium 100 mg capsule 100 mg PO DAILY 4 07/10/25 History (Colace) diltiazem HCl 120 mg 120 mg PO DAILY #90 caps 09/2907/10/25 Rx capsule,extended release 24 hr (Cardizem CD) tamsulosin 0.4 mg capsule 0.4 mg PO DAILY #90 caps 05/3007/10/25 Rx metoprolol succinate 25 mg See Rx Instructions .Route 04/01/25 07/10/25 Rx tablet,extended release 24 hr .COMPLEX #90 tabs rosuvastatin 5 mg tablet 5 mg PO DAILY #90 tabs 05/3007/10/25 Rx Allergies Allergy/AdvReac Type Severity Reaction Status Date / Time No Known Allergies Allergy Verified 07/10/25 18:22 Vital Signs Vital Signs - 24 hr 07/10/25 17:30 07/10/25 18:15 07/10/25 18:47 Temperature 98.1 F Pulse Rate 81 79 Respiratory Rate 18 20 Blood Pressure 135/78 145/77 H Pulse Oximetry 96 98 Oxygen Delivery Room Air 07/10/25 20:00 07/10/25 20:00 07/10/25 20:56 Temperature 97.8 F Pulse Rate 78 69 Respiratory Rate 16 Blood Pressure 120/76 Pulse Oximetry 95 Oxygen Delivery Room Air 07/11/25 00:00 07/11/25 04:00 07/11/25 05:28 Temperature 97.8 F Pulse Rate 59 L 55 L 66 Respiratory Rate 16 Blood Pressure 127/61 Pulse Oximetry 96 Oxygen Delivery 07/11/25 08:00 07/11/25 08:00 07/11/25 08:03 Temperature 97.7 F Pulse Rate 68 81 Respiratory Rate 16 Blood Pressure 128/64 Pulse Oximetry 96 Oxygen Delivery Room Air 07/11/25 08:05 07/11/25 12:00 07/11/25 12:34 Temperature 97.7 F Pulse Rate 75 68 63 Respiratory Rate 17 Blood Pressure 130/62 Pulse Oximetry 97 Oxygen Delivery 07/11/25 14:00 07/11/25 14:33 Temperature 97.7 F Pulse Rate 74 Respiratory Rate 17 Blood Pressure 132/74 Pulse Oximetry 97 97 Oxygen Delivery Room Air Exam 2 Const: General: cooperative, healthy appearing and comfortable HENMT: Head: atraumatic Mouth: Yes oropharynx normal Eyes: Alignment and Position: alignment normal and position normal EOM: E OMs intact bilaterally Neck: Neck: normal visual inspection and supple Resp: Effort & Inspection: normal respiratory effort Cardio: Heart sounds: S1 normal heart sound present and S2 normal heart sound present Skin: General skin exam: normal color Neuro: Cranial nerves: Yes CN's II-XII intact bilaterally, Yes facial symmetry and Yes Midline tongue present Cognition (Neuro): normal cognition Speech: normal speech Sensory Exam: normal sensation Coordination: [id number] test normal and Normal rapid alternating movements of the distal upper extremity present (Neuro) Extrem: General: normal to inspection Psych: Appearance: well kempt Mental Status: mental status grossly normal Speech and movement: Normal speech and movement present Affect: normal affect Thought process: Normal thought process present Thought content: Y es Normal thought content present Insight: Good insight present (Psych) J udgement: Good judgement present (Psych) Results Labs 07/11/25 04:31 07/11/25 04:31 Labs: Short CBC 07/11/25 Range/Units 04:31 WBC 6.1 (4.5-10.0) K/mm3 Hgb 13.8 L (14.0-18.0) g/dL Hct 41.6 L (42.0-52.0) % Plt Count 239 (150-375) k/mm3 [facility] 07/11/25 04:31 Sodium 136 L Potassium 4.1 Chloride 102 Carbon Dioxide 28 BUN 17 Creatinine 0.99 Glucose 99 Calcium 8.5
[2025-07-12] VITALS: PULSE 55
[2025-07-12 04:00] VITALS: PULSE 52
[2025-07-12 05:34] VITALS: BP 124/71; PULSE 99; RESP 14; TEMP 36.7; O2SAT 98
[2025-07-12] MEDS: CYANOCOBALAMIN 500 MCG TABLET PO (08:54)
[2025-07-12] MEDS: dilTIAZem HCL CD 120 MG CAP.24HR PO (08:54)
[2025-07-12] MEDS: ASPIRIN 325 MG TABLET PO (08:54)
[2025-07-12] MEDS: ROSUVASTATIN 5 MG TABLET PO (08:54)
[2025-07-12] MEDS: TAMSULOSIN HCL 0.4 MG CAPSULE PO (08:54)
[2025-07-12] MEDS: guaiFENesin 12 HR 600 MG TABCR PO (08:54)
[2025-07-12 08:56] VITALS: PULSE 78
[2025-07-12] MEDS: DOCUSATE SODIUM 100 MG CAPSULE PO (08:56)
[2025-07-12] MEDS: FOLIC ACID 0.4 MG TABLET PO (08:56)
[2025-07-12] MEDS: METOPROLOL SUCCINATE EXT REL 25 MG TABCR PO (08:56)
[2025-07-12] MEDS: THIAMINE HCL 100 MG TABLET PO (08:56)
[2025-07-12] MEDS: CHOLECALCIFEROL (VITAMIN D3) 125 MCG (5,000 UNITS) TABLET PO (08:57)
--- NOTE | 2025-07-12 09:29 | P.CDI_ITS ---
CDI Query Clarification Request Please review the clinical information below and clarify the respiratory diagn osis the patient is being treated for: * Hypoxia or hypoxemia without respiratory failure * Respiratory distress without respiratory failure * Acute respiratory failure with hypoxia * Acute respiratory failure with hypercapnia * Acute respiratory failure with hypoxia and hypercapnia * Acute on chronic respiratory failure with hypoxia * Acute on chronic respiratory failure with hypercapnia * Acute on chronic respiratory failure with hypoxia and hypercapnia * Acute respiratory distress syndrome (ARDS) * Chronic respiratory failure with hypoxia * Chronic respiratory failure with hypercapnia * Chronic respiratory failure with hypoxia and hypercapnia * Other explanation clinical findings, please specify * Unable to determine ER documented: Patient presents the emergency department for seizure versus syncope. Reported seizure-like activity at the dentist after receiving injection some numbing medication. He was not incontinent. He did not bite his tongue. No notable postictal period. He is neurologically intact. Hypoxic into the upper 80s on room air. Placed on oxygen via nasal cannula. Cbc without leukocytosis. Metabolic panel without concerning findings. Urine with evidence of infection. Drug screen is negative. D-dimer is not elevated. Influenza, RSV and COVID screens are negative. Chest x-ray showing opacities in the mid and lower lung zones. Blood cultures obtained, patient started on IV antibiotics. CT brain shows sinus disease. Spoke with hospitalist about patient and workup who accepts admission. Spoke with Neurology who will consult Clinical Impression: Acute hypoxemic respiratory failure, Seizure-like activity H&P: Assessment and plan (1) Seizure-like activity: Code(s): R56.9 - Unspecified convulsions Status: Acute Assessment and Plan: Patient was receiving dental care and had just had the needle inserted to begin numbing him for his procedure when his left arm raised and then he proceeded to have seizure-like activity for 2-3 minutes. Hygienist who was performing injection was only witness. No loss of bowel or bladder during episode. No postictal phase/confusion. No previous history of seizure-like activity. Did not eat prior to dental work and had consumed caffeine. New onset seizures verses vasovagal response. In favor of a vasovagal response as he had not eaten, was receiving an injection, and had consumed caffeine prior to event. Patient was also not postictal. Lactic was elevated at 3.1, however he has concurrent pneumonia. To rule out seizure-like activity, will obtain EEG and brain MRI. Neurology has been consulted. Seizure precautions in interim. Awaiting UA. - EEG - brain MRI - neurology consulted - seizure precautions (2) Pneumonia: Qualifiers: Laterality: bilateral Lung location: lower lobe of lung Pneumonia type: due to unspecified organism Qualified Code(s): J18.9 - Pneumonia, unspecified organism Code(s): J18.9 - Pneumonia, unspecified organism Status: Acute Assessment and Plan: Patient reports congestion, rhinorrhea, and productive cough that have been ongoing for months. CXR showed small opacities in the mid and lower lung zones which could represent atelectasis/scarring or infiltrates. At 1 point during his ED stay he was 89% on room air and was placed on 2 L nasal cannula. Has since been titrated to 1 L nasal cannula and is 98%. Will trial patient on room air this evening. Constellation of symptoms and brief oxygen requirement in favor of pneumonia versus atelectasis picture. Patient started on broad- spectrum antibiotics. - viral PCR negative on 07/10 - started on ceftriaxone and azithromycin on 07/10, continued patient - supportive care: Mucinex, Tessalon Perles, Tylenol - encourage IS - monitor oxygen saturation (3) HTN (hypertension): Qualifiers: Hypertension type: primary hypertension Qualified Code(s): I10 - Essential (primary) hypertension Code(s): I10 - Essential (primary) hypertension Status: Chronic Assessment and Plan: - chronic, currently 145/77, stable - continue home medications: Metoprolol - monitor (4) Atrial flutter: Qualifiers: Atrial flutter type: unspecified Qualified Code(s): I48.92 - Unspecified atrial flutter Code(s): I48.92 - Unspecified atrial flutter Status: Chronic Assessment and Plan: History of atrial flutter s/p cardioversion. EKG completed in the ED on 07/10, reviewed and showed sinus rhythm/RBBB and rate 91. - continue diltiazem ER 120 mg daily and metoprolol ER 25 mg daily CXR: IMPRESSION: 1. Small opacities in the mid and lower lungs which represents atelectasis/scarring or infiltrates. If symptoms persist or worsen, consider a short-term follow-up study or additional imaging for further assessment. <Joelle Clark RN - Last Filed: 07/12/25 09:33> Possible acute respiratory failure with hypoxia 2/2 seizure/apnea but currently resolved. Intermittently O2 sat reported as 88-89 but generally has been 95-98 percent Please review the clinical information below and clarify the respiratory diagnosis the patient is being treated for: * Hypoxia or hypoxemia without respiratory failure * Respiratory distress without respiratory failure * Acute respiratory failure with hypoxia * Acute respiratory failure with hypercapnia * Acute respiratory failure with hypoxia and hypercapnia * Acute on chronic respiratory failure with hypoxia * Acute on chronic respiratory failure with hypercapnia * Acute on chronic respiratory failure with hypoxia and hypercapnia * Acute respiratory distress syndrome (ARDS) * Chronic respiratory failure with hypoxia * Chronic respiratory failure with hypercapnia * Chronic respiratory failure with hypoxia and hypercapnia * Other explanation clinical findings, please specify * Unable to determine ER documented: Patient presents the emergency department for seizure versus syncope. Reported seizure-like activity at the dentist after receiving injection some numbing medication. He was not incontinent. He did not bite his tongue. No notable postictal period. He is neurologically intact. Hypoxic into the upper 80s on room air. Placed on oxygen via nasal cannula. Cbc without leukocytosis. Metabolic panel without concerning findings. Urine with evidence of infection. Drug screen is negative. D-dimer is not elevated. Influenza, RSV and COVID screens are negative. Chest x-ray showing opacities in the mid and lower lung zones. Blood cultures obtained, patient started on IV antibiotics. CT brain shows sinus disease. Spoke with hospitalist about patient and workup who accepts admission. Spoke with Neurology who will consult Clinical Impression: Acute hypoxemic respiratory failure, Seizure-like activity H&P: Assessment and plan (1) Seizure-like activity: Code(s): R56.9 - Unspecified convulsions Status: Acute Assessment and Plan: Patient was receiving dental care and had just had the needle inserted to begin numbing him for his procedure when his left arm raised and then he proceeded to have seizure-like activity for 2-3 minutes. Hygienist who was performing injection was only witness. No loss of bowel or bladder during episode. No postictal phase/confusion. No previous history of seizure-like activity. Did not eat prior to dental work and had consumed caffeine. New onset seizures verses vasovagal response. In favor of a vasovagal response as he had not eaten, was receiving an injection, and had consumed caffeine prior to event. Patient was also not postictal. Lactic was elevated at 3.1, however he has concurrent pneumonia. To rule out seizure-like activity, will obtain EEG and brain MRI. Neurology has been consulted. Seizure precautions in interim. Awaiting UA. - EEG - brain MRI - neurology consulted - seizure precautions (2) Pneumonia: Qualifiers: Laterality: bilateral Lung location: lower lobe of lung Pneumonia type: due to unspecified organism Qualified Code(s): J18.9 - Pneumonia, unspecified organism Code(s): J18.9 - Pneumonia, unspecified organism Status: Acute Assessment and Plan: Patient reports congestion, rhinorrhea, and productive cough that have been ongoing for months. CXR showed small opacities in the mid and lower lung zones which could represent atelectasis/scarring or infiltrates. At 1 point during his ED stay he was 89% on room air and was placed on 2 L nasal cannula. Has since been titrated to 1 L nasal cannula and is 98%. Will trial patient on room air this evening. Constellation of symptoms and brief oxygen requirement in favor of pneumonia versus atelectasis picture. Patient started on broad- spectrum antibiotics. - viral PCR negative on 07/10 - started on ceftriaxone and azithromycin on 07/10, continued patient - supportive care: Mucinex, Tessalon Perles, Tylenol - encourage IS - monitor oxygen saturation (3) HTN (hypertension): Qualifiers: Hypertension type: primary hypertension Qualified Code(s): I10 - Essential (primary) hypertension Code(s): I10 - Essential (primary) hypertension Status: Chronic Assessment and Plan: - chronic, currently 145/77, stable - continue home medications: Metoprolol - monitor (4) Atrial flutter: Qualifiers: Atrial flutter type: unspecified Qualified Code(s): I48.92 - Unspecified atrial flutter Code(s): I48.92 - Unspecified atrial flutter Status: Chronic Assessment and Plan: History of atrial flutter s/p cardioversion. EKG completed in the ED on 07/10, reviewed and showed sinus rhythm/RBBB and rate 91. - continue diltiazem ER 120 mg daily and metoprolol ER 25 mg daily CXR: IMPRESSION: 1. Small opacities in the mid and lower lungs which represents atelectasis/scarring or infiltrates. If symptoms persist or worsen, consider a short-term follow-up study or additional imaging for further assessment. <Sofía Pisano APRN - Last Filed: 07/12/25 13:22>
--- NOTE | 2025-07-12 09:58 | P.PNIM_ITS ---
Progress Note: A&P Assessment and Plan (1) Seizure-like activity: Code(s): R56.9 - Unspecified convulsions Status: Acute Assessment and Plan: - EEG pending - brain MRI no acute pathology - neurology consulted, appreciate recommendations - seizure precautions (2) Pneumonia: Qualifiers: Laterality: bilateral Lung location: lower lobe of lung Pneumonia type: due to unspecified organism Qualified Code(s): J18.9 - Pneumonia, uns pecified organism Code(s): J18.9 - Pneumonia, unspecified organism Status: Acute Assessment and Plan: Pneumonia versus atelectasis - viral PCR negative on 07/10 - started on ceftriaxone and azithromycin 07/10-07/11. Change to doxycyline 100mg BID - supportive care: Mucinex, Tessalon Perles, Tylenol - encourage IS - monitor oxygen saturation UA negative for infection (3) HTN (hypertension): Qualifiers: Hypertension type: primary hypertension Qualified Code(s): I10 - Essential (primary) hypertension Code(s): I10 - Essential (primary) hypertension Status: Chronic Assessment and Plan: - chronic, currently 145/77, stable - continue home medications: Metoprolol - monitor (4) Atrial flutter: Qualifiers: Atrial flutter type: unspecified Qualified Code(s): I48.92 - Unspecified atrial flutter Code(s): I48.92 - Unspecified atrial flutter Status: Chronic Assessment and Plan: EKG showed sinus rhythm/RBBB and rate 91. - continue diltiazem ER 120 mg daily and metoprolol ER 25 mg daily (5) Sinus congestion: Code(s): R09.81 - Nasal congestion Status: Acute Assessment and Plan: Chronic Start flonase Also reporting mild symptoms, possible vertigo, left side --Start loratadine, meclizine prn Plan Diet: Heart healthy GI Prophylaxis: N/a DVT Prophylaxis: SCDs IV fluids: 1 L bolus Lines/Tubes: Peripheral IV Code Status: Full code Time Spent With Patient Time: 57 minutes Subjective Date/time seen: 07/12/25 09:58 Interval history: Feeling ok. No dizziness overnight. No reported seizure activity. Heart rate 50's-60's, NSR or SB. EEG pending Reports a feeling of imbalance/possible vertigo when he turns to the left that has been chronic, unchanged. Also has chronic sinus congestion Follows with cardiology outpatient, Dr. Smiley in [place]. Office is only open Tuesday-, REASON FOR HOSPITALIZATION 70 y/o M with PMH of HTN, HLD, atrial flutters s/p ablation, prediabetes, prostate cancer (2021), and BPH presented here with seizure-like activity Patient being treated for pneumonia on Rocephin azithromycin s/p MRI showed no acute process. neurology consulted, likely vasovagal syncope NSR or SB rate in the 50's on tele Review of Systems Review of Systems: All systems reviewed & are unremarkable except as noted in HPI and below Exam Narrative: General: well appearing, appears stated age. HEENT: normocephalic, atraumatic. Mucous membranes moist. EOMI, PERRLA, bilateral sclera anicteric, no conjunctival injection. Neck supple without JVD, lymphadenopathy, or bruit. Respiratory: clear bilaterally. No rales/rhonic/wheezes. Cardiovascular: Regular rate and rhythm, normal S1-S2. No murmurs, rubs, or clicks. PMI is nondisplaced, capillary refill less than 3 second. Abdomen: Soft, round, no pulsatile masses, nondistended and nontender. No rebound, no guarding. Bowel sounds present to all four quadrants. No high pitch or tinkling sounds, resonant to percussion. Extremities: No cyanosis, clubbing, or edema present. Pulses are palpable 2/2. Active ROM to all four extremities. Neuro: Alert and orientated x 4. PERRLA. Cranial nerves 2-12 intact without focal deficit. Skin: Warm, dry, and intact, without rash, erythema, or lesion. Psych: pleasant, cooperative, normal speech, normal affect, no hallucinations, no dysarthria Objective Data Vital Signs Vital Signs: Vital Signs - 24 hr 07/11/25 12:00 07/11/25 12:34 07/11/25 14:00 Temperature 97.7 F 97.7 F Pulse Rate 68 63 74 Respiratory Rate 17 17 Blood Pressure 130/62 132/74 Pulse Oximetry 97 97 Oxygen Delivery 07/11/25 14:33 07/11/25 16:00 07/11/25 20:00 Temperature Pulse Rate 68 Respiratory Rate Blood Pressure Pulse Oximetry 97 Oxygen Delivery Room Air Room Air 07/11/25 20:00 07/11/25 20:09 07/11/25 21:44 Temperature 98.1 F Pulse Rate 93 61 Respiratory Rate 16 Blood Pressure 136/68 Pulse Oximetry 95 95 Oxygen Delivery Room Air 07/12/25 00:00 07/12/25 04:00 07/12/25 05:34 Temperature 98.0 F Pulse Rate 55 L 52 L 99 Respiratory Rate 14 Blood Pressure 124/71 Pulse Oximetry 98 Oxygen Delivery 07/12/25 08:56 Temperature Pulse Rate 78 Respiratory Rate Blood Pressure Pulse Oximetry Oxygen Delivery Intake/Output Intake/Output: Intake & Output 07/09/25 07/10/25 07/11/25 07/12/25 23:59 23:59 23:59 23:59 Intake Total 1300 1490 610 Balance 1300 1490 610 Meds/Results Medications: Active Medications Generic Name Dose Route Start Last Admin Trade Name Gavin PRN Reason Stop Dose Admin Acetaminophen 650 mg 07/10/25 14:47 Acetaminophen 325 Mg Tablet PO Q6H PRN Pain Rated 1-3, Fever Aspirin 325 mg 07/11/25 09:00 07/12/25 08:54 Aspirin 325 Mg Tablet PO 325 mg DAILY ALBERTINA Administration Benzonatate 100 mg 07/10/25 14:47 Benzonatate 100 Mg Capsule PO TID PRN Cough Cyanocobalamin 500 mcg 07/11/25 09:00 07/12/25 08:54 Cyanocobalamin 500 Mcg Tablet PO 500 mcg DAILY ALBERTINA Administration Diltiazem HCl 120 mg 07/11/25 09:00 07/12/25 08:54 Diltiazem Hcl Cd 120 Mg Cap.24hr PO 120 mg DAILY ALBERTINA Administration Docusate Sodium 100 mg 07/11/25 09:00 07/12/25 08:56 Docusate Sodium 100 Mg Capsule PO 100 mg DAILY ALBERTINA Administration Folic Acid 0.4 mg 07/11/25 09:00 07/12/25 08:56 Folic Acid 0.4 Mg Tablet PO 0.4 mg DAILY ALBERTINA Administration Guaifenesin 600 mg 07/10/25 21:00 07/12/25 08:54 Guaifenesin 12 Hr 600 Mg Tabcr PO 600 mg Q12HR ALBERTINA Administration Ceftriaxone Sodium 1 gm/ 50 mls @ 100 mls/hr 07/11/25 13:00 07/11/25 14:00 Sodium Chloride IVPB Infused Q24H ALBERTINA Infusion Azithromycin 500 mg/ Sodium 250 mls @ 250 mls/hr 07/11/25 14:00 07/11/25 14:59 Chloride IVPB 07/14/25 14:59 Infused Q24H ALBERTINA Infusion Metoprolol Succinate 25 mg 07/11/25 09:00 07/12/25 08:56 Metoprolol Succinate Ext Rel 25 Mg Tabcr PO 25 mg DAILY ALBERTINA Administration Perflutren Lipid Microsphere 0 ml 07/11/25 17:02 Perflutren Lipid Microspheres 1.5 Ml Vial Diluted To 10 Ml Total Volume IV PUSH 07/14/25 17:02 ONCE PRN adequate visualization Protocol Rosuvastatin Calcium 5 mg 07/11/25 09:00 07/12/25 08:54 Rosuvastatin 5 Mg Tablet PO 5 mg DAILY ALBERTINA Administration Tamsulosin HCl 0.4 mg 07/11/25 09:00 07/12/25 08:54 Tamsulosin Hcl 0.4 Mg Capsule PO 0.4 mg DAILY ALBERTINA Administration Thiamine HCl 100 mg 07/11/25 09:00 07/12/25 08:56 Thiamine Hcl 100 Mg Tablet PO 100 mg DAILY ALBERTINA Administration Vitamin D 125 mcg 07/11/25 09:00 07/12/25 08:57 Cholecalciferol (Vitamin D3) 125 Mcg (5,000 Units) Tablet PO 125 mcg DAILY ALBERTINA Administration Radiology Results: ITS Impressions Head CT 07/10/25 10:30 IMPRESSION: No acute brain findings. Sinus disease as described. All CT scans at this facility are performed using low dose modulation techniques as appropriate to perform exam including the following: automated exposure control; use of iterative reconstruction technique; adjustment of the mA and/or kV according to patient size (this includes techniques or standardized protocols for targeted exams where dose is matched to indication/reason for exam). Chest X-Ray 07/10/25 10:35 IMPRESSION: 1. Small opacities in the mid and lower lungs which represents atelectasis/scarring or infiltrates. If symptoms persist or worsen, consider a short-term follow-up study or additional imaging for further assessment. Brain MRI 07/11/25 11:35 IMPRESSION: 1. No discrete lesion, acute ischemic event or hemorrhage. 2. Mild chronic microvascular ischemic white matter changes. 3. Complete opacification of the right maxillary sinus consistent with paranasal sinus disease. Carotid Doppler Study 07/11/25 20:44 IMPRESSION: 1. Less than 50% stenosis in the right internal carotid artery by sonographic criteria. 2. Less than 50% stenosis in the left internal carotid artery by sonographic criteria. Quality VTE Prophylaxis VTE prophylaxis: mechanical ordered Hospitalist MIPS Advance Care Plan I have confirmed that the patient's Advanced Care Plan is present, code status is documented, or surrogate decision maker is listed in patient medical record.: Yes Medication Reconciliation I have utilized all available resources to obtain, update and review the patients current medications (includes all prescriptions, OTC, herbals, cannabis, and nutritional supplements).: Yes
--- NOTE | 2025-07-12 13:24 | P.DS_ITS ---
DS: Admitting Diagnosis Discharge Date 07/12/2025 Admitting Diagnosis Seizure-like activity DS: Discharge Diagnosis Discharge Diagnosis (1) Syncope: Code(s): R55 - Syncope and collapse Status: Acute (2) Vasovagal syncope: Code(s): R55 - Syncope and collapse Status: Acute DS: Summary Hospital Course Reason for hospitalization: Copied from HPI 07/10: 70 y/o M with PMH of HTN, HLD, atrial flutters s/p ablation, prediabetes, prostate cancer (2021), and BPH presents here with seizure-like activity. The patient presents here from [facility] dentist office via EMS for further evaluation of seizure-like activity. HPI obtained through patient report, patient's spouse report who spoke with dental office, and EMS report. The patient reports he was at the dentist office for dental work. He was in the chair and the hygienist had just placed the needle in his gumline to numb him with Articaine. She was only able to inject a very small amount when his left arm raised which prompted her to stop injecting. She then removed the needle when the patient started having abnormal muscle movements that appeared seizure- like. High [place]ilar reported to EMS and the patient's that the patient seized for around 2-3 minutes. Patient did not have any loss of bowel or bladder during these events. No confusion upon coming to. He reports prior to having the dental work he did not eat but did consume caffeine. No previous history of difficulty with receiving medical care/needle/injections. No previous history of seizure-like activity or syncope. He did report during the ambulance ride he became slightly nauseous which resolved with Zofran. He reports no recollection of events after they stuck the needle in but does remember being in the office and the ambulance ride. Patient additionally reports congestion, rhinorrhea, and a productive cough that has been ongoing for some months. He denies any fever, chills, body aches, vomiting, diarrhea, chest pain, shortness of breath, or palpitations. Initial VS at presentation: 98.4? F, HR 99, R 21, 132/79, and 96% on RA. ED workup showed: WBC 6.9, no anemia, sodium 133, creatinine 0.87 and GFR >60, glucose 115, initial troponin negative, UA showed trace ketones otherwise unremarkable. UDS negative. Viral PCR negative. Head CT showed no acute findings, sinus disease noted (near complete opacification the right maxillary sinus and 1 in the anterior right ethmoids, some degree of mucosal thickening in the nasal cavity). CXR showed small opacities in the mid and lower lung zones which could represent atelectasis/scarring or infiltrates. Hospital Course: Seizure-like activity: Suspect vasovagal syncope - EEG pending for discharge. Spoke with Dr. Fleming and can follow up with him in the office. - brain MRI no acute pathology - neurology consulted, appreciate recommendations - seizure precautions. Discussed driving restrictions until result of EEG and then per PCP --Follow up with cardiology to consider event monitor Pneumonia: Pneumonia versus atelectasis - viral PCR negative on 07/10 - started on ceftriaxone and azithromycin 07/10-07/11. Change to doxycyline 100mg BID since QTc 485 - supportive care: Mucinex, Tessalon Perles, Tylenol - encourage IS - monitor oxygen saturation UA negative for infection HTN (hypertension): - chronic, currently 145/77, stable - continue home medications: Metoprolol - monitor Atrial flutter: EKG showed sinus rhythm/RBBB and rate 91. - continueddiltiazem ER 120 mg daily and metoprolol ER 25 mg daily Sinus congestion: Chronic Start flonase Also reporting mild symptoms, possible vertigo, left side --Start loratadine, meclizine prn --Consider outpatient therapy if not resolved with treatment of sinusitis Status at Discharge Cognitive/behavioral status at discharge: A&Ox4 Time Spent with Patient Time attestation: Total time spent providing and/or coordinating discharge services:47 minutes Discharge Plan Discharge Attending physician on discharge: Sofía Pisano Consulting providers: Arash Stearns; Sofía Pisano Discharging Clinician: Sofía Pisano Anticipated Discharge Date/Time: 07/12/25 13:31 Patient Disposition: Home Activity: january shower Diet: heart healthy Discharge Instructions: Recommend follow up with your PCP in 1-2 weeks. Follow up with cardiology to discuss an event monitor. Follow up with Dr. Fleming in the office Avoid activities that would be dangerous if another episode happened (roofs, ladders, open flames, swimming, driving for now) EEG will result tomorrow for additional information to confirm no evidence of seizures Patient Instructions: Antibiotic Form Patient Language: [place] Stand Alone Forms: General Discharge Information Follow-up/Referrals: Angélica Fleming MD [Physician, Neurology] - 4 Weeks Discharge Medications: New meclizine 25 mg Tablet 25 mg PO BID PRN (Reason: Dizziness) Qty: 30 2RF benzonatate 100 mg Capsule 100 mg PO TID PRN (Reason: Cough) Qty: 20 0RF fluticasone propionate 50 mcg/actuation Kimball,Suspension 2 spray intranasal QAM Qty: 16 0RF doxycycline hyclate 100 mg Tablet 100 mg PO Q12HR Qty: 8 0RF loratadine 10 mg Tablet 10 mg PO QAM Qty: 30 0RF guaifenesin [Mucus Relief ER] 600 mg Tablet Extended Release 12hr 600 mg PO Q12HR PRN (Reason: cough/secretions) Qty: 60 0RF Continued thiamine HCl (vitamin B1) 100 mg tablet 100 mg PO DAILY cyanocobalamin (vitamin B-12) 500 mcg tablet 500 mcg PO DAILY cholecalciferol (vitamin D3) 5,000 unit capsule 5,000 unit PO DAILY folic acid 400 mcg tablet 0.4 mg PO DAILY docusate sodium [Colace] 100 mg capsule 100 mg PO DAILY aspirin 325 mg tablet 325 mg PO DAILY diltiazem HCl [Cardizem CD] 120 mg capsule,extended release 24hr 120 mg PO DAILY Qty: 90 1RF tamsulosin 0.4 mg capsule 0.4 mg PO DAILY Qty: 90 1RF Rx Instructions: Take 1 capsule by mouth once daily in the morning metoprolol succinate 25 mg tablet extended release 24 hr See Rx Instructions .ROUTE .COMPLEX Qty: 90 1RF Dose Instruction: Take 1 tablet by mouth once daily Rx Instructions: Take 1 tablet by mouth once daily rosuvastatin 5 mg tablet 5 mg PO DAILY Qty: 90 3RF Date of admission: 07/11/25 10:08 Primary Care Provider: Jonathan Matamoros Admitting Provider: Lissette Messer Attending physician on admission: Lissette Messer Condition: Stable Quality VTE Prophylaxis VTE prophylaxis: mechanical ordered Hospitalist MIPS Heart Failure (Exclusion) Patient has history of Heart Transplant or Left Ventricular Assistive Device?: No IF YES, STOP HERE Heart Failure (Qualifier) Patient has current or prior documentation of LVEF less than or equal to 40%, or mod/servere depressed LVSF?: No IF NO, STOP HERE
[2025-07-12] MEDS: LORATADINE 10 MG TABLET PO (13:38)
[2025-07-12] MEDS: DOXYCYCLINE HYCLATE 100 MG TABLET PO (13:38)
[2025-07-12] MEDS: FLUTICASONE PROPIONATE 0.05% NA SPR 16 GM BTL (*BKC) 2 SPRAY NASAL (13:38)
--- NOTE | 2025-07-15 10:40 | WPDNEUROLOGY ---
Neurology EEG Report General Information Date of Study: 07/12/25 TEST electroencephalogram DIAGNOSIS seizure-like activity during the preparation for dental procedure CONDITION OF RECORDING bedside according EEG NUMBER [id number] CLINICAL HISTORY the patient is 70-year-old who has had a seizure-like activity during the dental procedure was and she was being given. The patient unresponsive for 2-3 minutes. Later the patient felt nauseous and sweaty. Patient's stated that he has lot of caffeine and no for before the procedure. EEG DESCRIPTION During wakefulness the background activity consists of posterior dominant alpha rhythm patient amplitude of 20-40 microvolts which appears well-formed and reactive to eye opening. Anteriorly low amplitude mixed frequency activity was seen. There is a good anteroposterior gradient. Hyperventilation was not performed. Photic stimulation was performed during which no significant abnormal background changes were seen. Patient did not progress to stage 2 sleep. IMPRESSION This is a normal EEG obtained during awake state.
== END 2025-07-12 14:05 | disposition home or self-care (01) | DRG 312 ==
LOC: ANHED 09:52 → ANH3MEDSUR 17:14 → ANH2MED 17:59
PROVIDERS: Student in an Organized Health Care Education/Training Program; Admitting Provider General Practice; Emergency Provider Physician Assistant; PCP Family Medicine; Visit Provider Nurse Practitioner Acute Care
DX: R55 Syncope and collapse (principal); J18.9 Pneumonia, unspecified organism; J96.01 Acute respiratory failure with hypoxia; I48.92 Unspecified atrial flutter; I10 Essential (primary) hypertension; R73.03 Prediabetes; J32.0 Chronic maxillary sinusitis; E78.5 Hyperlipidemia, unspecified; N40.0 Benign prostatic hyperplasia without lower urinary tract symptoms; Z85.46 Personal history of malignant neoplasm of prostate
CPT/HCPCS: 36415; 70450; 70553; 71046; 80048; 80053; 80307; 81003; 82077; 82550; 82948; 83605; 84484; 85025; 85380; 87040; 87637; 93005; 93880; 95816; 96361; 96365; 96367; 99285; A9270; A9577; G0378; J0456; J0696; J7030; J7050